=== PATIENT | male | born 1975 | race Caucasian/White ===

== ENCOUNTER 2019-04-03 17:53 | Emergency (ER) | payer OTHER, SELFPAY ==
[2019-04-03 18:07] VITALS: BP 120/67; PULSE 77; RESP 20; TEMP 36.7; O2SAT 100
--- NOTE | 2019-04-03 18:38 | ED.GENADULT ---
HPI - General Adult General Chief complaint: Dental/Oral Stated complaint: toothache/jaw pain Time Seen by Provider: 04/03/19 18:30 Source: patient Mode of arrival: ambulatory Limitations: no limitations History of Present Illness HPI narrative: Patient is a 43-year-old male who presents to emergency department for evaluation of right lower dental pain with history of decay noting moderate aching pain worse with eating denies fever chills nausea vomiting or URI symptoms and is otherwise resting comfortably in the room upon arrival has taken ibuprofen with minimal improvement Related Data Home Medications Medication Instructions Recorded Confirmed famotidine 04/03/19 Allergies Allergy/AdvReac Type Severity Reaction Status Date / Time haloperidol Allergy Unknown Anaphylaxis Verified 04/03/19 18:09 Review of Systems Review of Systems: Narrative: CONSTITUTIONAL: Denies fever, chills, or sweats. EYES: Denies redness, or discharge. ENT: Denies rhinorrhea, congestion, sore throat, or otalgia. RESPIRATORY: Denies cough or dyspnea. GASTROINTESTINAL: Denies nausea, vomiting SKIN: Denies facial swelling MUSCULOSKELETAL: Denies back pain, joint pain, or myalgia. NEUROLOGIC: Denies headache, dizziness PMFSH Social History Social History Smoking status: Never smoker Second hand tobacco smoke exposure: Yes Alcohol intake: never Gender identity (if verbalized by the patient): Male Exam Narrative: Exam Narrative: GENERAL: Well-appearing, well-nourished, and in no acute distress. HEAD: Normocephalic, atraumatic. EYES: PERRLA and EOMI. ENT: Nares clear, no rhinorrhea or epistaxis. Mucous membranes moist. Oropharynx without tonsillar hypertrophy exudate or other lesions. Gross dental decay uvula midline no trismus or drooling NECK: Supple. No adenopathy or masses. CHEST: Clear to auscultation. No respiratory distress. No wheezes rales or rhonchi HEART: Regular rate and rhythm. No murmur heard. . EXTREMITIES: Normal range of motion. No edema. SKIN: Warm, dry, no rash. NEURO: No focal deficits. Alert and oriented x3. Cranial nerves II through XII grossly intact PSYCH: Normal mood and affect. Course Course Emergency Course: Patient in the room aware of case findings treatment plan and diagnosis agreeing to follow-up as directed or to return if symptoms worsen or concerns Vital Signs Vital signs: Vital Signs Temperature 98.1 F 04/03/19 18:07 Pulse Rate 77 04/03/19 18:07 Respiratory Rate 20 04/03/19 18:07 Blood Pressure 120/67 04/03/19 18:07 Pulse Oximetry 100 04/03/19 18:07 Temperature 98.1 F 04/03/19 18:07 Pulse Rate 77 04/03/19 18:07 Respiratory Rate 20 04/03/19 18:07 Blood Pressure 120/67 04/03/19 18:07 Pulse Oximetry 100 04/03/19 18:07 Medical Decision Making MDM Narrative Medical decision making narrative: Paitents pain and complaint coupled with physical findings are consistant with dentalgia. There are no focal signs of space occupying lesions that are compromising to the ariway. The floor of the mouth is soft with no signs of Ludwigs Angina. Patient is without trismus or drooling and able to swallow secreations. Patient is felt appropriate for discharge home with dental follow up. Vital Signs Vital Signs: Vital Signs Temperature 98.1 F 04/03/19 18:07 Pulse Rate 77 04/03/19 18:07 Respiratory Rate 20 04/03/19 18:07 Blood Pressure 120/67 04/03/19 18:07 Pulse Oximetry 100 04/03/19 18:07 Temperature 98.1 F 04/03/19 18:07 Pulse Rate 77 04/03/19 18:07 Respiratory Rate 20 04/03/19 18:07 Blood Pressure 120/67 04/03/19 18:07 Pulse Oximetry 100 04/03/19 18:07 Discharge Plan Discharge Clinical Impression: Toothache Patient Disposition: Home, Self-Care Condition: Stable Instructions: Antibiotic Form, Toothache (ED) Additional Instructions: Follow-up with dent
== END 2019-04-03 19:02 | disposition home or self-care (01) ==
PROVIDERS: Emergency Provider Emergency Medicine; PCP Physician Assistant
DX: K08.89 Other specified disorders of teeth and supporting structures (principal)
CPT/HCPCS: 99283; A9270

== ENCOUNTER 2022-05-27 20:39 | Emergency (ER) | payer MEDICAID, SELFPAY ==
--- NOTE | ~2022-05-27 | XR_ITS ---
XR foot RT min 3V 05/27/2022 21:13 INDICATION: Right foot pain PROCEDURE: 4 views right foot COMPARISON: No prior studies for comparison. FINDINGS: Fracture, dislocation or subluxation is not identified. Lisfranc joint is intact. Small deg enerative calcaneal enthesophyte. The soft tissues appear within normal limits. No foreign bodies ar e identified. IMPRESSION: 1: NO ACUTE BONE OR JOINT ABNORMALITY IDENTIFIED. Reviewed, dictated and finalized at location A.
[2022-05-27 20:44] VITALS: BP 141/91; PULSE 96; RESP 20; TEMP 37.2; O2SAT 99
[2022-05-27] MEDS: IBUPROFEN 400 MG TABLET 800 MG PO (21:01)
[2022-05-27] MEDS: ACETAMINOPHEN 500 MG TABLET 1000 MG PO (21:01)
[2022-05-27] MEDS: traMADol HCL (*CRX) 50 MG TABLET 100 MG PO (21:04)
--- NOTE | 2022-05-27 21:16 | ED.GENADULT ---
HPI - General Adult General Chief complaint: Extremity Injury, Lower Stated complaint: Foot pain Time Seen by Provider: 05/27/22 20:40 History of Present Illness HPI narrative: The patient is a 46-year-old male with no significant past medical history. For the last 6 months or more, the patient has had pain on the upper aspect of his right foot, close to the ankle superficially and proximally. He reports that his foot swells up at times, after a long day at work with wearing his work boots. They are not steel-toed boots. No pain in the left foot. No pain at the ankle or in the great toe. No pain elsewhere in the joints. No trauma. No deformity. Related Data Allergies Allergy/AdvReac Type Severity Reaction Status Date / Time haloperidol Allergy Unknown Anaphylaxis Verified 04/03/19 18:09 Review of Systems Review of Systems: All systems reviewed & are unremarkable except as noted in HPI and below Constitutional: Constitutional: Reports as per HPI, Reports no additional constitutional complaints, Denies chills, Denies excessive sweating, Denies fatigue, Denies fever(s), Denies headache(s) and Denies weakness Eyes: Eyes: Reports as per HPI, Reports no additional eye complaints, Denies change in vision and Denies photophobia ENT: Reports system reviewed and no additional complaints, except as documented, Reports as per HPI, Denies dysphagia, Denies vertigo, Denies dizziness, Denies headache(s), Denies lip swelling, Denies nasal congestion, Denies sore throat, Denies throat swelling and Denies tongue swelling Cardiovascular: Cardiovascular: Reports as per HPI, Reports no additional cardiovascular complaints, Denies chest pain, Denies syncope, Denies rapid heart rate and Denies dyspnea Respiratory: Respiratory: Reports as per HPI, Reports no additional respiratory complaints, Denies chest congestion, Denies cough, Denies dyspnea and Denies wheezing Gastrointestinal: Gastrointestinal: Reports as per HPI, Reports no additional gastrointestinal complaints, Denies abdominal pain, Denies constipation, Denies dysphagia, Denies diarrhea, Denies nausea and Denies vomiting Genitourinary: Genitourinary: Reports as per HPI, Denies hematuria, Denies oliguria, Denies dysuria, Denies urinary frequency, Denies urinary incontinence and Denies urinary urgency Musculoskeletal: Musculoskeletal: Reports no additional musculoskeletal complaints, Denies back pain, Denies myalgias, Denies arthralgias, Denies joint swelling and Denies numbness Integumentary/Breasts: Skin/Breast: Reports system reviewed and no additional complaints, except as docu, Denies pruritus, Denies erythema, Denies rash and Denies skin ulcer Neurologic: Reports system reviewed and no additional complaints, except as documented, Reports as per HPI, Denies confusion, Denies vertigo, Denies dizziness, Denies syncope, Denies headache(s), Denies focal weakness, Denies numbness and Denies weakness Psychiatric: Psychiatric: Reports as per HPI, Denies anxiety, Denies confusion, Denies depression, Denies homicidal ideation and Denies suicidal ideation Endocrine: Endocrine: Reports no additional endocrine complaints, Denies excessive sweating, Denies fatigue, Denies polydipsia and Denies polyuria Hematologic/Lymphatic: Hematologic/Lymphatic: Reports no additional hematologic/lymphatic complaints, Denies easy bleeding and Denies easy bruising Allergic/Immunologic: Allergic/Immunologic: Reports no additional allergic/immunologic complaints, Denies lip swelling, Denies throat swelling, Denies tongue swelling and Denies wheezing PMFSH Social History Social History Smoking status: Never smoker Second hand tobacco smoke exposure: Yes Alcohol intake: never Gender identity (if verbalized by the patient): Male Exam Const: General: healthy appearing, no acute distress, alert and well nourished; No confusion or ill appearing Nutritional Appearan
[2022-05-27 21:39] VITALS: BP 116/86; PULSE 67; RESP 20; TEMP 36.6; O2SAT 99
== END 2022-05-27 21:40 | disposition home or self-care (01) ==
PROVIDERS: Emergency Provider Emergency Medicine
DX: M79.671 Pain in right foot (principal)
CPT/HCPCS: 73630; 99283; A9270

== ENCOUNTER 2022-06-17 01:13 | Emergency (ER) | payer MEDICAID, SELFPAY ==
[2022-06-17] VITALS (9 sets, daily range): BP systolic 106–142; BP diastolic 55–93; PULSE 64–109; RESP 16–23; TEMP 36.6–37; O2SAT 93–97
--- NOTE | ~2022-06-17 | XR_ITS ---
EXAMINATION: XR chest 2V DATE: 06/17/2022 01:47 INDICATION: Shortness of breath. Chest tightness. TECHNIQUE: Frontal and lateral views of the chest were obtained. COMPARISON: Chest 2 views 11/12/2018 FINDINGS: Calcified pulmonary nodules and calcified hilar lymph nodes are consistent with old granulo matous disease. No pleural effusion or pneumothorax. The heart size is normal. IMPRESSION: 1. No acute cardiopulmonary disease. Reviewed, dictated and finalized at location A.
--- NOTE | 2022-06-17 01:15 | ECG_ITS ---
Measurements Intervals [place] Rate: 85 P: 54 NC: 166 QRS: 66 QRSD: 94 T: 51 QT: 346 QTc: 414 Interpretive Statements SINUS RHYTHM WITH SINUS ARRHYTHMIA LOW QRS VOLTAGE IN PRECORDIAL LEADS MINIMAL Q WAVES- INFERIOR LEADS BASELINE ARTIFACT- I, II, III, AVR, AVL, AVF, V1, V4-V6 BORDERLINE ECG COMPARED TO ECG 11/12/2018 20:03:23 SINUS ARRHYTHMIA NOW PRESENT Electronically Signed On 06-17-2022 6:44:11 CDT by Jeffry Julian D.O.
--- NOTE | 2022-06-17 01:28 | ED.SOB ---
HPI - SOB/Dyspnea General Chief Complaint: Shortness of Breath/Dyspnea Stated Complaint: Asthma Source: patient Mode of arrival: ambulatory Limitations: no limitations History of Present Illness HPI Narrative: 46 year old male presents to the Emergency Department complaining of shortness of breath and chest tightness when trying to breath. Onset 20 minutes ago while laying in bed at rest. History of asthma. He used his inhaler twice without any relief. Non-smoker. No cough or chest congestion. 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 Family history positive for heart disease. MD elicited complaint: shortness of breath Pertinent past history: asthma Onset (ago): minute(s) (20) Timing: constant Severity: moderate Exacerbating factors: nothing Relieving factors: nothing Known history of: asthma Treatment prior to arrival: bronchodilator (without relief) Related Data Home oxygen amount: none Home Medications Medication Instructions Recorded Confirmed levalbuterol tartrate 2 puff inhalation Q4-6H PRN 06/17/22 06/17/22 Shortness Of Breath Allergies Allergy/AdvReac Type Severity Reaction Status Date / Time haloperidol Allergy Unknown Anaphylaxis Verified 04/03/19 18:09 Review of Systems Review of Systems: All systems reviewed & are unremarkable except as noted in HPI and below Constitutional: Constitutional: Reports as per HPI, Denies chills and Denies fever(s) Eyes: Eyes: Reports as per HPI ENT: Reports system reviewed and no additional complaints, except as documented Cardiovascular: Cardiovascular: Reports as per HPI Respiratory: Respiratory: Reports as per HPI and Reports dyspnea Gastrointestinal: Gastrointestinal: Reports as per HPI, Denies diarrhea, Denies nausea and Denies vomiting Musculoskeletal: Musculoskeletal: Reports no additional musculoskeletal complaints Integumentary/Breasts: Skin/Breast: Reports system reviewed and no additional complaints, except as docu Neurologic: Reports system reviewed and no additional complaints, except as documented [facility] Social History Social History Smoking status: Never smoker Second hand tobacco smoke exposure: Yes Alcohol intake: never Gender identity (if verbalized by the patient): Male Exam Const: General: no acute distress Nutritional Appearance: obese Orientation/consciousness: patient oriented x3 Limitations: no limitations HENMT: Head: normal to inspection Ears: external ears normal Face/Nose/Sinus: Normal external nose present Face and sinus: normal facial exam Mouth: Yes Normal oral and palatal mucosa present Eyes: Conjunctivae: conjunctivae normal Pupils: Equal, round and reactive pupils present EOM: EOMs intact bilaterally Direct Ophthalmoscopy: no photophobia Neck: Neck: normal visual inspection Chest: Chest palpation & inspection: normal inspection of the chest Resp: Effort & Inspection: normal respiratory effort Auscultation: clear to auscultation bilaterally Cardio: Rate: regular rate Rhythm: regular rhythm Heart sounds: no murmurs GI: GI Palp: Yes Soft to palpation and No Tenderness to palpation present (GI) Auscultation: normal bowel sounds Skin: General skin exam: normal color Rashes: no rashes Neuro: General: patient oriented x3, moves all extremities, no meningeal signs, no focal motor deficits and CN's II-XI intact bilaterally Cranial nerves: Yes Nystagmus not present Speech: normal speech Extrem: General: normal to inspection and no pedal edema Psych: Mental Status: mental status grossly normal Course Course Emergency Course: 46 y/o male presents to the ED c/o SOB and chest tightness. Onset 20 minutes ago while at rest in bed. Used inhaler without relief. PE: no acute findings CBC: H/H 14.5/44.3, Plt 248; wbc 8.3 with 65 S, 21 L, 11 M CMP: Na 141, K 3.8, Cl 107, CO2 26, Glc 97, BUN 16, Cr 1.12; LFT's normal TNI: <4 / 3
[2022-06-17] MEDS: NITROGLYCERIN SL 0.4 MG TABLET SUBLINGUAL ×2 (01:34→01:50)
[2022-06-17] MEDS: ASPIRIN 81 MG CHEWABLE TABLET 324 MG PO (01:34)
[2022-06-17 01:45] LABS: Base Excess ABG -1.4 mmol/L (0-2); Carboxyhemoglobin 0.4 % (0-1.5); HCO3 ABG 22.2 mmol/L (23-29); Methemoglobin ABG 0.3 % (0-1.5); Oxygen Saturation ABG 96.7 % (95-97); PCO2 ABG 34.6 mmHg (35-45); PO2 ABG 88.5 mmHg (80-90); Reduced Hemoglobin 3.3 % (0-1.5); Total Hemoglobin 14.8 g/dL (12.0-18.0); pH ABG 7.43 (7.35-7.45)
[2022-06-17 01:46] LABS: Device ROOM AIR; Modified Allen's Test Pass; Site Drawn LEFT RADIAL
[2022-06-17 01:49] LABS: Basophils Absolute Auto 0.04 K/mm3 (0.00-0.10); Basophils Percent Auto 0.5 % (0.0-1.0); Eosinophils Absolute Auto 0.17 K/mm3 (0.02-0.50); Eosinophils Percent Auto 2.1 % (1.0-6.0); Hematocrit 44.3 % (40.0-54.0); Hemoglobin 14.5 g/dL (14.0-18.0); Immature Granulocyte Absolute 0.04 K/mm3 (0.00-0.00); Immature Granulocyte Percent A 0.5 % (0.0-0.0); Lymphocytes Absolute Auto 1.76 K/mm3 (1.10-4.50); Lymphocytes Percent Auto 21.2 % (18.0-42.0); Mean Corpuscular HGB Conc 32.7 g/dL (32.0-36.0); Mean Corpuscular Hemoglobin 28.8 pg (27.0-31.0); Mean Corpuscular Volume 88.1 fL (78.0-102.0); Mean Platelet Volume 9.8 fl (8.7-11.0); Monocytes Absolute Auto 0.91 K/mm3 (0.10-0.90); Neutrophils Absolute Auto 5.4 K/mm3 (1.7-7.2); Neutrophils Percent Auto 64.7 % (50.0-70.0); Platelet Count Result 248 K/mm3 (150-420); Red Blood Count 5.03 M/mm3 (4.70-6.10); Red Cell Distribution Width 13.2 % (11.6-14.4); White Blood Count 8.3 K/mm3 (4.8-10.8)
[2022-06-17 02:05] LABS: D Dimer 0.25 mg/L (0.19-0.50)
[2022-06-17 02:07] LABS: Alanine Aminotransferase 32 U/L (16-63); Albumin Level 3.6 g/dL (3.4-5.0); Alkaline Phosphatase 97 U/L (46-116); Anion Gap 8 mmol/L (8-16); Aspartate Amino Transferase 25 U/L (15-37); Bilirubin,Total 0.3 mg/dL (0.00-1.00); Blood Urea Nitrogen 16 mg/dL (7-18); Calcium 8.6 mg/dL (8.5-10.1); Carbon Dioxide 26 mmol/L (21-32); Chloride 107 mmol/L (98-108); Estimated CRCL calculation 87 ml/min; Estimated Glomerular Filt Rate > 60; Glucose 97 mg/dL (70-99); Osmolality Calculated 293 mOsm/kg (285-295); Potassium 3.8 mmol/L (3.5-5.1); Sodium 141 mmol/L (136-145); Total Protein 7.1 g/dL (6.4-8.2)
[2022-06-17 02:08] LABS: Troponin I < 4.0 ng/L (0.00-60.4)
--- NOTE | 2022-06-17 02:14 | PC.NURSE ---
nasal swab for Covid sent to lab
[2022-06-17 03:49] LABS: Influenza A QL RT-PCR Negative (Negative); Influenza B QL RT-PCR Negative (Negative); SARS-CoV-2 RNA PCR Negative (Negative)
[2022-06-17 05:14] LABS: Troponin I < 4.0 ng/L (0.00-60.4)
== END 2022-06-17 05:40 | disposition home or self-care (01) ==
PROVIDERS: Emergency Provider Emergency Medicine; PCP Family Medicine
DX: I25.9 Chronic ischemic heart disease, unspecified (principal); R06.02 Shortness of breath; Z20.822 Contact with and (suspected) exposure to COVID-19
CPT/HCPCS: 36415; 36600; 71046; 80053; 82375; 82805; 83050; 84484; 85025; 85380; 87636; 93005; 99284; A9270

== ENCOUNTER 2022-08-08 22:43 | Emergency (ER) | payer OTHER, SELFPAY ==
--- NOTE | ~2022-08-08 | XR_ITS ---
EXAMINATION: XR chest 2V Exam Date/Time: 08/08/2022 22:54 CDT HISTORY: cp Comparison: 06/17/2022, 01/16/2014. RESULT: Lines, tubes, and devices: None. Lungs and pleura: Clear. Calcified granulomas. Cardiomediastinal silhouette: Stable. Calcified hilar nodes. Other: No acute osseous or upper abdominal finding. IMPRESSION: No acute cardiopulmonary process. Reviewed, dictated and finalized at location K.
--- NOTE | 2022-08-08 22:44 | ECG_ITS ---
Measurements Intervals [place] Rate: 69 P: 54 NC: 178 QRS: 55 QRSD: 102 T: 44 QT: 382 QTc: 410 Interpretive Statements SINUS RHYTHM WITH SINUS ARRHYTHMIA NORMAL ELECTROCARDIOGRAM COMPARED TO ECG 06/17/2022 01:27:03 NO SIGNIFICANT CHANGES Electronically Signed On 08-09-2022 17:06:28 CDT by Kai Lee M.D.
[2022-08-08 22:50] VITALS: BP 146/97; PULSE 73; RESP 18; TEMP 36.2; O2SAT 100
[2022-08-08] MEDS: MECLIZINE HCL 25 MG TABLET PO (23:08)
[2022-08-08] MEDS: ONDANSETRON INJ 4 MG/2 ML VIAL IV PUSH (23:08)
[2022-08-08 23:10] LABS: Basophils Absolute Auto 0.1 K/mm3 (0.0-0.1); Basophils Percent Auto 0.7 % (0.2-1.2); Eosinophils Absolute Auto 0.2 K/mm3 (0-0.3); Eosinophils Percent Auto 3.4 % (0-4.4); Hematocrit 44.9 % (42.0-52.0); Hemoglobin 14.9 g/dL (14.0-18.0); Immature Granulocyte Absolute 0.02 K/mm3 (0.00-0.031); Immature Granulocyte Percent A 0.3 % (0-0.5); Lymphocytes Absolute Auto 1.81 K/mm3 (0.9-3.2); Lymphocytes Percent Auto 26.7 % (18.3-44.2); Mean Corpuscular HGB Conc 33.2 g/dl (32-36); Mean Corpuscular Hemoglobin 28.9 pg (26-34); Mean Platelet Volume 9.2 fl (7.4-10.4); Monocytes Absolute Auto 0.8 K/mm3 (0.1-0.6); Monocytes Percent Auto 11.8 % (2.6-8.5); Neutrophils Absolute Auto 3.9 K/mm3 (1.3-6.7); Neutrophils Percent Auto 57.1 % (45.5-73.1); Platelet Count Result 252 k/mm3 (150-375); Red Blood Count 5.16 M/mm3 (4.6-6.20); Red Cell Distribution Width 13.1 % (11.5-14.5); White Blood Count 6.8 K/mm3 (4.5-10.0)
[2022-08-08] MEDS: ASPIRIN 81 MG CHEWABLE TABLET 324 MG PO (23:12)
[2022-08-08 23:13] VITALS: PULSE 73
[2022-08-08 23:22] LABS: Partial Thromboplastin Time 27.1 SECONDS (22.3-36.8); Prothrombin Time 13.1 Seconds (11.1-14.7)
[2022-08-08 23:23] LABS: Alanine Aminotransferase 30 U/L (6-50); Albumin Level 4.1 g/dL (3.5-5.1); Alkaline Phosphatase 78 U/L (38-126); Anion Gap 6 mmol/L (8-16); Aspartate Amino Transferase 33 U/L (17-59); Bilirubin,Total 0.3 mg/dL (0.2-1.3); Blood Urea Nitrogen 18 mg/dL (9-20); Calcium 8.8 mg/dL (8.4-10.2); Carbon Dioxide 25 mmol/L (22-30); Chloride 108 mmol/L (98-107); Estimated CRCL calculation 105 ml/min; Estimated Glomerular Filt Rate > 60; Glucose 103 mg/dL (65-110); Lipase 93 U/L (23-300); Sodium 139 mmol/L (137-145)
[2022-08-08 23:33] LABS: Troponin I < 0.012 ng/mL (0.000-0.034)
--- NOTE | 2022-08-08 23:57 | ED.DIZZY ---
HPI - Dizziness General Chief Complaint: Dizziness Stated Complaint: dizziness, chest pain Time Seen by Provider: 08/08/22 22:54 History of Present Illness HPI Narrative: 46-year-old male presented to the emergency department for evaluation of dizziness and chest pain. 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 Patient has been doing a lot of bending over. While patient was in the car this evening he developed a sensation of dizziness and then did develop some subsequent chest pain. Upon arrival to ED patient was treated with meclizine and states that this did help with his dizziness. Related Data Home Medications Medication Instructions Recorded Confirmed levalbuterol tartrate 2 puff inhalation Q4-6H PRN 06/17/22 06/17/22 Shortness Of Breath Allergies Allergy/AdvReac Type Severity Reaction Status Date / Time haloperidol Allergy Unknown Anaphylaxis Verified 08/08/22 23:09 Review of Systems Review of Systems: All systems reviewed & are unremarkable except as noted in HPI and below PMFSH Social History Social History Smoking status: Never smoker Second hand tobacco smoke exposure: Yes Alcohol intake: never Gender identity (if verbalized by the patient): Male Exam Narrative: APPEARANCE: Well appearing, no pain, no distress, well-nourished. HEAD: normocephalic, atraumatic. EYES: PERRLA/EOMI, conjunctivae clear. NOSE: Normal no drainage NECK: Supple. No adenopathy, no masses. RESPIRATORY: Airway patent, respirations nonlabored. Clear to auscultation bilaterally, no rales, rhonchi, wheezing. CARDIOVASCULAR: Regular rate and rhythm without murmurs rubs or gallops. ABDOMINAL: Soft, nontender, nondistended, normal bowel sounds MUSCULOSKELETAL: Moves all extremities. Strength/ROM intact, No edema, No calf tenderness. NEURO: Alert. Cranial nerves II through XII intact. Grossly intact SKIN: Warm, dry. Normal Color Course Course Emergency Course: 46-year-old male presented the ED for evaluation of dizziness and chest pain. Patient's EKG showed no evidence of acute ischemia patient's initial troponin was negative. Patient was treated with meclizine for his vertigo symptoms and states that these were improved. Patient was afebrile with no leukocytosis. Patient's CMP is within normal limits. Patient's chest x-ray showed no acute cardiopulmonary abnormality. Patient requested to leave prior to his second troponin resulting. Patient was still having some chest pain. Patient was advised on the risk of leaving and patient was willing to sign out AGAINST MEDICAL ADVICE. Vital Signs Vital signs: Vital Signs Temperature 97.1 F L 08/08/22 22:50 Pulse Rate 73 08/08/22 22:50 Respiratory Rate 18 08/08/22 22:50 Blood Pressure 146/97 H 08/08/22 22:50 Pulse Oximetry 100 08/08/22 22:50 Oxygen Delivery Room Air 08/08/22 22:50 Temperature 97.1 F L 08/08/22 22:50 Pulse Rate 73 08/08/22 23:13 Respiratory Rate 18 08/08/22 22:50 Blood Pressure 146/97 H 08/08/22 22:50 Pulse Oximetry 100 08/08/22 22:50 Oxygen Delivery Room Air 08/08/22 22:50 MDM - Dizziness Differential Diagnosis Differential diagnosis: Likely benign paroxysmal positional vertigo, orthostatic hypotension and other Lab Data Attestation: I reviewed the patient's lab results. 08/08/22 23:02 08/08/22 23:02 Labs: Lab Results 08/08/22 Range/Units 23:02 WBC 6.8 (4.5-10.0) K/mm3 RBC 5.16 (4.6-6.20) M/mm3 Hgb 14.9 (14.0-18.0) g/dL Hct 44.9 (42.0-52.0) % MCV 87.0 (80-100) fl MCH 28.9 (26-34) pg MCHC 33.2 (32-36) g/dl RDW 13.1 (11.5-14.5) % Plt Count 252 (150-375) k/mm3 MPV 9.2 (7.4-10.4) fl Immature Gran % (Auto) 0.3 (0-0.5) % Neut % (Auto) 57.1 (45.5-73.1) % Lymph % (Auto) 26.7 (18.3-44.2) % [place] % (Auto) 11.8 H (
[2022-08-09] MEDS: SODIUM CHLORIDE 0.9% IV 1,000 ML 999 ML IV CONT (00:12)
[2022-08-09] MEDS: KETOROLAC 15 MG/ML VIAL (*BKC) IV PUSH (00:12)
== END 2022-08-09 04:49 | disposition left against medical advice (07) ==
LOC: ANHED 23:01
PROVIDERS: Emergency Provider Emergency Medicine; PCP Family Medicine
DX: H81.10 Benign paroxysmal vertigo, unspecified ear (principal); R07.9 Chest pain, unspecified; Z77.22 Contact with and (suspected) exposure to environmental tobacco smoke (acute) (chronic)
CPT/HCPCS: 36415; 71046; 80053; 83690; 84484; 85025; 85610; 85730; 93005; 96361; 96374; 96375; 99284; A9270; J1885; J2405; J7030

== ENCOUNTER 2022-11-16 01:50 | Emergency (ER) | payer OTHER, SELFPAY ==
--- NOTE | ~2022-11-16 | CT_ITS ---
EXAMINATION: CT abdomen pelvis wo con DATE: 11/16/2022 02:40 INDICATION: Mid to upper abdominal pain. Loose stools. TECHNIQUE: Computed tomography (CT) of the abdomen and pelvis was performed without intravenous contr ast. Automated exposure control and iterative reconstruction technique were employed. Exam dose: 140 5.07 mGy-cm total exam DLP. COMPARISON: None. FINDINGS: Calcified bilateral lower lobe pulmonary granulomas and calcified right hilar and subcarina l nodes, consistent with old granulomatous disease. Normal heart size. No pericardial or pleural effusion. The liver, gallbladder, bile ducts, spleen, pancreas, pancreatic duct, and adrenal glands are unremar kable. 3 mm lower pole right renal calculus and pinpoint lower pole right renal calculus. No other urinary t ract calculus. No hydroureteronephrosis is noted on either side. No renal mass lesion is evident on t his limited noncontrast examination. Normal caliber of the abdominal aorta. No intraperitoneal or retroperitoneal or pelvic mass lesion or adenopathy or ascites. Moderate prostate enlargement and calcification. Mild diffuse thickening of the urinary bladder wall. Normal appendix. No bowel obstruction, bowel wall thickening, pneumatosis or intraperitoneal free air . Included skeletal structures are unremarkable. IMPRESSION: Nonobstructive right nephrolithiasis Moderate prostate enlargement and calcification Reviewed, dictated and finalized at [facility]. Reviewed, dictated and finalized at location [facility].
[2022-11-16 01:56] VITALS: BP 153/107; PULSE 81; RESP 20; TEMP 36.6; O2SAT 98
--- NOTE | 2022-11-16 02:02 | ECG_ITS ---
Measurements Intervals [place] Rate: 77 P: 47 [place]: 183 QRS: 51 QRSD: 84 T: 60 QT: 352 QTc: 398 Interpretive Statements SINUS RHYTHM WITH SINUS ARRHYTHMIA LOW QRS VOLTAGE IN PRECORDIAL LEADS [QRS DEFLECTION < 1.0 mV IN CHEST LEADS] ABNORMAL ECG COMPARED TO ECG 08/08/2022 22:48:32 NO SIGNIFICANT CHANGES Electronically Signed On 11-16-2022 8:37:14 CDT by Tay Jiménez M.D.
--- NOTE | 2022-11-16 02:08 | ED.ABDPAIN ---
HPI - Abdominal Pain General Chief Complaint: Abdominal Pain Stated Complaint: Abd Pain Time Seen by Provider: 11/16/22 01:56 Source: patient Mode of arrival: ambulatory Limitations: no limitations History of Present Illness HPI narrative: patient is a 47-year-old male with midepigastric abdominal pain this evening. Patient awoke with pain and came to the ER for further evaluation. MD elicited complaint: abdominal pain Pertinent past history: none Onset (ago): hour(s) Pain Consistency: constant Location: epigastric Severity: moderate Pain scale (0-10): 5 Quality: stabbing and sharp Radiation: none Migration to: no migration Exacerbating factors: nothing Relieving factors: nothing Associated symptoms: denies other symptoms Related Data Home Medications Medication Instructions Recorded Confirmed No Home Medications 11/16/22 11/16/22 Allergies Allergy/AdvReac Type Severity Reaction Status Date / Time haloperidol Allergy Unknown Anaphylaxis Verified 08/08/22 23:09 Review of Systems Review of Systems: All systems reviewed & are unremarkable except as noted in HPI and below Constitutional: Constitutional: Reports no additional constitutional complaints Eyes: Eyes: Reports no additional eye complaints ENT: Reports system reviewed and no additional complaints, except as documented Cardiovascular: Cardiovascular: Reports no additional cardiovascular complaints Respiratory: Respiratory: Reports no additional respiratory complaints Gastrointestinal: Gastrointestinal: Reports no additional gastrointestinal complaints Genitourinary: Genitourinary: Reports no additional male genitourinary complaints Musculoskeletal: Musculoskeletal: Reports no additional musculoskeletal complaints Integumentary/Breasts: Skin/Breast: Reports system reviewed and no additional complaints, except as docu Neurologic: Reports system reviewed and no additional complaints, except as documented Psychiatric: Psychiatric: Reports no additional psychiatric complaints Endocrine: Endocrine: Reports no additional endocrine complaints Hematologic/Lymphatic: Hematologic/Lymphatic: Reports no additional hematologic/lymphatic complaints Allergic/Immunologic: Allergic/Immunologic: Reports no additional allergic/immunologic complaints PMFSH Social History Social History Smoking status: Never smoker Second hand tobacco smoke exposure: Yes Alcohol intake: never Gender identity (if verbalized by the patient): Male Exam Const: General: healthy appearing Nutritional Appearance: well nourished Orientation/consciousness: patient oriented x3 Limitations: no limitations HENMT: Head: normal to inspection Ears: external ears normal Face/Nose/Sinus: Normal external nose present Eyes: Conjunctivae: conjunctivae normal Pupils: Equal, round and reactive pupils present EOM: EOMs intact bilaterally Neck: Neck: normal visual inspection Chest: Chest palpation & inspection: normal inspection of the chest Resp: Effort & Inspection: normal respiratory effort Auscultation: clear to auscultation bilaterally and no crackles Cardio: Rate: regular rate Rhythm: regular rhythm Heart sounds: no murmurs GI: Inspection: non-distended GI Palp: Yes Soft to palpation, Yes Tenderness to palpation present (GI) ( Epigastric area), No Guarding due to palpation present (GI), No Rigid due to palpation, No Hernia present, No Palpable mass present and No Rebound tenderness present Auscultation: normal bowel sounds : General: Yes bladder normal to palpation Back/Spine/Pelvis: Back: no CVA tenderness Skin: General skin exam: normal color Rashes: no rashes Wounds: no wounds Neuro: General: patient oriented x3 Cranial nerves: Yes Nystagmus not present Speech: normal speech Extrem: General: normal to inspection Psych: Mental Status: mental status grossly normal Affect: normal affect Attitu
[2022-11-16] MEDS: MAG HYDROX/ALUMINUM HYD/SIMETH 30 ML, PHENobarb/HYOSCY/ATROPINE/SCOP 32.4 MG, LIDOCAINE... PO (02:09)
[2022-11-16 02:15] LABS: Basophils Absolute Auto 0.05 K/mm3 (0.00-0.10); Basophils Percent Auto 0.8 % (0.0-1.0); Eosinophils Absolute Auto 0.16 K/mm3 (0.02-0.50); Eosinophils Percent Auto 2.5 % (1.0-6.0); Hematocrit 45.9 % (40.0-54.0); Hemoglobin 15.2 g/dL (14.0-18.0); Immature Granulocyte Absolute 0.02 K/mm3 (0.00-0.00); Immature Granulocyte Percent A 0.3 % (0.0-0.0); Lymphocytes Absolute Auto 2.15 K/mm3 (1.10-4.50); Lymphocytes Percent Auto 33.1 % (18.0-42.0); Mean Corpuscular HGB Conc 33.1 g/dL (32.0-36.0); Mean Corpuscular Hemoglobin 28.8 pg (27.0-31.0); Mean Corpuscular Volume 86.9 fL (78.0-102.0); Mean Platelet Volume 9.7 fl (8.7-11.0); Monocytes Absolute Auto 0.69 K/mm3 (0.10-0.90); Monocytes Percent Auto 10.6 % (2.0-11.0); Neutrophils Absolute Auto 3.4 K/mm3 (1.7-7.2); Neutrophils Percent Auto 52.7 % (50.0-70.0); Platelet Count Result 276 K/mm3 (150-420); Red Blood Count 5.28 M/mm3 (4.70-6.10); Red Cell Distribution Width 12.9 % (11.6-14.4); White Blood Count 6.5 K/mm3 (4.8-10.8)
[2022-11-16 02:25] LABS: Add Urine Microscopic? NO; Appearance Urine Clear (Clear); Bilirubin Urine Negative (Negative); Blood Urine Negative (Negative); Color Urine Light Yellow (Yellow); Glucose Urine UA Negative (Negative); Ketones Urine Negative (Negative); Leukocyte Esterase Ur Negative LEU/UL (Negative); Nitrate Urine Negative (Negative); Protein Urine Negative (Negative); Urobilinogen Urine 0.2 mg/dL (0.2-1.0)
[2022-11-16 02:33] LABS: Lactic Acid Reflex 1.2 mmol/L (0.4-2.0)
[2022-11-16 02:42] LABS: Alanine Aminotransferase 40 U/L (16-63); Albumin Level 3.5 g/dL (3.4-5.0); Alkaline Phosphatase 110 U/L (46-116); Anion Gap 7 mmol/L (8-16); Aspartate Amino Transferase 15 U/L (15-37); Bilirubin,Total 0.3 mg/dL (0.00-1.00); Blood Urea Nitrogen 16 mg/dL (7-18); Calcium 8.8 mg/dL (8.5-10.1); Carbon Dioxide 25 mmol/L (21-32); Chloride 106 mmol/L (98-108); Estimated CRCL calculation 85 ml/min; Estimated Glomerular Filt Rate > 60; Glucose 109 mg/dL (70-99); Lipase 51 U/L (16-77); Osmolality Calculated 288 mOsm/kg (285-295); Potassium 4.1 mmol/L (3.5-5.1); Sodium 138 mmol/L (136-145); Total Protein 6.8 g/dL (6.4-8.2)
[2022-11-16 02:43] LABS: Troponin I < 4.0 ng/L (0.00-60.4)
[2022-11-16 03:14] VITALS: BP 132/85; PULSE 75; RESP 18; O2SAT 98
--- NOTE | 2022-11-16 03:14 | PC.NURSE ---
Pt resting c friend in room. He reports less pain and feeling some better, explained wait time for results of CT to pt. VSS, call soto at side.
--- NOTE | 2022-11-16 04:00 | PC.NURSE ---
Pt continuing to wait for CT results, discussed wait times and and need for test results, pt reports he is feeling better at this time.
--- NOTE | 2022-11-16 04:46 | PC.NURSE ---
Pt wanted to leave and not wait for CT scan results. He spoke to Dr Kohli and stated he would sign AMA. Pt sitting at side of bed, dressed and reports feeling better, he understands risks of leaving. Explained to pt about wait times for CT results and he still wants to leave. States he will return if sxs recur or worsen. Pt then signed AMA form c all risks/benefits explained.
[2022-11-16 04:49] VITALS: BP 140/88; PULSE 74; RESP 18; O2SAT 99
== END 2022-11-16 04:50 | disposition left against medical advice (07) ==
PROVIDERS: Emergency Provider Emergency Medicine; PCP Family Medicine
DX: R10.13 Epigastric pain (principal); N20.0 Calculus of kidney; N40.0 Benign prostatic hyperplasia without lower urinary tract symptoms; Z53.29 Procedure and treatment not carried out because of patient's decision for other reasons
CPT/HCPCS: 36415; 74176; 80053; 81003; 83605; 83690; 84484; 85025; 93005; 99284; A9270

== ENCOUNTER 2022-12-02 10:52 | Outpatient (CLI) | payer OTHER, SELFPAY ==
[2022-12-02 11:13] LABS: Basophils Absolute Auto 0.03 K/mm3 (0.00-0.10); Basophils Percent Auto 0.6 % (0.0-1.0); Eosinophils Absolute Auto 0.07 K/mm3 (0.02-0.50); Eosinophils Percent Auto 1.5 % (1.0-6.0); Hematocrit 47.7 % (40.0-54.0); Immature Granulocyte Absolute 0.02 K/mm3 (0.00-0.00); Immature Granulocyte Percent A 0.4 % (0.0-0.0); Lymphocytes Absolute Auto 0.75 K/mm3 (1.10-4.50); Lymphocytes Percent Auto 15.9 % (18.0-42.0); Mean Corpuscular HGB Conc 33.5 g/dL (32.0-36.0); Mean Corpuscular Volume 86.6 fL (78.0-102.0); Mean Platelet Volume 9.4 fl (8.7-11.0); Monocytes Absolute Auto 0.63 K/mm3 (0.10-0.90); Monocytes Percent Auto 13.4 % (2.0-11.0); Neutrophils Absolute Auto 3.2 K/mm3 (1.7-7.2); Neutrophils Percent Auto 68.2 % (50.0-70.0); Platelet Count Result 242 K/mm3 (150-420); Red Blood Count 5.51 M/mm3 (4.70-6.10); White Blood Count 4.7 K/mm3 (4.8-10.8)
[2022-12-02 11:16] LABS: Appearance Urine Clear (Clear); Bilirubin Urine Negative (Negative); Blood Urine Negative (Negative); Color Urine Light Yellow (Yellow); Glucose Urine UA Negative (Negative); Ketones Urine Negative (Negative); Leukocyte Esterase Ur Negative (Negative); Nitrate Urine Negative (Negative); Protein Urine Negative (Negative); Specific Grav Ur >= 1.030 (1.010-1.020); Urobilinogen Urine 0.2 mg/dL (0.2-1.0); pH Urine 5.5 (5.0-8.0)
[2022-12-02 11:22] LABS: Add Urine Microscopic? NO
[2022-12-02 12:17] LABS: Alanine Aminotransferase 37 U/L (16-63); Albumin Level 3.6 g/dL (3.4-5.0); Alkaline Phosphatase 96 U/L (46-116); Amylase 48 U/L (25-115); Anion Gap 12 mmol/L (8-16); Aspartate Amino Transferase 20 U/L (15-37); Bilirubin,Total 0.3 mg/dL (0.00-1.00); Blood Urea Nitrogen 10 mg/dL (7-18); Calcium 8.9 mg/dL (8.5-10.1); Carbon Dioxide 22 mmol/L (21-32); Chloride 106 mmol/L (98-108); Estimated Glomerular Filt Rate > 60; Glucose 105 mg/dL (70-99); Lipase 38 U/L (16-77); Osmolality Calculated 289 mOsm/kg (285-295); Potassium 4.4 mmol/L (3.5-5.1); Sodium 140 mmol/L (136-145); Total Protein 6.9 g/dL (6.4-8.2)
== END 2022-12-02 10:53 | disposition home or self-care (01) ==
LOC: CHSLAB 10:54
PROVIDERS: PCP Family Medicine; Visit Provider Family Medicine
DX: R10.11 Right upper quadrant pain (principal)
CPT/HCPCS: 36415; 80053; 81003; 82150; 83690; 85025

== ENCOUNTER 2022-12-14 00:27 | Emergency (ER) | payer OTHER, SELFPAY ==
[2022-12-14 00:37] VITALS: BP 151/98; PULSE 96; RESP 20; TEMP 36.9; O2SAT 100
--- NOTE | 2022-12-14 01:30 | PC.NURSE ---
immediately after triage assessment was complete patient walked out er door and did not return
== END 2022-12-14 01:46 | disposition left against medical advice (07) ==
PROVIDERS: PCP Family Medicine
DX: R11.10 Vomiting, unspecified (principal)
CPT/HCPCS: 99199

== ENCOUNTER 2023-02-27 16:16 | Outpatient (CLI) | payer OTHER, SELFPAY ==
[2023-02-27 17:07] LABS: SARS-CoV-2 RNA PCR Negative (Negative)
[2023-02-27 17:08] LABS: Influenza A QL RT-PCR Negative (Negative); Influenza B QL RT-PCR Negative (Negative)
== END 2023-02-27 16:17 | disposition home or self-care (01) ==
LOC: CHSLAB 16:18
PROVIDERS: PCP Family Medicine; Visit Provider Family Medicine
DX: J06.9 Acute upper respiratory infection, unspecified (principal); Z20.822 Contact with and (suspected) exposure to COVID-19
CPT/HCPCS: 87636

== ENCOUNTER 2023-03-03 22:40 | Emergency (ER) | payer OTHER, SELFPAY ==
[2023-03-03 22:40] VITALS: BP 153/96; PULSE 83; RESP 18; TEMP 36.6; O2SAT 98
--- NOTE | 2023-03-03 22:52 | ED.ABDPAIN ---
HPI - Abdominal Pain General Chief Complaint: Abdominal Pain Stated Complaint: right upper abdominal pain Time Seen by Provider: 03/03/23 22:50 Source: patient Mode of arrival: ambulatory Limitations: no limitations History of Present Illness HPI narrative: 47 year old male presents to the Emergency Department complaining of right upper quadrant abdominal pain. Onset 9 am today. Denies any prior history of. States has been spreading salt today. MD elicited complaint: abdominal pain Pertinent past history: none Onset (ago): hour(s) (14) Pain Consistency: constant Location: RUQ Severity: moderate Quality: sharp Radiation: none Migration to: no migration Exacerbating factors: movement and other (palpation) Relieving factors: nothing Associated symptoms: denies other symptoms Related Data Allergies Allergy/AdvReac Type Severity Reaction Status Date / Time haloperidol Allergy Unknown Anaphylaxis Verified 08/08/22 23:09 Review of Systems Review of Systems: All systems reviewed & are unremarkable except as noted in HPI and below Constitutional: Constitutional: Reports as per HPI Eyes: Eyes: Reports as per HPI ENT: Reports system reviewed and no additional complaints, except as documented Cardiovascular: Cardiovascular: Reports as per HPI and Denies chest pain Respiratory: Respiratory: Reports as per HPI, Denies cough and Denies dyspnea Gastrointestinal: Gastrointestinal: Reports as per HPI, Reports no additional gastrointestinal complaints, Reports abdominal pain, Denies diarrhea, Denies nausea and Denies vomiting Genitourinary: Genitourinary: Reports no additional male genitourinary complaints Musculoskeletal: Musculoskeletal: Reports no additional musculoskeletal complaints Integumentary/Breasts: Skin/Breast: Reports system reviewed and no additional complaints, except as docu Neurologic: Reports system reviewed and no additional complaints, except as documented Psychiatric: Psychiatric: Reports no additional psychiatric complaints Endocrine: Endocrine: Reports no additional endocrine complaints Hematologic/Lymphatic: Hematologic/Lymphatic: Reports no additional hematologic/lymphatic complaints Allergic/Immunologic: Allergic/Immunologic: Reports no additional allergic/immunologic complaints PMFSH Past Medical History Medical History (Updated 03/04/23 @ 00:00 by Bryce Zapata MD) Abdominal pain, RUQ Social History Social History Smoking status: Never smoker Second hand tobacco smoke exposure: Yes Alcohol intake: never Gender identity (if verbalized by the patient): Male Exam Const: General: no acute distress and alert Nutritional Appearance: obese Orientation/consciousness: patient oriented x3 Limitations: no limitations HENMT: Head: normal to inspection Ears: external ears normal Face/Nose/Sinus: Normal external nose present Face and sinus: normal facial exam Eyes: Conjunctivae: conjunctivae normal Pupils: Equal, round and reactive pupils present EOM: EOMs intact bilaterally Direct Ophthalmoscopy: no photophobia Neck: Neck: normal visual inspection Chest: Chest palpation & inspection: normal inspection of the chest and no tenderness Resp: Effort & Inspection: normal respiratory effort Auscultation: clear to auscultation bilaterally Cardio: Rate: regular rate Rhythm: regular rhythm GI: Inspection: non-distended GI Palp: Yes Soft to palpation, Yes Tenderness to palpation present (GI) (RUQ) and No Guarding due to palpation present (GI) Auscultation: normal bowel sounds Back/Spine/Pelvis: Back: no CVA tenderness Skin: General skin exam: normal color Rashes: no rashes Wounds: no wounds Neuro: General: patient oriented x3 Cranial nerves: Yes Nystagmus not present Speech: normal speech Gait exam (Neuro): Normal gait present Other: grossly normal Extrem: General: normal to inspection Psych: Mental Status:
[2023-03-03 23:07] LABS: Basophils Absolute Auto 0.04 K/mm3 (0.00-0.10); Basophils Percent Auto 0.6 % (0.0-1.0); Eosinophils Absolute Auto 0.12 K/mm3 (0.02-0.50); Eosinophils Percent Auto 1.9 % (1.0-6.0); Hematocrit 44.6 % (40.0-54.0); Hemoglobin 14.2 g/dL (14.0-18.0); Immature Granulocyte Absolute 0.01 K/mm3 (0.00-0.00); Immature Granulocyte Percent A 0.2 % (0.0-0.0); Lymphocytes Percent Auto 34.1 % (18.0-42.0); Mean Corpuscular HGB Conc 31.8 g/dL (32.0-36.0); Mean Corpuscular Hemoglobin 27.4 pg (27.0-31.0); Mean Corpuscular Volume 86.1 fL (78.0-102.0); Mean Platelet Volume 9.1 fl (8.7-11.0); Monocytes Absolute Auto 0.67 K/mm3 (0.10-0.90); Monocytes Percent Auto 10.9 % (2.0-11.0); Neutrophils Absolute Auto 3.2 K/mm3 (1.7-7.2); Neutrophils Percent Auto 52.3 % (50.0-70.0); Platelet Count Result 274 K/mm3 (150-420); Red Blood Count 5.18 M/mm3 (4.70-6.10); Red Cell Distribution Width 13.2 % (11.6-14.4); White Blood Count 6.2 K/mm3 (4.8-10.8)
[2023-03-03 23:24] LABS: Alanine Aminotransferase 44 U/L (16-63); Albumin Level 3.3 g/dL (3.4-5.0); Alkaline Phosphatase 88 U/L (46-116); Amylase 59 U/L (25-115); Anion Gap 7 mmol/L (8-16); Aspartate Amino Transferase 17 U/L (15-37); Bilirubin,Total 0.2 mg/dL (0.00-1.00); Blood Urea Nitrogen 15 mg/dL (7-18); Calcium 8.2 mg/dL (8.5-10.1); Carbon Dioxide 27 mmol/L (21-32); Chloride 104 mmol/L (98-108); Estimated CRCL calculation 88 ml/min; Estimated Glomerular Filt Rate > 60; Glucose 113 mg/dL (70-99); Lipase 47 U/L (16-77); Osmolality Calculated 287 mOsm/kg (285-295); Potassium 3.9 mmol/L (3.5-5.1); Sodium 138 mmol/L (136-145); Total Protein 6.9 g/dL (6.4-8.2)
[2023-03-03 23:29] LABS: Lactic Acid Reflex 1.4 mmol/L (0.4-2.0)
[2023-03-03 23:40] LABS: Appearance Urine Clear (Clear); Bilirubin Urine Negative (Negative); Blood Urine Negative (Negative); Color Urine Yellow (Yellow); Glucose Urine UA Negative (Negative); Ketones Urine Trace (Negative); Leukocyte Esterase Ur Negative (Negative); Nitrate Urine Negative (Negative); Protein Urine Negative (Negative); Specific Grav Ur >= 1.030 (1.010-1.020); Urobilinogen Urine 0.2 mg/dL (0.2-1.0)
[2023-03-03 23:41] LABS: Add Urine Microscopic? NO
[2023-03-04] MEDS: HYDROcodone/acetaminophen (*CRX) 10-325 MG TABLET 1 TAB PO (00:06)
[2023-03-04 00:10] VITALS: BP 154/101; PULSE 83; RESP 20; TEMP 37.1; O2SAT 97
== END 2023-03-04 00:11 | disposition home or self-care (01) ==
PROVIDERS: Emergency Provider Emergency Medicine; PCP Family Medicine
DX: R10.11 Right upper quadrant pain (principal)
CPT/HCPCS: 36415; 80053; 81003; 82150; 83605; 83690; 85025; 99283; A9270

== ENCOUNTER 2023-03-05 07:41 | Outpatient (CLI) | payer OTHER, SELFPAY ==
--- NOTE | ~2023-03-05 | US_ITS ---
Limited Abdominal Sonogram: Real-time sonographic imaging of the right upper quadrant was performed. Clinical History: Abdominal pain Findings: The liver appears normal with no evidence of mass lesion or bile duct dilatation. Main por radha vein demonstrates normal direction of flow. The gallbladder is partially distended, and appears n ormal with no evidence of gallstone or wall thickening. The common bile duct measures 4 mm. The panc reas is largely obscured by bowel gas shadowing. Impression: No significant abnormality seen. Reviewed, dictated and finalized at location [facility]. 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
== END 2023-03-05 07:42 | disposition home or self-care (01) ==
LOC: CHSIMG 07:42
PROVIDERS: PCP Family Medicine; Visit Provider Family Medicine
DX: R10.11 Right upper quadrant pain (principal)
CPT/HCPCS: 76705

== ENCOUNTER 2023-03-10 08:49 | Outpatient (CLI) | payer OTHER, SELFPAY ==
--- NOTE | ~2023-03-10 | NM_ITS ---
EXAMINATION: NM hepatobiliary w pharm DATE: 03/10/2023 11:28 INDICATION: Right upper quadrant abdominal pain. COMPARISON: Ultrasound 03/05/2023 TECHNIQUE: 6.8 mCi Tc-99m mebrofenin (Choletec) was administered intravenously. Scintigraphic images of the abdomen were obtained for one hour. Then, 2.2 mcg sincalide (Kinevac) IV was administered, an d imaging was continued for 30 minutes. FINDINGS: There is normal clearance of radiotracer from the blood pool. There is homogeneous tracer u ptake by the liver. Activity progresses to the bowel and gallbladder. Gallbladder ejection fraction (GBEF) was 77%. Note that most patients with gallbladder dysfunction have GBEF < 35%, which overlaps with the broad normal range of 10-90%. IMPRESSION: 1. Normal hepatobiliary scintigraphy. Reviewed, dictated and finalized at location [facility]. ERY CADDY
== END 2023-03-10 08:50 | disposition home or self-care (01) ==
LOC: CHSIMG 08:51
PROVIDERS: PCP Family Medicine; Visit Provider Family Medicine
DX: R10.11 Right upper quadrant pain (principal)
CPT/HCPCS: 78227; A9537; J2805

== ENCOUNTER 2023-04-16 22:48 | Emergency (ER) | payer OTHER, SELFPAY ==
--- NOTE | ~2023-04-16 | XR_ITS ---
EXAMINATION: XR chest 1V portable DATE: 04/16/2023 23:04 INDICATION: Cough. TECHNIQUE: A single frontal view of the chest was obtained. COMPARISON: Chest 2 views 08/08/2022, CT abdomen and pelvis since oh 09/01 FINDINGS: Calcified pulmonary nodules and calcified hilar lymph nodes are consistent with old granulo matous disease. No pleural effusion or pneumothorax. The heart size is normal. IMPRESSION: 1. No acute cardiopulmonary disease. Reviewed, dictated and finalized at location [facility]. F TRAINER
[2023-04-16 22:50] VITALS: BP 131/90; PULSE 88; RESP 20; TEMP 36.5; O2SAT 98
--- NOTE | 2023-04-16 22:50 | ED.URI ---
HPI - URI/Sore Throat General Chief Complaint: Headache Stated Complaint: high blood pressure Time Seen by Provider: 04/16/23 22:50 Source: patient Mode of arrival: ambulatory Limitations: no limitations History of Present Illness HPI Narrative: 47-year-old male presents to the ER with -- not feeling well over the past 3 hours -- nasal congestion -- high blood pressure at home of 158/98 -- severe generalized headache the past 3 hours. No fever. No vomiting. No photophobia. No focal neuro deficit. -- Episode cough with wheezing MD elicited complaint: cough and nasal congestion Pertinent past history: asthma Onset (ago): hour(s) ( symptoms started 3 hours ago) Consistency: constant Severity: mild Able to tolerate fluids by mouth: Yes Exacerbating factors: nothing Relieving factors: nothing Associated symptoms: denies other symptoms, headache, nasal congestion, cough and shortness of breath Treatments prior to arrival: none Related Data Home Medications Medication Instructions Recorded Confirmed albuterol sulfate 90 mcg/actuation 2 puff inhalation PRN 04/16/23 04/16/23 aerosol inhaler Allergies Allergy/AdvReac Type Severity Reaction Status Date / Time haloperidol Allergy Unknown Anaphylaxis Verified 04/16/23 23:03 Review of Systems Review of Systems: All systems reviewed & are unremarkable except as noted in HPI and below Constitutional: Constitutional: Reports as per HPI and Reports no additional constitutional complaints Eyes: Eyes: Reports as per HPI and Reports no additional eye complaints ENT: Reports system reviewed and no additional complaints, except as documented and Reports as per HPI Cardiovascular: Cardiovascular: Reports as per HPI and Reports no additional cardiovascular complaints Respiratory: Respiratory: Reports as per HPI, Reports no additional respiratory complaints, Reports dyspnea and Reports wheezing Gastrointestinal: Gastrointestinal: Reports as per HPI and Reports no additional gastrointestinal complaints Genitourinary: Genitourinary: Reports no additional male genitourinary complaints Musculoskeletal: Musculoskeletal: Reports no additional musculoskeletal complaints and Reports as per HPI Integumentary/Breasts: Skin/Breast: Reports system reviewed and no additional complaints, except as docu and Reports as per HPI Neurologic: Reports system reviewed and no additional complaints, except as documented and Reports as per HPI Psychiatric: Psychiatric: Reports no additional psychiatric complaints and Reports as per HPI Endocrine: Endocrine: Reports no additional endocrine complaints and Reports as per HPI Hematologic/Lymphatic: Hematologic/Lymphatic: Reports no additional hematologic/lymphatic complaints and Reports as per HPI Allergic/Immunologic: Allergic/Immunologic: Reports no additional allergic/immunologic complaints and Reports as per HPI PMFSH Past Medical History Medical History Abdominal pain, RUQ Social History Social History Smoking status: Never smoker Second hand tobacco smoke exposure: Yes Alcohol intake: never Gender identity (if verbalized by the patient): Male Exam Const: General: no acute distress Nutritional Appearance: well nourished Orientation/consciousness: patient oriented x3 Limitations: no limitations HENMT: Head: normal to inspection Ears: external ears normal Face/Nose/Sinus: Normal external nose present Face and sinus: normal facial exam Mouth: Yes Normal oral and palatal mucosa present Throat: posterior oropharynx normal Eyes: Conjunctivae: conjunctivae normal Pupils: Equal, round and reactive pupils present EOM: EOMs intact bilaterally Direct Ophthalmoscopy: no photophobia Neck: Neck: normal visual inspection and no lymphadenopathy Chest: Chest palpation & inspection: normal inspection of the chest Resp:
--- NOTE | 2023-04-16 22:51 | ECG_ITS ---
Measurements Intervals [place] Rate: 79 P: 60 MO: 174 QRS: 59 QRSD: 97 T: 46 QT: 371 QTc: 427 Interpretive Statements SINUS RHYTHM WITH SINUS ARRHYTHMIA MINIMAL Q WAVES- INFERIOR LEADS BASELINE ARTIFACT- I, II, III, AVR, AVL, AVF BORDERLINE ECG COMPARED TO ECG 11/16/2022 02:18:20 NO SIGNIFICANT CHANGES Electronically Signed On 04-17-2023 8:18:38 LICENSE REGISTRATION EXAMINER by Jeffry Julian D.O.
[2023-04-16 23:08] LABS: Basophils Absolute Auto 0.05 K/mm3 (0.00-0.10); Basophils Percent Auto 0.7 % (0.0-1.0); Eosinophils Absolute Auto 0.13 K/mm3 (0.02-0.50); Eosinophils Percent Auto 1.8 % (1.0-6.0); Hematocrit 42.9 % (40.0-54.0); Hemoglobin 14.5 g/dL (14.0-18.0); Immature Granulocyte Absolute 0.02 K/mm3 (0.00-0.00); Immature Granulocyte Percent A 0.3 % (0.0-0.0); Lymphocytes Absolute Auto 2.48 K/mm3 (1.10-4.50); Lymphocytes Percent Auto 33.5 % (18.0-42.0); Mean Corpuscular HGB Conc 33.8 g/dL (32.0-36.0); Mean Corpuscular Hemoglobin 28.8 pg (27.0-31.0); Mean Corpuscular Volume 85.3 fL (78.0-102.0); Mean Platelet Volume 9.4 fl (8.7-11.0); Monocytes Absolute Auto 0.87 K/mm3 (0.10-0.90); Monocytes Percent Auto 11.8 % (2.0-11.0); Neutrophils Absolute Auto 3.9 K/mm3 (1.7-7.2); Neutrophils Percent Auto 51.9 % (50.0-70.0); Platelet Count Result 288 K/mm3 (150-420); Red Blood Count 5.03 M/mm3 (4.70-6.10); Red Cell Distribution Width 13.2 % (11.6-14.4); White Blood Count 7.4 K/mm3 (4.8-10.8)
[2023-04-16] MEDS: IPRATROPIUM 0.5 MG/ALBUTEROL SULFATE 2.5 MG AMPUL.NEB 3 ML INHALATION (23:22)
[2023-04-16] MEDS: KETOROLAC 30 MG/ML VIAL (*BKC) IM ×2 (23:22)
[2023-04-16 23:32] LABS: Lactic Acid Reflex 1.3 mmol/L (0.4-2.0)
[2023-04-16 23:39] LABS: Alanine Aminotransferase 43 U/L (16-63); Albumin Level 3.5 g/dL (3.4-5.0); Alkaline Phosphatase 103 U/L (46-116); Anion Gap 11 mmol/L (8-16); Aspartate Amino Transferase 25 U/L (15-37); Bilirubin,Total 0.3 mg/dL (0.00-1.00); Blood Urea Nitrogen 15 mg/dL (7-18); Calcium 8.2 mg/dL (8.5-10.1); Carbon Dioxide 24 mmol/L (21-32); Chloride 103 mmol/L (98-108); Estimated CRCL calculation 81 ml/min; Estimated Glomerular Filt Rate > 60; Glucose 103 mg/dL (70-99); Osmolality Calculated 286 mOsm/kg (285-295); Potassium 3.8 mmol/L (3.5-5.1); Sodium 138 mmol/L (136-145); Total Protein 6.9 g/dL (6.4-8.2); Troponin I 6.1 ng/L (0.00-60.4)
[2023-04-16 23:40] LABS: Influenza A QL RT-PCR Negative (Negative); Influenza B QL RT-PCR Negative (Negative); RSV RNA, RT-PCR Negative (Negative); SARS-CoV-2 RNA PCR Negative (Negative)
== END 2023-04-17 00:15 | disposition home or self-care (01) ==
PROVIDERS: Emergency Provider Internal Medicine Critical Care Medicine; PCP Family Medicine
DX: J06.9 Acute upper respiratory infection, unspecified (principal); J45.20 Mild intermittent asthma, uncomplicated; R51.9 Headache, unspecified; Z20.822 Contact with and (suspected) exposure to COVID-19
CPT/HCPCS: 36415; 71045; 80053; 83605; 84484; 85025; 87637; 93005; 96372; 99284; J1885

== ENCOUNTER 2023-04-30 23:16 | Emergency (ER) | payer OTHER, SELFPAY ==
[2023-04-30] VITALS (9 sets, daily range): BP systolic 131–158; BP diastolic 89–110; PULSE 75; RESP 18; TEMP 36.1; O2SAT 98–99
--- NOTE | 2023-04-30 23:24 | ED.GENADULT ---
HPI - General Adult General Chief complaint: Headache Stated complaint: upper respiratory Time Seen by Provider: 04/30/23 23:23 Source: patient Mode of arrival: ambulatory Limitations: no limitations History of Present Illness HPI narrative: 47-year-old male with a history of asthma was in the ER on 04/16/2023 for an upper respiratory tract infection and tested negative for influenza/ RSV /COVID. He presents to the ER with -- exposure to COVID. He had been staying with his father who tested positive for COVID. -- Headache and body ache. No fever or chills Onset (ago): day(s) ( 3 days) Severity: mild Pain Consistency: constant Relieving factors: none Exacerbating factors: none Associated symptoms: denies other symptoms Related Data Home Medications Medication Instructions Recorded Confirmed albuterol sulfate 90 mcg/actuation 2 puff inhalation PRN 04/16/23 04/16/23 aerosol inhaler Allergies Allergy/AdvReac Type Severity Reaction Status Date / Time haloperidol Allergy Unknown Anaphylaxis Verified 04/16/23 23:03 Review of Systems Review of Systems: All systems reviewed & are unremarkable except as noted in HPI and below Constitutional: Constitutional: Reports as per HPI, Reports no additional constitutional complaints and Reports weakness Eyes: Eyes: Reports as per HPI and Reports no additional eye complaints ENT: Reports system reviewed and no additional complaints, except as documented and Reports as per HPI Cardiovascular: Cardiovascular: Reports as per HPI and Reports no additional cardiovascular complaints Respiratory: Respiratory: Reports as per HPI and Reports no additional respiratory complaints Gastrointestinal: Gastrointestinal: Reports as per HPI and Reports no additional gastrointestinal complaints Genitourinary: Genitourinary: Reports no additional male genitourinary complaints and Reports as per HPI Musculoskeletal: Musculoskeletal: Reports as per HPI and Reports myalgias Integumentary/Breasts: Skin/Breast: Reports system reviewed and no additional complaints, except as docu Neurologic: Reports system reviewed and no additional complaints, except as documented and Reports headache(s) Psychiatric: Psychiatric: Reports no additional psychiatric complaints and Reports as per HPI Endocrine: Endocrine: Reports no additional endocrine complaints and Reports as per HPI Hematologic/Lymphatic: Hematologic/Lymphatic: Reports no additional hematologic/lymphatic complaints and Reports as per HPI Allergic/Immunologic: Allergic/Immunologic: Reports no additional allergic/immunologic complaints and Reports as per HPI [facility] Past Medical History Medical History Abdominal pain, RUQ Social History Social History Smoking status: Never smoker Second hand tobacco smoke exposure: Yes Alcohol intake: never Gender identity (if verbalized by the patient): Male Exam Narrative: patient is saturating 99% on room air with a respiratory rate of 18. Blood pressure is 158/101. Const: General: healthy appearing and no acute distress Nutritional Appearance: obese Orientation/consciousness: patient oriented x3 Limitations: no limitations HENMT: Head: normal to inspection Ears: external ears normal Face/Nose/Sinus: Normal external nose present Face and sinus: normal facial exam Mouth: Yes Normal oral and palatal mucosa present Throat: posterior oropharynx normal Eyes: Conjunctivae: conjunctivae normal Pupils: Equal, round and reactive pupils present EOM: EOMs intact bilaterally Direct Ophthalmoscopy: no photophobia Neck: Neck: normal visual inspection, no lymphadenopathy and no meningeal signs Chest: Chest palpation & inspection: normal inspection of the chest Resp: Effort & Inspection: normal respiratory effort Auscultation: clear to auscultation bilaterally Cardio: Rate: r
[2023-05-01] VITALS: O2SAT 98
[2023-05-01 00:01] VITALS: BP 152/92; O2SAT 99
[2023-05-01 00:15] VITALS: O2SAT 98
[2023-05-01 00:16] VITALS: BP 135/93; O2SAT 99
--- NOTE | 2023-05-01 00:25 | PC.NURSE ---
patient update provided, remain awaiting results of respiratory swab. lights dimmed for patient comfort. RN monitoring. vss.
[2023-05-01 00:32] LABS: SARS-CoV-2 RNA PCR Negative (Negative)
[2023-05-01 00:37] LABS: Influenza A QL RT-PCR Negative (Negative); Influenza B QL RT-PCR Negative (Negative); RSV RNA, RT-PCR Negative (Negative)
--- NOTE | 2023-05-01 00:48 | PC.NURSE ---
Dr. Che at patient bedside, reviewing labs and plan of care.
== END 2023-05-01 00:57 | disposition home or self-care (01) ==
PROVIDERS: Emergency Provider Internal Medicine Critical Care Medicine; PCP Family Medicine
DX: J06.9 Acute upper respiratory infection, unspecified (principal); J45.909 Unspecified asthma, uncomplicated; Z20.822 Contact with and (suspected) exposure to COVID-19
CPT/HCPCS: 87637; 99283

== ENCOUNTER 2023-05-08 00:13 | Emergency (ER) | payer OTHER, SELFPAY ==
--- NOTE | ~2023-05-08 | XR_ITS ---
EXAMINATION: XR chest 1V portable INDICATION: Shortness of breath TECHNIQUE: Portable AP chest at 0100 hours COMPARISON: 04/16/2023 FINDINGS: The lungs are free of acute opacities. No pleural effusion or pneumothorax. The cardiomedia stinal silhouette is normal. IMPRESSION: 1. No acute cardiopulmonary abnormality. Reviewed, dictated and finalized at location F.
[2023-05-08 00:16] VITALS: BP 143/91; PULSE 93; RESP 20; TEMP 36.7; O2SAT 99
[2023-05-08 00:30] VITALS: O2SAT 98
[2023-05-08 01:03] LABS: Basophils Percent Auto 0.7 % (0.2-1.2); Eosinophils Absolute Auto 0.2 K/mm3 (0-0.3); Eosinophils Percent Auto 2.7 % (0-4.4); Hematocrit 45.9 % (42.0-52.0); Hemoglobin 14.9 g/dL (14.0-18.0); Immature Granulocyte Absolute 0.01 K/mm3 (0.00-0.031); Immature Granulocyte Percent A 0.2 % (0-0.5); Lymphocytes Absolute Auto 1.54 K/mm3 (0.9-3.2); Lymphocytes Percent Auto 27.4 % (18.3-44.2); Mean Corpuscular HGB Conc 32.5 g/dl (32-36); Mean Corpuscular Hemoglobin 28.5 pg (26-34); Mean Corpuscular Volume 87.9 fl (80-100); Mean Platelet Volume 9.5 fl (7.4-10.4); Monocytes Percent Auto 18.5 % (2.6-8.5); Neutrophils Absolute Auto 2.8 K/mm3 (1.3-6.7); Neutrophils Percent Auto 50.5 % (45.5-73.1); Platelet Count Result 255 k/mm3 (150-375); Red Blood Count 5.22 M/mm3 (4.6-6.20); Red Cell Distribution Width 13.4 % (11.5-14.5); White Blood Count 5.6 K/mm3 (4.5-10.0)
[2023-05-08 01:15] LABS: Alanine Aminotransferase 35 U/L (6-50); Albumin Level 3.9 g/dL (3.5-5.1); Alkaline Phosphatase 91 U/L (38-126); Anion Gap 6 mmol/L (4-12); Aspartate Amino Transferase 34 U/L (17-59); Bilirubin,Total 0.4 mg/dL (0.2-1.3); Blood Urea Nitrogen 16 mg/dL (9-20); Calcium 9.2 mg/dL (8.4-10.2); Carbon Dioxide 21 mmol/L (22-30); Chloride 109 mmol/L (98-107); Estimated CRCL calculation 90 ml/min; Estimated Glomerular Filt Rate > 60; Glucose 109 mg/dL (65-110); Potassium 3.9 mmol/L (3.4-5.0); Sodium 136 mmol/L (137-145)
[2023-05-08 01:27] VITALS: BP 133/91; PULSE 103; RESP 16; O2SAT 96
--- NOTE | 2023-05-08 01:43 | ED.GENADULT ---
HPI - General Adult General Chief complaint: Upper Respiratory Infection Stated complaint: flu symptoms Time Seen by Provider: 05/08/23 01:38 History of Present Illness HPI narrative: Patient is a 47-year-old male who presents to the emergency department this evening complaining of flu-like symptoms. Patient states that his symptoms started 3 days ago and consist of a headache, shortness of breath, and a sore throat. Patient went to a different ER and was told that nothing is wrong with. Patient states that no blood work or imaging studies were performed and he was sent home on an antibiotic and pain pills. Patient states that his blood pressure has been elevated the past few days, and admits that he does not have any history of high blood pressure. He currently denies any chest pain, nausea, vomiting, abdominal pain and denies any fevers or chills at home. Patient denies any history of asthma. There are no other modifying, alleviating, or precipitating factors at this time. Related Data Home Medications Medication Instructions Recorded Confirmed albuterol sulfate 90 mcg/actuation 2 puff inhalation PRN 04/16/23 04/16/23 aerosol inhaler Allergies Allergy/AdvReac Type Severity Reaction Status Date / Time haloperidol Allergy Unknown Anaphylaxis Verified 05/08/23 00:25 Review of Systems Review of Systems: All systems are reviewed and are negative unless stated otherwise in the HPI. PMFSH Past Medical History Medical History Abdominal pain, RUQ Social History Social History Smoking status: Never smoker Second hand tobacco smoke exposure: Yes Alcohol intake: never Gender identity (if verbalized by the patient): Male Exam Narrative: General: Alert, awake, afebrile, in no acute distress. HEENT: PERRL, no rhinorrhea, no post nasal drip, oropharynx clear, no tonsillar exudates. Neck: Trachea midline, no JVD, no lymphadenopathy. Cardiovascular: Regular rate and rhythm, no murmurs, rubs or gallops, no peripheral edema. Respiratory: Clear to auscultation bilaterally, no tachypnea, no wheezing, no rhonchi, no rubs, no respiratory distress. Abdomen: Soft, nontender, nondistended, no rebound, no guarding, no peritoneal signs. Musculoskeletal: No joint swelling or deformity, normal muscle tone. Skin: No rashes or petechia, no signs of infection. Psychiatric: Alert and oriented, normal behavior and judgment for situation. Neurological: Alert and oriented to person, place, and time. Follows all commands. No focal deficits, speech is clear and fluent. Course Vital Signs Vital signs: Vital Signs Temperature 98.1 F 05/08/23 00:16 Pulse Rate 93 05/08/23 00:16 Respiratory Rate 20 05/08/23 00:16 Blood Pressure 143/91 H 05/08/23 00:16 Pulse Oximetry 99 05/08/23 00:16 Oxygen Delivery Room Air 05/08/23 00:16 Temperature 98.1 F 05/08/23 00:16 Pulse Rate 84 05/08/23 02:45 Respiratory Rate 15 05/08/23 02:45 Blood Pressure 124/97 H 05/08/23 02:45 Pulse Oximetry 98 05/08/23 02:45 Oxygen Delivery Room Air 05/08/23 00:30 Medical Decision Making [facility] Narrative Medical decision making narrative: The patient was evaluated by myself in the emergency department. History is obtained from patient who is an independent historian and physical exam was performed. External medical records were reviewed at this time. IV was established and pertinent tests were ordered. Laboratory results obtained revealing no acute process. Viral swabs were obtained and return back negative for COVID/RSV/influenza. Imaging studies obtained included CXR which was independently interpreted by me revealing no acute process, which is pending final radiology interpretation. Differential diagnosis considerations include acute viral syndrome including COVID/influenza/RSV, infectious process s
[2023-05-08 01:53] LABS: Strep Group A RT-PCR NOT DETECTED (Negative)
[2023-05-08 02:00] VITALS: BP 122/91; PULSE 101; RESP 20; O2SAT 97
[2023-05-08 02:05] LABS: Influenza A QL RT-PCR Negative (Negative); Influenza B QL RT-PCR Negative (Negative); RSV RNA, RT-PCR Negative (Negative); SARS-CoV-2 RNA PCR Negative (Negative)
[2023-05-08 02:45] VITALS: BP 124/97; PULSE 84; RESP 15; O2SAT 98
== END 2023-05-08 02:53 | disposition home or self-care (01) ==
PROVIDERS: Emergency Provider Emergency Medicine; PCP Family Medicine
DX: J06.9 Acute upper respiratory infection, unspecified (principal); Z20.822 Contact with and (suspected) exposure to COVID-19
CPT/HCPCS: 36415; 71045; 80053; 85025; 87637; 87651; 99283

== ENCOUNTER 2023-05-08 20:56 | Emergency (ER) | payer OTHER, SELFPAY ==
[2023-05-08] VITALS (8 sets, daily range): BP systolic 119–133; BP diastolic 85–93; PULSE 83–103; RESP 9–19; TEMP 37.4–37.9; O2SAT 95–98
--- NOTE | 2023-05-08 21:11 | ED.URI ---
HPI - URI/Sore Throat General Chief Complaint: Upper Respiratory Infection Stated Complaint: shortness of breath Time Seen by Provider: 05/08/23 20:59 patient here today with cough congestion does have history of asthma currently not wheezing states that he is mildly short of breath with currently no fever but does have fevers at home he states has been seen recently at another emergency department and prescribed Augmentin for respiratory infection. Source: patient Mode of arrival: ambulatory Limitations: no limitations History of Present Illness MD elicited complaint: fever, cough and nasal congestion Onset (ago): day(s) Related Data Home Medications Medication Instructions Recorded Confirmed amlodipine 5 mg tablet 5 mg PO DAILY 05/08/23 05/08/23 hydrocodone 5 mg-acetaminophen 325 1 tablet PO Q4-5H PRN Pain 05/08/23 05/08/23 mg tablet tramadol 50 mg tablet 50 mg PO Q4-5H PRN Pain 05/08/23 05/08/23 Allergies Allergy/AdvReac Type Severity Reaction Status Date / Time haloperidol Allergy Unknown Anaphylaxis Verified 05/08/23 21:03 Review of Systems Review of Systems: All systems reviewed & are unremarkable except as noted in HPI and below PMFSH Past Medical History Medical History Abdominal pain, RUQ Social History Social History Smoking status: Never smoker Second hand tobacco smoke exposure: Yes Alcohol intake: never Gender identity (if verbalized by the patient): Male Exam Const: General: healthy appearing Nutritional Appearance: well nourished Orientation/consciousness: patient oriented x3 Limitations: no limitations Eyes: Conjunctivae: conjunctivae normal Pupils: Equal, round and reactive pupils present Neck: Neck: normal visual inspection Chest: Chest palpation & inspection: normal inspection of the chest Resp: Effort & Inspection: normal respiratory effort Auscultation: clear to auscultation bilaterally Cardio: Rate: regular rate Rhythm: regular rhythm GI: GI Palp: Yes Soft to palpation Auscultation: normal bowel sounds Course Course Emergency Course: Patient O2 sats of 98% on room air has a low-grade temp currently on antibiotics will give patient a breathing treatment and a dose of Tylenol and advised patient to follow-up with his primary care physician and continue his current antibiotics. Vital Signs Vital signs: Vital Signs Temperature 37.4 C 05/08/23 20:59 Pulse Rate 89 05/08/23 20:59 Respiratory Rate 14 05/08/23 20:59 Blood Pressure 133/93 H 05/08/23 20:59 Pulse Oximetry 98 05/08/23 20:59 Oxygen Delivery Room Air 05/08/23 20:59 Temperature 37.4 C 05/08/23 20:59 Pulse Rate 89 05/08/23 20:59 Respiratory Rate 14 05/08/23 20:59 Blood Pressure 133/93 H 05/08/23 20:59 Pulse Oximetry 98 05/08/23 20:59 Oxygen Delivery Room Air 05/08/23 20:59 Critical Care Time Critical Care Time Critical Care Time: No Discharge Plan Discharge Clinical Impression: Upper respiratory infection Patient Disposition: Home, Self-Care Condition: Stable Instructions: Antibiotic Form, Acute Bronchitis (ED) Additional Instructions: Take medicine as prescribed and follow up with primary within the next 3 3 to 4 days for further evaluation and treatment. Prescriptions: New fluticasone propionate [Flonase Allergy Relief] 50 mcg/actuation spray,suspension 2 spray intranasal DAILY Qty: 16 0RF Rx Instructions: administer into each nostril ProAir RespiClick 90 mcg/actuation aerosol powdr breath activated 2 inh inhalation QID PRN (Reason: shortness of breath or wheezing) Qty: 1 0RF prednisone 20 mg tablet 20 mg PO DAILY 5 Days Qty: 5 0RF No Action hydrocodone-acetaminophen 5-325 mg tablet 1 tablet PO Q4-5H PRN (Reason: Pain) amlodipine 5 mg tablet 5 mg PO DAILY tramadol 50 mg tablet
[2023-05-08] MEDS: IPRATROPIUM 0.5 MG/ALBUTEROL SULFATE 2.5 MG AMPUL.NEB 3 ML INHALATION (21:24)
[2023-05-08] MEDS: ACETAMINOPHEN 325 MG TABLET 650 MG PO (21:24)
--- NOTE | 2023-05-08 21:53 | PC.NURSE ---
PT IS SITTING UP TALKING WITH DAUGHTER, NAD NOTED. PT IS REQUESTING OFF WORK NOTE. ERP IS NOTIFIED.
== END 2023-05-08 21:55 | disposition home or self-care (01) ==
PROVIDERS: Emergency Provider Emergency Medicine; PCP Family Medicine
DX: J06.9 Acute upper respiratory infection, unspecified (principal)
CPT/HCPCS: 99283; A9270

== ENCOUNTER 2023-06-18 00:47 | Emergency (ER) | payer OTHER, SELFPAY ==
[2023-06-18] VITALS (8 sets, daily range): BP systolic 131–141; BP diastolic 87–98; PULSE 78–81; RESP 20; TEMP 36.9; O2SAT 94–96
--- NOTE | ~2023-06-18 | CT_ITS ---
Non-contrast Head CT History: Dizziness Technique: Axial non-contrast imaging of the brain was performed. Dose reduction technique was used on this scan by utilizing automated exposure control and iterative reconstruction technique. The dose -length product (DLP) was 681.00 mGy-cm. Findings: There is no evidence of intracranial hemorrhage, mass lesion, or acute infarct. Brain par enchyma appears normal. The ventricles and subarachnoid spaces are normal in size. The calvarium ap pears normal. The visualized paranasal sinuses and mastoid air cells are clear. Impression: No significant abnormality seen. Reviewed, dictated and finalized at location . Impression: No significant abnormality seen.
--- NOTE | 2023-06-18 00:58 | ED.DIZZY ---
HPI - Dizziness General Chief Complaint: Dizziness Stated Complaint: Dizzy Time Seen by Provider: 06/18/23 00:58 Source: patient Mode of arrival: ambulatory Limitations: no limitations History of Present Illness HPI Narrative: patient is a 47-year-old male with dizziness this evening that came on while he was watching TV. He was laying there with his son and started to get dizzy. He has had benign paroxysmal vertigo in the past. MD elicited complaint: dizziness Pertinent past history: BPPV Onset (ago): hour(s) (3) Timing: sudden onset Severity: moderate Description: sense of movement and room spinning Context: change in medication ( Patient stopped his blood pressure medicine in the past and is not taking any medicine at this time) History of similar symptoms: Yes Exacerbating factors: movement/ambulation Relieving factors: remaining still Associated symptoms: nausea Related Data Allergies Allergy/AdvReac Type Severity Reaction Status Date / Time haloperidol Allergy Unknown Anaphylaxis Verified 05/08/23 21:03 Review of Systems Review of Systems: All systems reviewed & are unremarkable except as noted in HPI and below Constitutional: Constitutional: Reports no additional constitutional complaints Eyes: Eyes: Reports no additional eye complaints ENT: Reports system reviewed and no additional complaints, except as documented Cardiovascular: Cardiovascular: Reports no additional cardiovascular complaints Respiratory: Respiratory: Reports no additional respiratory complaints Gastrointestinal: Gastrointestinal: Reports no additional gastrointestinal complaints Genitourinary: Genitourinary: Reports no additional male genitourinary complaints Musculoskeletal: Musculoskeletal: Reports no additional musculoskeletal complaints Integumentary/Breasts: Skin/Breast: Reports system reviewed and no additional complaints, except as docu Neurologic: Reports system reviewed and no additional complaints, except as documented Psychiatric: Psychiatric: Reports no additional psychiatric complaints Endocrine: Endocrine: Reports no additional endocrine complaints Hematologic/Lymphatic: Hematologic/Lymphatic: Reports no additional hematologic/lymphatic complaints Allergic/Immunologic: Allergic/Immunologic: Reports no additional allergic/immunologic complaints PMFSH Past Medical History Medical History Abdominal pain, RUQ Social History Social History Smoking status: Never smoker Second hand tobacco smoke exposure: Yes Alcohol intake: never Gender identity (if verbalized by the patient): Male Exam Const: General: healthy appearing Nutritional Appearance: well nourished Orientation/consciousness: patient oriented x3 HENMT: Head: normal to inspection Ears: TM's normal bilaterally Face/Nose/Sinus: Normal external nose present Eyes: Conjunctivae: conjunctivae normal Pupils: Equal, round and reactive pupils present EOM: EOMs intact bilaterally Neck: Neck: normal visual inspection Chest: Chest palpation & inspection: normal inspection of the chest Resp: Effort & Inspection: normal respiratory effort and not labored Auscultation: clear to auscultation bilaterally Cardio: Rate: regular rate Rhythm: regular rhythm Heart sounds: no murmurs GI: Inspection: non-distended Auscultation: normal bowel sounds and bowel sounds present : General: Yes bladder normal to palpation Back/Spine/Pelvis: Back: no CVA tenderness Skin: General skin exam: normal color Rashes: no rashes Wounds: no wounds Neuro: General: patient oriented x3 Cranial nerves: Yes Nystagmus not present Speech: normal speech Extrem: General: normal to inspection Psych: Mental Status: mental status grossly normal Affect: normal affect Attitude: cooperative Course Vital Signs Vital signs: Vital Signs Temperature 36.9
--- NOTE | 2023-06-18 01:03 | ECG_ITS ---
SEE SCANNED COPY FOR CONFIRMED REPORT MTDD
[2023-06-18] MEDS: MECLIZINE HCL 25 MG TABLET PO (01:11)
[2023-06-18 01:20] LABS: Basophils Absolute Auto 0.04 K/mm3 (0.00-0.10); Basophils Percent Auto 0.7 % (0.0-1.0); Eosinophils Absolute Auto 0.13 K/mm3 (0.02-0.50); Eosinophils Percent Auto 2.3 % (1.0-6.0); Hematocrit 43.4 % (40.0-54.0); Hemoglobin 14.1 g/dL (14.0-18.0); Immature Granulocyte Absolute 0.02 K/mm3 (0.00-0.00); Immature Granulocyte Percent A 0.4 % (0.0-0.0); Lymphocytes Absolute Auto 1.96 K/mm3 (1.10-4.50); Lymphocytes Percent Auto 34.8 % (18.0-42.0); Mean Corpuscular HGB Conc 32.5 g/dL (32-36); Mean Corpuscular Hemoglobin 28.5 pg (27.0-31.0); Mean Corpuscular Volume 87.7 fL (78.0-102.0); Mean Platelet Volume 9.5 fl (8.7-11.0); Monocytes Percent Auto 8.9 % (2.0-11.0); Neutrophils Absolute Auto 2.99 K/mm3 (1.70-7.20); Neutrophils Percent Auto 52.9 % (50.0-70.0); Platelet Count Result 258 K/mm3 (150-420); Red Blood Count 4.95 M/mm3 (4.70-6.10); Red Cell Distribution Width 12.9 % (11.6-14.4); White Blood Count 5.6 K/mm3 (4.8-10.8)
[2023-06-18 01:39] LABS: Alanine Aminotransferase 40 U/L (16-63); Albumin Level 3.2 g/dL (3.4-5.0); Alkaline Phosphatase 86 U/L (46-116); Anion Gap 10 mmol/L (4-12); Aspartate Amino Transferase 22 U/L (15-37); Bilirubin,Total 0.2 mg/dL (0.00-1.00); Blood Urea Nitrogen 14 mg/dL (7-18); Calcium 8.5 mg/dL (8.5-10.1); Carbon Dioxide 26 mmol/L (21-32); Chloride 106 mmol/L (98-108); Estimated CRCL calculation 75 ml/min; Estimated Glomerular Filt Rate 59; Glucose 126 mg/dL (70-99); Osmolality Calculated 296 mOsm/kg (285-295); Sodium 142 mmol/L (136-145); Total Protein 6.5 g/dL (6.4-8.2)
[2023-06-18 01:41] LABS: Troponin I < 4.0 ng/L (0.00-60.4)
== END 2023-06-18 03:29 | disposition home or self-care (01) ==
PROVIDERS: Emergency Provider Emergency Medicine; PCP Family Medicine
DX: H81.10 Benign paroxysmal vertigo, unspecified ear (principal)
CPT/HCPCS: 36415; 70450; 80053; 84484; 85025; 93005; 99284; A9270

== ENCOUNTER 2023-08-04 14:50 | Emergency (ER) | payer OTHER, SELFPAY ==
[2023-08-04 14:55] VITALS: BP 130/91; PULSE 86; RESP 20; TEMP 36.3; O2SAT 95
--- NOTE | 2023-08-04 14:58 | ED.SKABFB ---
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 He complains of pain. This is a 2 cm erythematous rash around it. No itching. No shortness of breath or lightheadedness. complaint: rash Onset (ago): minute(s) ( 20 minutes ago) Tetanus up to date: yes Location: R foot ( anterior abdominal wall) Severity: mild Quality: aching Pain Consistency: constant Relieving factors: none Associated symptoms: denies other symptoms Treatments prior to arrival: none Related Data Allergies Allergy/AdvReac Type Severity Reaction Status Date / Time haloperidol Allergy Unknown Anaphylaxis Verified 08/04/23 15:01 Review of Systems Review of Systems: All systems reviewed & are unremarkable except as noted in HPI and below PMFSH Past Medical History Medical History Abdominal pain, RUQ Social History Social History Smoking status: Never smoker Second hand tobacco smoke exposure: Yes Alcohol intake: never Gender identity (if verbalized by the patient): Male Exam Const: General: healthy appearing and no acute distress Nutritional Appearance: well nourished Orientation/consciousness: patient oriented x3 Limitations: no limitations HENMT: Head: normal to inspection Ears: external ears normal Face/Nose/Sinus: Normal external nose present Face and sinus: normal facial exam Mouth: Yes Normal oral and palatal mucosa present Throat: posterior oropharynx normal Eyes: Conjunctivae: conjunctivae normal Pupils: Equal, round and reactive pupils present EOM: EOMs intact bilaterally Direct Ophthalmoscopy: no photophobia Neck: Neck: normal visual inspection, no lymphadenopathy and no meningeal signs Chest: Chest palpation & inspection: normal inspection of the chest Resp: Effort & Inspection: normal respiratory effort Auscultation: clear to auscultation bilaterally Cardio: Rate: regular rate Rhythm: regular rhythm GI: Auscultation: normal bowel sounds Other: no tenderness/rigidity / rebound. A wasp sting site surrounded by 3 cm of erythematous rash. : General: Yes no CVA tenderness Back/Spine/Pelvis: Back: no CVA tenderness Skin: General skin exam: normal color Other: 3 cm rash on the anterior abdominal wall. Neuro: General: patient oriented x3, moves all extremities, no meningeal signs and no focal motor deficits Cranial nerves: Yes Nystagmus not present Speech: normal speech Extrem: General: normal to inspection Psych: Mental Status: mental status grossly normal Affect: normal affect Attitude: cooperative Course Course Emergency Course: Wasps sting with erythematous rash which is tender history of allergic reaction to wasps sting Vital Signs Vital signs: Vital Signs Oxygen Delivery Room Air 08/04/23 14:50 Temperature 36.3 C L 08/04/23 14:55 Pulse Rate 86 08/04/23 14:55 Respiratory Rate 16 08/04/23 15:30 Blood Pressure 130/91 H 08/04/23 14:55 Pulse Oximetry 98 08/04/23 15:30 Oxygen Delivery Room Air 08/04/23 15:30 MDM - Skin/Abscess/Foreign Bdy MDM Narrative Medical decision making narrative: wasp sting allergic reaction Differential Diagnosis Differential diagnosis: Likely urticaria and contact dermatitis Medical Records Attestation: I reviewed the patient's medical records. Discharge Plan Discharge Clinical Impression: Allergic reaction Qualifiers: Encounter type: initial encounter Qualified Code(s): T78.40XA - Allergy, unspecified, initial encounter Wasp s
[2023-08-04 15:30] VITALS: RESP 16; O2SAT 98
[2023-08-04] MEDS: diphenhydrAMINE HCl CAP 25 MG CAPSULE PO (15:34)
[2023-08-04] MEDS: methylPREDNISolone SOD SUCC 40 MG VIAL IM (15:36)
--- NOTE | 2023-08-04 15:36 | PC.NURSE ---
LOCAL REACTION TO ABD IS IMPROVING. PT IS TALKING IN EXAM ROOM WITHOUT ANY DIFFICULTY. NAD NOTED. NO RESP DIFFICULTY IS NOTED. PT UP TO RR WITHOUT DIFFICULTY. WILL CONTINUE TO MONITOR.
[2023-08-04 16:00] VITALS: BP 138/72; PULSE 88; RESP 18; O2SAT 99
== END 2023-08-04 16:00 | disposition home or self-care (01) ==
PROVIDERS: Emergency Provider Internal Medicine Critical Care Medicine; PCP Family Medicine
DX: T63.461A Toxic effect of venom of wasps, accidental (unintentional), initial encounter (principal)
CPT/HCPCS: 96372; 99283; A9270; J2919

== ENCOUNTER 2023-08-05 06:25 | Emergency (ER) | payer OTHER, SELFPAY ==
[2023-08-05 06:24] VITALS: BP 129/77; PULSE 72; RESP 18; TEMP 36.8; O2SAT 98
[2023-08-05 06:29] VITALS: BP 129/77; PULSE 66; RESP 18; TEMP 36.8; O2SAT 97
--- NOTE | 2023-08-05 06:37 | ED.ABDPAIN ---
HPI - Abdominal Pain General Chief Complaint: Abdominal Pain <Mark Che MD - Last Filed: 08/05/23 06:51> Stated Complaint: abdominal pain <Mark Che MD - Last Filed: 08/05/23 06:51> Time Seen by Provider: 08/05/23 06:36 <Mark Che MD - Last Filed: 08/05/23 06:51> Source: patient <Mark Che MD - Last Filed: 08/05/23 06:51> Mode of arrival: ambulatory <Mark Che MD - Last Filed: 08/05/23 06:51> Limitations: no limitations <Mark Che MD - Last Filed: 08/05/23 06:51> History of Present Illness HPI narrative: 47-year-old male with a history of chronic bronchitis was seen in the ER yesterday afternoon for a wasp sting and received Solu-Medrol and Benadryl. Subsequently he developed -- epigastric pain Which started after he left the ER yesterday. . He had nausea without any vomiting. He also complained of diarrhea. -- chills. He denied fever <Mark Che MD - Last Filed: 08/05/23 06:51> MD elicited complaint: abdominal pain ( Epigastric pain) <Mark Che MD - Last Filed: 08/05/23 06:51> Pertinent past history: none <Mark Che MD - Last Filed: 08/05/23 06:51> Onset (ago): hour(s) ( 12 hours) <Mark Che MD - Last Filed: 08/05/23 06:51> Pain Consistency: constant <Mark Che MD - Last Filed: 08/05/23 06:51> Location: epigastric <Mark Che MD - Last Filed: 08/05/23 06:51> Quality: aching <Mark Che MD - Last Filed: 08/05/23 06:51> Radiation: none <Mark Che MD - Last Filed: 08/05/23 06:51> Migration to: no migration <Mark Che MD - Last Filed: 08/05/23 06:51> Exacerbating factors: nothing <Mark Che MD - Last Filed: 08/05/23 06:51> Relieving factors: nothing <Mark Che MD - Last Filed: 08/05/23 06:51> Associated symptoms: nausea and chills <Mark Che MD - Last Filed: 08/05/23 06:51> Related Data Allergies/Adverse Reactions: Allergies Allergy/AdvReac Type Severity Reaction Status Date / Time haloperidol Allergy Severe Anaphylaxis Verified 08/05/23 06:35 <Mark Che MD - Last Filed: 08/05/23 06:51> Review of Systems Review of Systems: All systems reviewed & are unremarkable except as noted in HPI and below <Mark Che MD - Last Filed: 08/05/23 06:51> Constitutional: Constitutional: Reports as per HPI and Reports no additional constitutional complaints <Mark Che MD - Last Filed: 08/05/23 06:51> Eyes: Eyes: Reports as per HPI and Reports no additional eye complaints <Mark Che MD - Last Filed: 08/05/23 06:51> ENT: Reports system reviewed and no additional complaints, except as documented and Reports as per HPI <Mark Che MD - Last Filed: 08/05/23 06:51> Cardiovascular: Cardiovascular: Reports as per HPI and Reports no additional cardiovascular complaints <Mark Che MD - Last Filed: 08/05/23 06:51> Respiratory: Respiratory: Reports as per HPI and Reports no additional respiratory complaints <Mark Che MD - Last Filed: 08/05/23 06:51> Gastrointestinal: Gastrointestinal: Reports as per HPI and Reports no additional gastrointestinal complaints <Mark Che MD - Last Filed: 08/05/23 06:51> Comments: epigastric pain with nausea <Mark Che MD - Last Filed: 08/05/23 06:51> Genitourinary: Genitourinary: Reports no additional male genitourinary complaints <Mark Che MD - Last Filed: 08/05/23 06:51> Musculoskeletal: Musculoskeletal: Reports no additional musculoskeletal complaints and Reports as per HPI <Mark Che MD - Last Filed: 08/05/23 06:51> Integumentary/Breasts: Skin/Breast: Reports system reviewed and no additional complaints, except as docu and Reports as per HPI <Mark Che MD - Last Filed: 08/05/23 06:51> Neurologic: Reports syst
--- NOTE | 2023-08-05 06:51 | ECG_ITS ---
Test Date: 2023-08-05 07:02:21 Measurements Intervals [place] Rate: 62 P: 64 IN: 164 QRS: 71 QRSD: 98 T: 68 QT: 391 QTc: 397 Interpretive Statements SINUS RHYTHM WITH SINUS ARRHYTHMIA No previous ECG available for comparison Electronically Signed On 08-05-2023 13:23:35 CDT by Brooks Freitas M.D.
[2023-08-05] MEDS: PANTOPRAZOLE SODIUM IV 40 MG VIAL IV PUSH (07:05)
[2023-08-05 07:09] LABS: Basophils Absolute Auto 0.01 K/mm3 (0.00-0.10); Basophils Percent Auto 0.1 % (0.0-1.0); Hematocrit 46.9 % (40.0-54.0); Hemoglobin 15.6 g/dL (14.0-18.0); Immature Granulocyte Absolute 0.04 K/mm3 (0.00-0.00); Immature Granulocyte Percent A 0.4 % (0.0-0.0); Lymphocytes Absolute Auto 1.38 K/mm3 (1.10-4.50); Lymphocytes Percent Auto 14.8 % (18.0-42.0); Mean Corpuscular HGB Conc 33.3 g/dL (32-36); Mean Corpuscular Hemoglobin 28.6 pg (27.0-31.0); Mean Corpuscular Volume 85.9 fL (78.0-102.0); Mean Platelet Volume 9.8 fl (8.7-11.0); Monocytes Absolute Auto 0.65 K/mm3 (0.10-0.90); Neutrophils Absolute Auto 7.26 K/mm3 (1.70-7.20); Neutrophils Percent Auto 77.7 % (50.0-70.0); Platelet Count Result 300 K/mm3 (150-420); Red Blood Count 5.46 M/mm3 (4.70-6.10); Red Cell Distribution Width 13.1 % (11.6-14.4); White Blood Count 9.3 K/mm3 (4.8-10.8)
[2023-08-05 07:21] LABS: INR 0.9; Prothrombin Time 10.3 Seconds (9.50-12.1)
[2023-08-05 07:25] LABS: Alanine Aminotransferase 40 U/L (16-63); Albumin Level 3.6 g/dL (3.4-5.0); Alkaline Phosphatase 88 U/L (46-116); Anion Gap 9 mmol/L (4-12); Aspartate Amino Transferase 21 U/L (15-37); Bilirubin,Total 0.3 mg/dL (0.00-1.00); Blood Urea Nitrogen 16 mg/dL (7-18); Calcium 8.8 mg/dL (8.5-10.1); Carbon Dioxide 24 mmol/L (21-32); Chloride 105 mmol/L (98-108); Estimated CRCL calculation 89 ml/min; Estimated Glomerular Filt Rate > 60; Glucose 129 mg/dL (70-99); Lactic Acid Reflex 1.7 mmol/L (0.4-2.0); Lipase 27 U/L (16-77); Osmolality Calculated 289 mOsm/kg (285-295); Sodium 138 mmol/L (136-145); Total Protein 7.5 g/dL (6.4-8.2)
[2023-08-05 07:26] LABS: Troponin I < 4.0 ng/L (0.00-60.4)
[2023-08-05] MEDS: MAG HYDROX/ALUMINUM HYD/SIMETH 30 ML, PHENobarb/HYOSCY/ATROPINE/SCOP 32.4 MG, LIDOCAINE... PO (07:34)
[2023-08-05 07:50] LABS: Appearance Urine Clear (Clear); Bilirubin Urine Negative (Negative); Blood Urine Negative (Negative); Color Urine Yellow (Yellow); Glucose Urine UA Negative (Negative); Ketones Urine Negative (Negative); Leukocyte Esterase Ur Negative LEU/UL (Negative); Nitrate Urine Negative (Negative); Protein Urine Trace (Negative); Specific Grav Ur >= 1.030 (1.010-1.020); Urobilinogen Urine 0.2 mg/dL (0.2-1.0)
[2023-08-05 07:55] LABS: Add Urine Microscopic? YES; Bacteria Urine Rare /hpf; Mucus Urine Moderate /lpf; RBC Urine None seen /hpf (0-2); WBC Urine None seen /hpf (0-3)
[2023-08-05 08:19] VITALS: BP 139/79; PULSE 60; RESP 18; TEMP 36.3; O2SAT 94
== END 2023-08-05 08:45 | disposition home or self-care (01) ==
PROVIDERS: Internal Medicine Critical Care Medicine; Emergency Provider Emergency Medicine; PCP Family Medicine
DX: K21.9 Gastro-esophageal reflux disease without esophagitis (principal)
CPT/HCPCS: 36415; 80053; 81001; 83605; 83690; 84484; 85025; 85610; 93005; 96374; 99284; A9270; C9113

== ENCOUNTER 2023-09-21 20:02 | Emergency (ER) | payer OTHER, SELFPAY ==
[2023-09-21] VITALS (7 sets, daily range): BP systolic 118–136; BP diastolic 87–95; PULSE 73–92; RESP 18; TEMP 36.4; O2SAT 93–96
--- NOTE | 2023-09-21 20:10 | ED.ABDPAIN ---
HPI - Abdominal Pain General Chief Complaint: Abdominal Pain Stated Complaint: Upper Abd Pain Time Seen by Provider: 09/21/23 20:10 Source: patient Mode of arrival: ambulatory Limitations: no limitations History of Present Illness HPI narrative: 47 year old male presents to the Emergency Department complaining of abdominal pain. Onset 3 pm States has been constant. No vomiting. Some diarrhea. Patient indicates epigastric /RUQ region. History of GERD. States feel different. MD elicited complaint: abdominal pain Pertinent past history: other (gerd) Onset (ago): hour(s) (5) Pain Consistency: constant Location: epigastric and RUQ Severity: moderate Radiation: none Exacerbating factors: nothing Relieving factors: nothing Related Data Allergies Allergy/AdvReac Type Severity Reaction Status Date / Time haloperidol Allergy Severe Anaphylaxis Verified 08/05/23 06:35 Review of Systems Review of Systems: All systems reviewed & are unremarkable except as noted in HPI and below Constitutional: Constitutional: Reports as per HPI, Denies chills and Denies fever(s) Eyes: Eyes: Reports as per HPI ENT: Reports system reviewed and no additional complaints, except as documented Cardiovascular: Cardiovascular: Reports as per HPI and Denies chest pain Respiratory: Respiratory: Reports as per HPI, Denies cough and Denies dyspnea Gastrointestinal: Gastrointestinal: Reports as per HPI, Reports abdominal pain, Denies constipation, Reports diarrhea, Denies nausea and Denies vomiting Genitourinary: Genitourinary: Reports no additional male genitourinary complaints Musculoskeletal: Musculoskeletal: Reports no additional musculoskeletal complaints and Denies back pain Integumentary/Breasts: Skin/Breast: Reports system reviewed and no additional complaints, except as docu Neurologic: Reports system reviewed and no additional complaints, except as documented [facility] [place] Past Medical History Medical History Abdominal pain, RUQ Social History Social History Smoking status: Never smoker Second hand tobacco smoke exposure: Yes Alcohol intake: never Gender identity (if verbalized by the patient): Male Exam Const: General: healthy appearing and no acute distress Nutritional Appearance: obese Orientation/consciousness: patient oriented x3 Limitations: no limitations HENMT: Head: normal to inspection Ears: external ears normal Face/Nose/Sinus: Normal external nose present Face and sinus: normal facial exam Mouth: Yes Normal oral and palatal mucosa present Eyes: Pupils: Equal, round and reactive pupils present EOM: EOMs intact bilaterally Direct Ophthalmoscopy: no photophobia Neck: Neck: normal visual inspection Chest: Chest palpation & inspection: normal inspection of the chest and no tenderness Resp: Effort & Inspection: normal respiratory effort Auscultation: clear to auscultation bilaterally Cardio: Rate: regular rate Rhythm: regular rhythm GI: Inspection: non-distended GI Palp: Yes Soft to palpation, Yes Tenderness to palpation present (GI) (RUQ), No Guarding due to palpation present (GI), No Rigid due to palpation, No Palpable mass present and No Rebound tenderness present Auscultation: normal bowel sounds : General: Yes bladder normal to palpation Back/Spine/Pelvis: Back: no CVA tenderness Skin: General skin exam: normal color Rashes: no rashes Neuro: General: patient oriented x3 Speech: normal speech Gait exam (Neuro): Normal gait present Other: grossly normal Extrem: General: normal to inspection and no clubbing, cyanosis or edema Psych: Mental Status: mental status grossly normal Course Course Emergency Course: 47 y/o male presents to the ED c/o abdominal pain RUQ. Onset 3 pm. Constant. No N/V. Some diarrhea. PE: tender RUQ CBC: H/H 14.6/43.3, Plt 268; wbc 6.7 with 55 S, 3
--- NOTE | 2023-09-21 20:11 | PC.NURSE ---
ER provider at the bedside
--- NOTE | 2023-09-21 20:20 | PC.NURSE ---
patient was notified that a urine sample is needed. urinal was given.
[2023-09-21] MEDS: MAG HYDROX/ALUMINUM HYD/SIMETH 30 ML, PHENobarb/HYOSCY/ATROPINE/SCOP 32.4 MG, LIDOCAINE... PO (20:26)
--- NOTE | 2023-09-21 20:29 | PC.NURSE ---
urine obtained and taken down to lab. Marilee was called and notified in lab
[2023-09-21 20:31] LABS: Basophils Absolute Auto 0.05 K/mm3 (0.00-0.10); Basophils Percent Auto 0.7 % (0.0-1.0); Eosinophils Absolute Auto 0.21 K/mm3 (0.02-0.50); Eosinophils Percent Auto 3.1 % (1.0-6.0); Hematocrit 43.3 % (40.0-54.0); Hemoglobin 14.6 g/dL (14.0-18.0); Immature Granulocyte Absolute 0.03 K/mm3 (0.00-0.00); Immature Granulocyte Percent A 0.4 % (0.0-0.0); Lymphocytes Absolute Auto 2.06 K/mm3 (1.10-4.50); Lymphocytes Percent Auto 30.7 % (18.0-42.0); Mean Corpuscular HGB Conc 33.7 g/dL (32-36); Mean Corpuscular Hemoglobin 29.1 pg (27.0-31.0); Mean Corpuscular Volume 86.3 fL (78.0-102.0); Mean Platelet Volume 9.6 fl (8.7-11.0); Monocytes Absolute Auto 0.66 K/mm3 (0.10-0.90); Monocytes Percent Auto 9.8 % (2.0-11.0); Neutrophils Absolute Auto 3.71 K/mm3 (1.70-7.20); Neutrophils Percent Auto 55.3 % (50.0-70.0); Platelet Count Result 268 K/mm3 (150-420); Red Blood Count 5.02 M/mm3 (4.70-6.10); Red Cell Distribution Width 13.5 % (11.6-14.4); White Blood Count 6.7 K/mm3 (4.8-10.8)
[2023-09-21 20:32] LABS: Add Urine Microscopic? NO; Appearance Urine Clear (Clear); Bilirubin Urine Negative (Negative); Blood Urine Negative (Negative); Ketones Urine Negative (Negative); Leukocyte Esterase Ur Negative (Negative); Nitrate Urine Negative (Negative); Protein Urine Negative (Negative); Urobilinogen Urine 0.2 mg/dL (0.2-1.0)
--- NOTE | 2023-09-21 20:33 | PC.NURSE ---
family member at the bedside
[2023-09-21 20:41] LABS: Alanine Aminotransferase 31 U/L (16-63); Albumin Level 3.4 g/dL (3.4-5.0); Alkaline Phosphatase 98 U/L (46-116); Amylase 56 U/L (25-115); Anion Gap 11 mmol/L (4-12); Aspartate Amino Transferase 21 U/L (15-37); Bilirubin,Total 0.2 mg/dL (0.00-1.00); Blood Urea Nitrogen 15 mg/dL (7-18); Calcium 8.8 mg/dL (8.5-10.1); Carbon Dioxide 25 mmol/L (21-32); Chloride 106 mmol/L (98-108); Estimated CRCL calculation 75 ml/min; Estimated Glomerular Filt Rate 58; Glucose 112 mg/dL (70-99); Lipase 44 U/L (16-77); Osmolality Calculated 295 mOsm/kg (285-295); Potassium 3.9 mmol/L (3.5-5.1); Sodium 142 mmol/L (136-145); Total Protein 6.9 g/dL (6.4-8.2)
[2023-09-21 20:43] LABS: Lactic Acid Reflex 1.3 mmol/L (0.4-2.0)
[2023-09-21 20:43] LABS: Color Urine Yellow (Yellow)
[2023-09-21 20:45] LABS: Glucose Urine UA Negative (Negative); Specific Grav Ur >= 1.030 (1.010-1.020)
--- NOTE | 2023-09-21 20:48 | PC.NURSE ---
Dr Chacon notified that results have posted in computer
--- NOTE | 2023-09-21 20:54 | PC.NURSE ---
patient reports that the gi cocktail is not helping his pain. Dr Chacon was notified.
--- NOTE | 2023-09-21 20:55 | PC.NURSE ---
Dr Chacon at the bedside
[2023-09-21] MEDS: ONDANSETRON INJ 4 MG/2 ML VIAL IV PUSH (21:08)
[2023-09-21] MEDS: HYDROmorphone HCL INJ (*CRX) 2 MG/ML VIAL 1 MG IV PUSH (21:08)
--- NOTE | 2023-09-21 21:22 | PC.NURSE ---
resting on stretcher with family member at his side. call light in reach
== END 2023-09-21 21:38 | disposition home or self-care (01) ==
PROVIDERS: Emergency Provider Emergency Medicine; PCP Family Medicine
DX: K80.20 Calculus of gallbladder without cholecystitis without obstruction (principal)
CPT/HCPCS: 36415; 80053; 81003; 82150; 83605; 83690; 85025; 96374; 96375; 99284; A9270; J1170; J2405

== ENCOUNTER 2023-09-24 09:59 | Outpatient (CLI) | payer OTHER, SELFPAY ==
--- NOTE | ~2023-09-24 | US_ITS ---
EXAMINATION: US abdomen complete DATE: 09/24/2023 10:35 INDICATION: Epigastric pain TECHNIQUE: Multiple grayscale and Doppler ultrasound images of the abdomen were obtained. COMPARISON: 03/05/2023 and 11/16/2022 FINDINGS: The visualized pancreatic body is normal in appearance. The pancreatic head and tail are not visuali zed. Liver has normal echogenicity and contour, with a smooth surface. No liver lesion identified. No intrahepatic biliary duct dilation suspected. Portal venous flow was seen in the hepatopetal, normal direction and has normal Doppler waveform. The gallbladder is normal in appearance. There is no cho lelithiasis. The common bile duct measures 3 mm, which is normal. Sonographic Danielle sign was reporte d as negative by the car cooper. There is normal renal contour and echogenicity bilaterally. The rig ht kidney measures 9.3 x 5.3 x 5.6 cm and the left 10.1 x 4.8 x 6.2 cm. There are no focal renal les ions identified. There is no hydronephrosis. Spleen measures 11.1 cm maximal length which is normal. A few echogenic foci in the spleen corresponding to calcified granulomata as seen on prior CT. The a eulalia and inferior vena cava are clearly visualized likely due to patient body habitus. IMPRESSION: 1. A few small calcified splenic granulomata. Otherwise unremarkable abdominal ultrasound. Reviewed, dictated and finalized at location A.
== END 2023-09-24 10:00 | disposition home or self-care (01) ==
LOC: CHSIMG 10:00
PROVIDERS: PCP Family Medicine; Visit Provider Family Medicine
DX: R10.9 Unspecified abdominal pain (principal); L92.8 Other granulomatous disorders of the skin and subcutaneous tissue
CPT/HCPCS: 76700

== ENCOUNTER 2023-11-02 22:27 | Emergency (ER) | payer OTHER, SELFPAY ==
--- NOTE | 2023-11-02 22:32 | ECG_ITS ---
Test Date: 2023-11-02 22:47:54 Measurements Intervals [place] Rate: 83 P: 59 OK: 174 QRS: 48 QRSD: 97 T: 48 QT: 360 QTc: 425 Interpretive Statements SINUS RHYTHM POSSIBLE INFERIOR MYOCARDIAL INFARCTION , OF INDETERMINATE AGE BASELINE ARTIFACT- I, II, III, AVR, AVL, AVF, V1, V4-V6 ABNORMAL ECG Compared to ECG 08/05/2023 07:02:21 NO SIGNIFICANT CHANGE Electronically Signed On 11-03-2023 06:34:07 CDT by Jeffry Julian D.O.
[2023-11-02 22:34] VITALS: BP 142/97; PULSE 88; RESP 22; TEMP 36.4; O2SAT 97
[2023-11-02 22:38] VITALS: PULSE 84; RESP 18; O2SAT 96
[2023-11-02] MEDS: IPRATROPIUM 0.5 MG/ALBUTEROL SULFATE 2.5 MG AMPUL.NEB 3 ML INHALATION (22:38)
[2023-11-02 22:50] VITALS: PULSE 80; RESP 18; O2SAT 97
--- NOTE | 2023-11-02 23:17 | ED.GENADULT ---
HPI - General Adult General Chief complaint: Shortness of Breath/Dyspnea Stated complaint: Needs breathing treatment Time Seen by Provider: 11/02/23 22:32 Source: patient Mode of arrival: ambulatory Limitations: no limitations History of Present Illness HPI narrative: 47-year-old asthmatic that a week ago he started with cough runny nose headache felt tired all the time and achy he has gotten better and was doing fine and then went to sleep and woke up this night short of breath he took his inhaler without much relief so came to the emergency room. Denies any chest pain or sputum production or wheezing. Denies any nausea or fever he said his chest felt tight until he got his breathing treatment here lasted for about 10-15 minutes. No history of heart disease. Is not a smoker. 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 Denies any problems eating or drinking or voiding. He says his stools have been a little bit runny. Denies any fever he has had a rash on his left chest but he put some medicine on and going away. Denies any swelling lumps or bumps weakness or numbness dizziness or lightheadedness bleeding or bruising or any other complaints. He has no other medical problems besides asthma and just uses an albuterol rescue inhaler. He has had a steroid inhaler but he has used that in months. Denies any other complaints. Related Data Home Medications Medication Instructions Recorded Confirmed albuterol sulfate 90 mcg/actuation 2 puff inhalation Q4-6H PRN 11/02/23 11/02/23 aerosol inhaler Shortness Of Breath Or Wheezing Allergies Allergy/AdvReac Type Severity Reaction Status Date / Time haloperidol Allergy Severe Anaphylaxis Verified 08/05/23 06:35 Review of Systems Review of Systems: White male patient with no apparent distress.? Head normocephalic, atraumatic.? Eyes conjunctiva pink sclera nonicteric.? Extraocular movements are intact.? Ears externally normal.? Oropharynx is clear with moist mucous membranes without exudates.? Neck is supple nontender no lymphadenopathy.? Back is nontender.? Lungs are clear patient has fair air exchange. Heart is regular rate and rhythm without murmurs gallops or rubs.? Chest wall nontender. Abdomen is soft and nontender no hepatosplenomegaly or masses no CVA tenderness no abdominal bruits.? Extremities no cyanosis clubbing or edema.? Skin is warm and dry without rashes or lesions.? Neurological patient is alert and oriented x4.? Motor and sensory grossly intact.? Gait is normal. All systems reviewed & are unremarkable except as noted in HPI and below PMFSH Past Medical History Medical History Abdominal pain, RUQ Social History Social History Smoking status: Never smoker Second hand tobacco smoke exposure: Yes Alcohol intake: never Gender identity (if verbalized by the patient): Male Course Vital Signs Vital signs: Vital Signs Temperature 36.4 C 11/02/23 22:34 Pulse Rate 88 11/02/23 22:34 Respiratory Rate 22 H 11/02/23 22:34 Blood Pressure 142/97 H 11/02/23 22:34 Pulse Oximetry 97 11/02/23 22:34 Oxygen Delivery Room Air 11/02/23 22:34 Temperature 36.4 C 11/02/23 22:34 Pulse Rate 80 11/02/23 22:50 Respiratory Rate 18 11/02/23 22:50 Blood Pressure 142/97 H 11/02/23 22:34 Pulse Oximetry 97 11/02/23 22:50 Oxygen Delivery Room Air 11/02/23 22:34 Oxygen Flow Rate 0 11/02/23 22:50 Medical Decision Making [facility] Narrative Medical decision making narrative: ? Patient placed in room: 2 ? History and physical was performed. patient was given a DuoNeb treatment this resolved his difficulty breathing is tightness went away he felt back to normal. He brought his albuterol inhaler and his technique was observed. his technique need much improvement but after teaching him he demonstrated good t
[2023-11-02 23:26] VITALS: BP 126/79; PULSE 78; RESP 18; TEMP 36.6; O2SAT 95
== END 2023-11-02 23:26 | disposition home or self-care (01) ==
PROVIDERS: Emergency Provider Emergency Medicine; PCP Family Medicine
DX: J45.901 Unspecified asthma with (acute) exacerbation (principal)
CPT/HCPCS: 93005; 94640; 99283

== ENCOUNTER 2023-11-12 12:01 | Emergency (ER) | payer OTHER, SELFPAY ==
[2023-11-12 12:01] VITALS: BP 128/102; PULSE 97; RESP 20; TEMP 36.5; O2SAT 98
--- NOTE | 2023-11-12 12:06 | ED.URI ---
HPI - URI/Sore Throat General Chief Complaint: Upper Respiratory Infection Stated Complaint: sore throat, cough Source: patient Mode of arrival: ambulatory Limitations: no limitations History of Present Illness HPI Narrative: 47-year-old male with a history of asthma presents to the ED with a one-day history of -- sore throat -- left ear pain. No discharge. No fever or chills no cough or sputum production MD elicited complaint: sore throat Pertinent past history: asthma Onset (ago): day(s) ( 1 day) Severity: severe Exacerbating factors: nothing Relieving factors: nothing Associated symptoms: sore throat and ear pain Treatments prior to arrival: none Related Data Home Medications Medication Instructions Recorded Confirmed albuterol sulfate 90 mcg/actuation 2 puff inhalation Q4-6H PRN 11/02/23 11/02/23 aerosol inhaler Shortness Of Breath Or Wheezing Allergies Allergy/AdvReac Type Severity Reaction Status Date / Time haloperidol Allergy Severe Anaphylaxis Verified 08/05/23 06:35 Review of Systems Review of Systems: All systems reviewed & are unremarkable except as noted in HPI and below Constitutional: Constitutional: Reports as per HPI and Reports no additional constitutional complaints Eyes: Eyes: Reports as per HPI and Reports no additional eye complaints ENT: Reports system reviewed and no additional complaints, except as documented, Reports as per HPI and Reports sore throat Cardiovascular: Cardiovascular: Reports as per HPI and Reports no additional cardiovascular complaints Respiratory: Respiratory: Reports as per HPI and Reports no additional respiratory complaints Gastrointestinal: Gastrointestinal: Reports as per HPI and Reports no additional gastrointestinal complaints Genitourinary: Genitourinary: Reports no additional male genitourinary complaints and Reports as per HPI Musculoskeletal: Musculoskeletal: Reports no additional musculoskeletal complaints and Reports as per HPI Integumentary/Breasts: Skin/Breast: Reports system reviewed and no additional complaints, except as docu and Reports as per HPI Neurologic: Reports system reviewed and no additional complaints, except as documented and Reports as per HPI Psychiatric: Psychiatric: Reports no additional psychiatric complaints and Reports as per HPI Endocrine: Endocrine: Reports no additional endocrine complaints and Reports as per HPI Hematologic/Lymphatic: Hematologic/Lymphatic: Reports no additional hematologic/lymphatic complaints and Reports as per HPI Allergic/Immunologic: Allergic/Immunologic: Reports no additional allergic/immunologic complaints and Reports as per HPI [facility] Past Medical History Medical History Abdominal pain, RUQ Social History Social History Smoking status: Never smoker Second hand tobacco smoke exposure: Yes Alcohol intake: never Gender identity (if verbalized by the patient): Male Exam Narrative: afebrile. Blood pressure 136/88 Const: General: healthy appearing and no acute distress Nutritional Appearance: well nourished Orientation/consciousness: patient oriented x3 Limitations: no limitations HENMT: Head: normal to inspection Ears: external ears normal and TM's normal bilaterally ( left tympanic membrane is erythematous with bulging) Face/Nose/Sinus: Normal external nose present Face and sinus: normal facial exam Mouth: Yes Normal oral and palatal mucosa present Throat: posterior oropharynx normal ( pharyngeal erythema) Eyes: Conjunctivae: conjunctivae normal Pupils: Equal, round and reactive pupils present EOM: EOMs intact bilaterally Direct Ophthalmoscopy: no photophobia Neck: Neck: normal visual inspection, no lymphadenopathy and no meningeal signs Chest: Chest palpation & inspection: normal inspection of the chest Resp: Effort & Inspection: normal respi
[2023-11-12 12:13] VITALS: BP 136/88
[2023-11-12 12:34] LABS: Strep Group A RT-PCR NOT DETECTED (Negative)
[2023-11-12] MEDS: IBUPROFEN 400 MG TABLET PO (12:41)
[2023-11-12 12:47] LABS: Influenza A QL RT-PCR Negative (Negative); Influenza B QL RT-PCR Negative (Negative); SARS-CoV-2 RNA PCR Negative (Negative)
[2023-11-12 12:48] LABS: RSV RNA, RT-PCR Negative (Negative)
== END 2023-11-12 13:05 | disposition home or self-care (01) ==
PROVIDERS: Emergency Provider Internal Medicine Critical Care Medicine; PCP Family Medicine
DX: H66.90 Otitis media, unspecified, unspecified ear (principal); Z20.822 Contact with and (suspected) exposure to COVID-19
CPT/HCPCS: 87637; 87651; 99283; A9270

== ENCOUNTER 2024-01-13 18:08 | Emergency (ER) | payer OTHER, SELFPAY ==
[2024-01-13 18:08] VITALS: BP 134/100; PULSE 95; RESP 16; TEMP 36.4; O2SAT 98
--- NOTE | 2024-01-13 20:25 | ED.UPPEXIN ---
HPI - Extremity Injury (Upper) General Chief Complaint: Extremity Injury, Upper Stated Complaint: fall; left wrist pain and left elbow pain Related Data Home Medications Medication Instructions Recorded Confirmed albuterol sulfate 90 mcg/actuation 2 puff inhalation Q4-6H PRN 11/02/23 11/02/23 aerosol inhaler Shortness Of Breath Or Wheezing Allergies Allergy/AdvReac Type Severity Reaction Status Date / Time haloperidol Allergy Severe Anaphylaxis Verified 08/05/23 06:35 PMFSH Past Medical History Medical History Abdominal pain, RUQ Social History Social History Smoking status: Never smoker Second hand tobacco smoke exposure: Yes Alcohol intake: never Gender identity (if verbalized by the patient): Male Course Vital Signs Vital signs: Vital Signs Temperature 36.4 C 01/13/24 18:08 Pulse Rate 95 01/13/24 18:08 Respiratory Rate 16 01/13/24 18:08 Blood Pressure 134/100 H 01/13/24 18:08 Pulse Oximetry 98 01/13/24 18:08 Oxygen Delivery Room Air 01/13/24 18:08 Temperature 36.4 C 01/13/24 18:08 Pulse Rate 95 01/13/24 18:08 Respiratory Rate 16 01/13/24 18:08 Blood Pressure 134/100 H 01/13/24 18:08 Pulse Oximetry 98 01/13/24 18:08 Oxygen Delivery Room Air 01/13/24 18:08 Discharge Plan Discharge Clinical Impression: Injury of lower leg Patient Disposition: Left Without Being Seen Prescriptions: No Action albuterol sulfate 90 mcg/actuation HFA aerosol inhaler 2 puff INHALATION Q4-6H PRN (Reason: Shortness Of Breath Or Wheezing) amoxicillin-pot clavulanate 875-125 mg tablet 1 tablet PO Q12H Qty: 14 0RF loratadine [Claritin] 10 mg tablet 10 mg PO DAILY Qty: 14 0RF Follow-up/Referrals: Gino Medel MD [Primary Care Provider] - Time of Disposition: 20:25
== END 2024-01-13 19:15 | disposition left against medical advice (07) ==
LOC: CHSED 20:34
PROVIDERS: Emergency Provider Emergency Medicine; PCP Family Medicine
DX: S89.92XA Unspecified injury of left lower leg, initial encounter (principal); W19.XXXA Unspecified fall, initial encounter
CPT/HCPCS: 99199

== ENCOUNTER 2024-01-29 09:35 | Emergency (ER) | payer OTHER, SELFPAY ==
--- NOTE | ~2024-01-29 | XR_ITS ---
EXAMINATION: XR chest 2V 01/29/2024 10:16 INDICATION: Shortness of breath, productive cough PROCEDURE: 2 view chest COMPARISON: Comparison to multiple prior studies sequentially, with oldest reviewed study dated 09/2022. FINDINGS: The lungs are clear. The cardiomediastinal silhouette is within normal limits. There are no pleural effusions. There is no pneumothorax suspected. There are scattered chronic calcified gra nulomas bilaterally. IMPRESSION: 1: NO ACUTE CARDIOPULMONARY DISEASE. Reviewed, dictated and finalized at location B. STENCILER
[2024-01-29 09:45] VITALS: BP 142/94; PULSE 97; RESP 16; TEMP 37.1; O2SAT 98
--- NOTE | 2024-01-29 09:45 | ECG_ITS ---
Test Date: 2024-01-29 09:59:30 Measurements Intervals [place] Rate: 94 P: 50 SC: 170 QRS: 49 QRSD: 98 T: 40 QT: 343 QTc: 429 Interpretive Statements SINUS RHYTHM Compared to ECG 11/02/2023 22:47:54 NO SIGNIFICANT CHANGES Electronically Signed On 01-30-2024 11:51:14 ASSOCIATE PROFESSOR OF FORESTRY by Brooks Freitas M.D.
[2024-01-29 10:15] LABS: Basophils Percent Auto 0.5 % (0.2-1.2); Eosinophils Absolute Auto 0.1 K/mm3 (0-0.3); Eosinophils Percent Auto 1.4 % (0-4.4); Hematocrit 44.5 % (42.0-52.0); Hemoglobin 14.9 g/dL (14.0-18.0); Immature Granulocyte Absolute 0.05 K/mm3 (0.00-0.031); Immature Granulocyte Percent A 0.6 % (0-0.5); Lymphocytes Absolute Auto 0.66 K/mm3 (0.9-3.2); Lymphocytes Percent Auto 8.5 % (18.3-44.2); Mean Corpuscular HGB Conc 33.5 g/dl (32-36); Mean Corpuscular Hemoglobin 28.8 pg (26-34); Mean Corpuscular Volume 86.1 fl (80-100); Mean Platelet Volume 9.6 fl (7.4-10.4); Monocytes Absolute Auto 0.6 K/mm3 (0.1-0.6); Monocytes Percent Auto 7.4 % (2.6-8.5); Neutrophils Absolute Auto 6.4 K/mm3 (1.3-6.7); Neutrophils Percent Auto 81.6 % (45.5-73.1); Platelet Count Result 266 k/mm3 (150-375); Red Blood Count 5.17 M/mm3 (4.6-6.20); Red Cell Distribution Width 13.2 % (11.5-14.5); White Blood Count 7.8 K/mm3 (4.5-10.0)
[2024-01-29 10:18] VITALS: PULSE 98; RESP 22; O2SAT 100
[2024-01-29 10:29] LABS: Alanine Aminotransferase 39 U/L (6-50); Albumin Level 4.2 g/dL (3.5-5.1); Alkaline Phosphatase 96 U/L (38-126); Anion Gap 5 mmol/L (4-12); Aspartate Amino Transferase 37 U/L (17-59); Bilirubin,Total 0.5 mg/dL (0.2-1.3); Blood Urea Nitrogen 19 mg/dL (9-20); Calcium 8.9 mg/dL (8.4-10.2); Carbon Dioxide 25 mmol/L (22-30); Chloride 109 mmol/L (98-107); Estimated CRCL calculation 100 ml/min; Estimated Glomerular Filt Rate > 60; Glucose 102 mg/dL (65-110); Potassium 4.1 mmol/L (3.4-5.0); Sodium 139 mmol/L (137-145)
[2024-01-29 10:53] LABS: Influenza A QL RT-PCR Positive (Negative); Influenza B QL RT-PCR Negative (Negative); RSV RNA, RT-PCR Negative (Negative); SARS-CoV-2 RNA PCR Negative (Negative)
[2024-01-29 11:01] VITALS: PULSE 87; RESP 18; O2SAT 100
[2024-01-29 11:45] VITALS: BP 123/85; PULSE 102; RESP 19; O2SAT 98
[2024-01-29 11:55] VITALS: TEMP 36.8
--- NOTE | 2024-01-29 12:25 | ED_ITS ---
HPI - General Adult General Chief complaint: Shortness of Breath/Dyspnea Stated complaint: chest pain Time Seen by Provider: 01/29/24 09:44 History of Present Illness HPI narrative: patient is a 48-year-old male who presents ER with cough. Ongoing for 2 days. Associated body aches. Has pain in the chest from coughing frequently. Nonproductive. Has history of asthma and has used his inhaler. No profound shortness of breath. No known sick contacts. Related Data Home Medications ?Medication ?Instructions ?Recorded ?Confirmed ?Last Taken ?Type albuterol sulfate 90 mcg/actuation 2 puff inhalation Q4-6H PRN 11/02/23 11/02/23 Unknown History aerosol inhaler Shortness Of Breath Or Wheezing Allergies Allergy/AdvReac Type Severity Reaction Status Date / Time haloperidol Allergy Severe Anaphylaxis Verified 01/29/24 09:55 Review of Systems 2 Review of Systems: All systems reviewed & are unremarkable except as noted in HPI and below Constitutional: Constitutional: Reports no additional constitutional complaints ENT: Reports system reviewed and no additional complaints, except as documented Cardiovascular: Cardiovascular: Reports no additional cardiovascular complaints Respiratory: Respiratory: Reports no additional respiratory complaints PMFSH Past Medical History Medical History (Updated 01/29/24 @ 12:29 by Michael Maciel MD) Asthma Abdominal pain, RUQ Social History Social History Smoking status: Never smoker Second hand tobacco smoke exposure: Yes Alcohol intake: never Gender identity (if verbalized by the patient): Male Exam 2 Narrative: GENERAL: Well-appearing, well-nourished, and in no acute distress. HEAD: Normocephalic, atraumatic. ENT: Mucous membranes moist. CHEST: Clear to auscultation. No respiratory distress. HEART: Regular rate and rhythm. Normal peripheral pulses. ABDOMEN: Soft, nontender, nondistended. EXTREMITIES: Normal range of motion. No edema. SKIN: Warm, dry, no rash. NEURO: Alert and oriented x3. PSYCH: Normal mood and affect. Course Course Emergency Course: Blood work unremarkable. Patient is influenza A positive. No pneumonia on chest x-ray. Discharge home with Tamiflu Vital Signs Vital signs: Vital Signs Temperature 98.7 F 01/29/24 09:45 Pulse Rate 97 01/29/24 09:45 Respiratory Rate 16 01/29/24 09:45 Blood Pressure 142/94 H 01/29/24 09:45 Pulse Oximetry 98 01/29/24 09:45 Oxygen Delivery Room Air 01/29/24 09:45 Temperature 98.3 F 01/29/24 11:55 Pulse Rate 102 H 01/29/24 11:45 Respiratory Rate 19 01/29/24 11:45 Blood Pressure 123/85 01/29/24 11:45 Pulse Oximetry 98 01/29/24 11:45 Oxygen Delivery Room Air 01/29/24 09:54 Medical Decision Making Vital Signs Vital Signs: Vital Signs Temperature 98.7 F 01/29/24 09:45 Pulse Rate 97 01/29/24 09:45 Respiratory Rate 16 01/29/24 09:45 Blood Pressure 142/94 H 01/29/24 09:45 Pulse Oximetry 98 01/29/24 09:45 Oxygen Delivery Room Air 01/29/24 09:45 Temperature 98.3 F 01/29/24 11:55 Pulse Rate 102 H 01/29/24 11:45 Respiratory Rate 01/29/24 11:45 Blood Pressure 123/85 01/29/24 11:45 Pulse Oximetry 98 01/29/24 11:45 Oxygen Delivery Room Air 01/29/24 09:54 Lab Data 01/29/24 09:56 01/29/24 09:56 Labs: Lab Results 01/29/24 01/29/24 Range/Units 09:56 10:02 WBC 7.8 (4.5-10.0) K/mm3 RBC 5.17 (4.6-6.20) M/mm3 Hgb 14.9 (14.0-18.0) g/dL Hct 44.5 (42.0-52.0) % MCV 86.1 (80-100) fl MCH 28.8 (26-34) pg MCHC 33.5 (32-36) g/dl RDW 13.2 (11.5-14.5) % Plt Count 266 (150-375) k/mm3 MPV 9.6 (7.4-10.4) fl Immature Gran % (Auto) 0.6 H (0-0.5) % Neut % (Auto) 81.6 H (45.5-73.1) % Lymph % (Auto) 8.5 L (18.3-44.2) % [place] % (Auto) 7.4 (2.6-8.5) % Eos % (Auto) 1.4 (0-4.4) % Baso % (Auto) 0.5 (0.2-1.2) % Lymph # (Auto) 0.66 L (0.9-3.2) K/mm3 [place] # (Auto) 0.6 (0.1-0.6) K/mm3 Eos # (Auto) 0.1 (0-0.3) K/mm3 Baso # (Auto) 0.0 (0.0-0.1) K/mm3 Abs Immat Gran (auto) 0.05 H (0.00-0.031) K/mm3 Absolute Neuts (auto) 6.4 (1.3-6.7) K/mm3 Absolute Nucleated RBC 0.000 (0.0-0.012) K/mm3 Nucleated RBC % 0.0 (0.0-0.2) % Sodium 139 (137-145) mmol/L Potassium 4.1 (3.4-5.0) mmol/L Chloride 109 H (98-107) mmol/L Carbon Dioxide 25 (22-30) mmol/L Anion Gap 5 (4-12) mmol/L BUN 19 (9-20) mg/dL Creatinine 1.00 (0.7-1.3) mg/dL Estim Creat Clear Calc 100 ml/min Estimated GFR > 60 (59 - ) Glucose 102 (65-110) mg/dL Calcium 8.9 (8.4-10.2) mg/dL Total Bilirubin 0.5 (0.2-1.3) mg/dL AST 37 (17-59) U/L ALT 39 (6-50) U/L Alkaline Phosphatase 96 (38-126) U/L Total Protein 8.0 (6.3-8.2) g/dL Albumin 4.2 (3.5-5.1) g/dL Influenza A (RT-PCR) Positive A (Negative) Influenza B (RT-PCR) Negative (Negative) RSV (RT-PCR) Negative (Negative) SARS-CoV-2 RNA (RT-PCR) Negative (Negative) Imaging Data Radiologist's impression: ITS Impressions Chest X-Ray 01/29/24 10:24 IMPRESSION: 1: NO ACUTE CARDIOPULMONARY DISEASE. Discharge Plan Discharge Clinical Impression: Influenza A Patient Disposition: Home, Self-Care Condition: Stable Instructions: Influenza (ED) Additional Instructions: As discussed you have a viral illness. Unfortunately there are no specific medications we can give you to make the illness end faster. Antibiotics do not work for viral illnesses. However, you can take Acetaminophen or Ibuprofen to help with fevers and pain. Stay well hydrated and rested. Return to the emergency department if your fevers and chills continue to worse after 5 days, if you develop worsening cough with thick sputum, or are unable to stay hydrated. Contact your primary care provider in the next few days for a re-evaluation and to make sure your symptoms are improving. Patient Language: Korean Prescriptions: New oseltamivir [Tamiflu] 75 mg capsule 75 mg PO Q12H 5 Days Qty: 10 0RF No Action albuterol sulfate 90 mcg/actuation HFA aerosol inhaler 2 puff INHALATION Q4-6H PRN (Reason: Shortness Of Breath Or Wheezing) amoxicillin-pot clavulanate 875-125 mg tablet 1 tablet PO Q12H Qty: 14 0RF loratadine [Claritin] 10 mg tablet 10 mg PO DAILY Qty: 14 0RF Follow-up/Referrals: Gino Medel MD [Primary Care Provider] - 1 Week
[2024-01-29 13:00] VITALS: BP 126/97; PULSE 110; RESP 18; TEMP 36.7; O2SAT 99
== END 2024-01-29 13:02 | disposition home or self-care (01) ==
PROVIDERS: Emergency Provider Emergency Medicine; PCP Family Medicine
DX: J10.1 Influenza due to other identified influenza virus with other respiratory manifestations (principal); Z20.822 Contact with and (suspected) exposure to COVID-19; J45.909 Unspecified asthma, uncomplicated
CPT/HCPCS: 36415; 71046; 80053; 85025; 87637; 93005; 99284

== ENCOUNTER 2024-03-01 22:42 | Emergency (ER) | payer OTHER, SELFPAY ==
--- NOTE | ~2024-03-01 | XR_ITS ---
CHEST RADIOGRAPH CLINICAL HISTORY: cough . COMPARISON: 01/29/2024 TECHNIQUE: Single portable view of the chest. FINDINGS The cardiomediastinal silhouette is unremarkable. Multiple calcified granulomas, unchanged from prior. The lungs are otherwise clear. Visualized osseous structures and soft tissues are unremarkable. IMPRESSION: No focal infiltrate or effusion. Reviewed, dictated and finalized at location A. 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
[2024-03-01 22:50] VITALS: BP 142/101; PULSE 95; RESP 18; TEMP 35.9; O2SAT 99
--- NOTE | 2024-03-01 22:51 | PC.NURSE ---
COVID PCR obtained and taken to lab
[2024-03-01] MEDS: IPRATROPIUM 0.5 MG/ALBUTEROL SULFATE 2.5 MG AMPUL.NEB 3 ML INHALATION (23:04)
[2024-03-01] MEDS: dexAMETHasone SOD PHOS INJ 10 MG/ML 1 ML VIAL IM (23:05)
[2024-03-01 23:07] LABS: Hematocrit 45.2 % (40.0-54.0); Hemoglobin 14.7 g/dL (14.0-18.0); Mean Corpuscular HGB Conc 32.5 g/dL (32-36); Mean Corpuscular Volume 86.1 fL (78.0-102.0); Mean Platelet Volume 9.4 fl (8.7-11.0); Platelet Count Result 287 K/mm3 (150-420); Red Blood Count 5.25 M/mm3 (4.70-6.10); Red Cell Distribution Width 13.3 % (11.6-14.4); White Blood Count 8.6 K/mm3 (4.8-10.8)
[2024-03-01 23:23] LABS: Alanine Aminotransferase 36 U/L (16-63); Albumin Level 3.6 g/dL (3.4-5.0); Alkaline Phosphatase 98 U/L (46-116); Anion Gap 7 mmol/L (4-12); Aspartate Amino Transferase 15 U/L (15-37); Bilirubin,Total 0.2 mg/dL (0.00-1.00); Blood Urea Nitrogen 16 mg/dL (7-18); Calcium 8.9 mg/dL (8.5-10.1); Carbon Dioxide 27 mmol/L (21-32); Chloride 106 mmol/L (98-108); Estimated CRCL calculation 79 ml/min; Estimated Glomerular Filt Rate > 60; Glucose 117 mg/dL (70-99); Osmolality Calculated 292 mOsm/kg (285-295); Sodium 140 mmol/L (136-145); Total Protein 7.1 g/dL (6.4-8.2)
[2024-03-01 23:38] LABS: Strep Group A RT-PCR NOT DETECTED (Negative)
[2024-03-01 23:44] LABS: Influenza A QL RT-PCR Negative (Negative); Influenza B QL RT-PCR Negative (Negative); RSV RNA, RT-PCR Negative (Negative); SARS-CoV-2 RNA PCR Negative (Negative)
--- NOTE | 2024-03-01 23:49 | PC.NURSE ---
patient checked, resting on stretcher without distress. patient reports improved breathing and decreased discomfort with inspiration. update provided. call light within reach.
--- NOTE | 2024-03-01 23:58 | ED_ITS ---
HPI - Asthma General Chief Complaint: Upper Respiratory Infection Stated Complaint: shortness of breath Source: patient Mode of arrival: ambulatory Limitations: no limitations History of Present Illness HPI Narrative: patient is a 48-year-old male with significant past medical history that presents today for asthma exacerbation. And vomiting. Patient says that he woke up and started vomiting felt he had gastroenteritis and that he had trouble breathing and he went to using his inhaler and he was out and he could use his inhaler. 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 He did not vomit anymore has since he has been here and does want treatment for his asthma exacerbation. He had no Other symptoms. complaint: asthma attack and shortness of breath Onset (ago): minute(s) Severity: mild Context: none known Associated symptoms: none Asthma History: adult onset Related Data Current Asthma Therapy: none Home Medications ?Medication ?Instructions ?Recorded ?Confirmed ?Last Taken ?Type albuterol sulfate 90 mcg/actuation 2 puff inhalation Q4-6H PRN 11/02/23 11/02/23 Unknown History aerosol inhaler Shortness Of Breath Or Wheezing Allergies Allergy/AdvReac Type Severity Reaction Status Date / Time haloperidol Allergy Severe Anaphylaxis Verified 03/01/24 22:51 Review of Systems 2 Review of Systems: All systems reviewed & are unremarkable except as noted in HPI and below Constitutional: Constitutional: Reports as per HPI Eyes: Eyes: Reports no additional eye complaints ENT: Reports system reviewed and no additional complaints, except as documented Cardiovascular: Cardiovascular: Reports no additional cardiovascular complaints Respiratory: Respiratory: Reports as per HPI, Reports dyspnea and Reports wheezing Gastrointestinal: Gastrointestinal: Reports no additional gastrointestinal complaints Genitourinary: Genitourinary: Reports no additional male genitourinary complaints Musculoskeletal: Musculoskeletal: Reports no additional musculoskeletal complaints Integumentary/Breasts: Skin/Breast: Reports system reviewed and no additional complaints, except as docu Neurologic: Reports system reviewed and no additional complaints, except as documented Psychiatric: Psychiatric: Reports no additional psychiatric complaints Endocrine: Endocrine: Reports no additional endocrine complaints Hematologic/Lymphatic: Hematologic/Lymphatic: Reports no additional hematologic/lymphatic complaints Allergic/Immunologic: Allergic/Immunologic: Reports no additional allergic/immunologic complaints PMFSH Past Medical History Medical History Asthma Abdominal pain, RUQ Social History Social History Smoking status: Never smoker Second hand tobacco smoke exposure: Yes Alcohol intake: never Gender identity (if verbalized by the patient): Male Exam 2 Const: General: healthy appearing Nutritional Appearance: well nourished Orientation/consciousness: patient oriented x3 HENMT: Head: normal to inspection Ears: external ears normal F lakshmi/Nose/Sinus: Normal external nose present Face and sinus: normal facial exam Mouth: Yes Normal oral and palatal mucosa present Eyes: Conjunctivae: conjunctivae normal Pupils: Equal, round and reactive pupils present EOM: EOMs intact bilaterally Neck: Neck: normal visual inspection Chest: Chest palpation & inspection: normal inspection of the chest Resp: Effort & Inspection: normal respiratory effort Auscultation: clear to auscultation bilaterally Cardio: Rate: regular rate Rhythm: regular rhythm GI: GI Palp: Yes Soft to palpation Back/Spine/Pelvis: Back: no CVA tenderness Skin: General skin exam: normal color Lesions: no lesions Wounds: no wounds Neuro: General: patient oriented x3 Cranial nerves: Yes Nystagmus not present Speech: normal speech Extrem: General: normal to inspection Psych: Mental Status: mental status grossly normal Affect: normal affect Attitude: cooperative Course Vital Signs Vital signs: Vital Signs Temperature 96.6 F L 03/01/24 22:50 Pulse Rate 95 03/01/24 22:50 Respiratory Rate 18 03/01/24 22:50 Blood Pressure 142/101 H 03/01/24 22:50 Pulse Oximetry 99 03/01/24 22:50 Oxygen Delivery Room Air 03/01/24 22:50 Temperature 96.6 F L 03/01/24 22:50 Pulse Rate 95 03/01/24 22:50 Respiratory Rate 18 03/01/24 22:50 Blood Pressure 142/101 H 03/01/24 22:50 Pulse Oximetry 99 03/01/24 22:50 Oxygen Delivery Room Air 03/01/24 22:52 MDM - Asthma MDM Narrative Medical decision making narrative: patient clearly just had an asthma exacerbation and I have little gastroenteritis throwing up her Mace food poisoning. Discussed with him that nothing to do with the gastroenteritis as viral not able maybe last couple days and then will dissipate. We will give him a DuoNeb treatment for his asthma g give him a shot of Decadron. Did an x-ray of the chest and showed no acute process. Patient felt much better after the shot DuoNeb in the breathing treatment and was able to be just fine his lungs are perfectly clear. Differential Diagnosis Differential diagnosis: Likely Acute exacerbation Medical Records Attestation: I reviewed the patient's medical records. Lab Data Attestation: I reviewed the patient's lab results. 03/01/24 23:01 03/01/24 23:02 Labs: Lab Results 03/01/24 03/01/24 Range/Units 23:01 23:02 WBC 8.6 (4.8-10.8) K/mm3 RBC 5.25 (4.70-6.10) M/mm3 Hgb 14.7 (14.0-18.0) g/dL Hct 45.2 (40.0-54.0) % MCV 86.1 (78.0-102.0) fL MCH 28.0 (27.0-31.0) pg MCHC 32.5 (32-36) g/dL RDW 13.3 (11.6-14.4) % Plt Count 287 (150-420) K/mm3 MPV 9.4 (8.7-11.0) fl Sodium 140 (136-145) mmol/L Potassium 4.0 (3.5-5.1) mmol/L Chloride 106 (98-108) mmol/L Carbon Dioxide 27 (21-32) mmol/L Anion Gap 7 (4-12) mmol/L BUN 16 (7-18) mg/dL Creatinine 1.26 (0.70-1.30) mg/dL Estim Creat Clear Calc 79 ml/min Estimated GFR > 60 (59 - ) Glucose 117 H (70-99) mg/dL Calculated Osmolality 292 (285-295) mOsm/kg Calcium 8.9 (8.5-10.1) mg/dL Total Bilirubin 0.2 (0.00-1.00) mg/dL AST 15 (15-37) U/L ALT 36 (16-63) U/L Alkaline Phosphatase 98 (46-116) U/L Total Protein 7.1 (6.4-8.2) g/dL Albumin 3.6 (3.4-5.0) g/dL Influenza A (RT-PCR) Negative (Negative) Influenza B (RT-PCR) Negative (Negative) RSV (RT-PCR) Negative (Negative) SARS-CoV-2 RNA (RT-PCR) Negative (Negative) Group A Strep (PCR) Not detected (Negative) ABG Data Attestation: I personally reviewed and interpreted this ABG as follows: Imaging Data Attestation: I personally reviewed and interpreted this imaging study as follows: Discharge Plan Discharge Clinical Impression: Asthma exacerbation, Gastroenteritis Patient Disposition: Home, Self-Care Condition: Stable Instructions: Asthma (ED) Patient Language: Chinese Prescriptions: New albuterol sulfate [Ventolin HFA] 90 mcg/actuation HFA aerosol inhaler 2 puff inhalation QID PRN (Reason: shortness of breath or wheezing) Qty: 6.7 1RF No Action albuterol sulfate 90 mcg/actuation HFA aerosol inhaler 2 puff INHALATION Q4-6H PRN (Reason: Shortness Of Breath Or Wheezing) Follow-up/Referrals: Gino Medel MD [Primary Care Provider] - Time of Disposition: 00:05
[2024-03-02 00:11] VITALS: BP 128/95; PULSE 97; RESP 18; TEMP 36.9; O2SAT 97
--- OUTSIDE RECORDS SUMMARY | 2024-03-04 15:03 | XMS_ITS | CONTINUITY OF CARE DOCUMENT ---
Author Name isma ashby Address Unknown Organization [facility] Address [address] [place] [address] Phone [phone] Care Team Providers Care Molasses And Caramel Operator Name Role Phone Kristopher Capellan MD Unavailable [phone] ESTEFANIA DIAZ MD Unavailable INSURANCE PROVIDERS Payer name Policy type / Coverage type [employer] Medicaid 1 [id number]
--- OUTSIDE RECORDS SUMMARY | 2024-03-04 15:03 | XMS_ITS | Clinical Summary ---
Author Organization [facility] Address Formerly [facility] [place] [address] [place] [address] Care Team Providers Care Head Esthetician Name Role Phone Gino Medel MD Primary Care Provider Allergies Active Allergy Reactions Criticality Noted Date Comments Haloperidol Anaphylaxis High 08/29/2019 Medications albuterol sulfate HFA 108 (90 Base) MCG/ACT inhaler Inhale 2 puffs into the lungs every 6 (six) hours as needed. 06/19/2022 Active ibuprofen (MOTRIN) 600 MG tablet Take 1 tablet (600 mg total) by mouth every 6 (six) hours as needed. 20 tablet 12/15/2023 Active HYDROcodone-lakshmi taminophen (NORCO) 5-325 MG tabletIndicatio ns:Acute Pain < 7 Day Supply Take 1-2 tablets by mouth every 6 (six) hours as needed. Indications: Acute Pain < 7 Day Supply 20 tablet 01/13/2024 Active Encounters Date Type Department Care Team Description 01/13/2024 7:[address] [facility] - 01/13/2024 8:[address] [facility] Emergency [place] [facility] [address] [place] [address] Leo Reinoso MD Arm Pain; Fall Discharge Disposition: Home or Self Care (Routine Discharge) 01/13/2024 Travel 12/15/2023 7:33 PM JOB PRINTER APPRENTICE - 12/15/2023 9:[address] [facility] Emergency [place] [facility] [place] [address] Stephanie Lucas MD Foot Pain Discharge Disposition: Home or Self Care (Routine Discharge) 12/15/2023 Travel from Last 3 Months Immunizations Name Administration Dates Next Due Tdap (Boostrix) 08/29/2019 Social History Tobacco Use Types Packs/Day Years Used Date Smoking Tobacco: Never Smokeless Tobacco: Never Tobacco Cessation:Counseling Given: Not Answered Alcohol Use Standard Drinks/Week Comments Yes 0 (1 standard drink = 0.6 oz pure alcohol) drank alot before going to senior care Sex and Gender Information Value Date Recorded Sex Assigned at Not on file Legal Sex Male 3:04 AM CDT Gender Identity Not on file Sexual Orientation Not on file Last Filed Vital Signs Vital Sign Reading Time Taken Comments Blood Pressure 159/86 01/13/2024 7:49 PM JOB PRINTER APPRENTICE Pulse 86 01/13/2024 7:49 PM JOB PRINTER APPRENTICE Temperature 36.4 ??C (97.5 ??F) 01/13/2024 7:49 PM CS T Respiratory Rate 16 01/13/2024 7:49 PM JOB PRINTER APPRENTICE Oxygen Saturation 99% 01/13/2024 7:49 PM JOB PRINTER APPRENTICE Inhaled Oxygen Concentration - - Weight 113.4 kg (250 lb) 01/13/2024 7:49 PM JOB PRINTER APPRENTICE Height 170.2 cm (5' 7 ) 01/13/2024 7:49 PM JOB PRINTER APPRENTICE Body Mass Index 39.16 01/13/2024 7:49 PM JOB PRINTER APPRENTICE Plan of Treatment Health Maintenance Due Date Last Done Comments Colorectal Cancer Screening Colonoscopy (10 Years) 1976 Annual Physical 11/16/1979 Hepatitis C 1994 Hepatitis B Vaccines (1 of 3 - 19+ 3-dose series) 11/16/1995 COVID-19 Vaccine (2023-2 5 season) 2023 Influenza Adult (#1) 2023 DTaP, Tdap and Td Vaccines ( 2 - Td or Tdap) 08/28/2029 08/29/2019 Meningococcal Vaccine Aged Out No matt horace eligible based on patient's age to complete this topic Pneumococcal Vaccine: Pediat rics (0 to 5 Years) and At-Risk Patients (6 to 64 Years) Aged Out No longer eligi ble based on patient's age to complete this topic RSV Immunizations Under 20 Months Aged Out No longer eligible based on patient's age to complete this topic Procedures Procedure Name Priority Date/Time Associated Diagnosis Comments XR SHOULDER LT 3V STAT 01/13/2024 8:2 0 PM JOB PRINTER APPRENTICE XR ELBOW LT M3V STAT 01/13/2024 8:20 PM JOB PRINTER APPRENTICE XR WRIST LT MIN 3V STAT 01/13/2024 8: 20 PM JOB PRINTER APPRENTICE XR FOOT RT 3V STAT 12/15/2023 8:13 PM JOB PRINTER APPRENTICE from Last 3 Months Results * XR SHOULDER LT 3V (01/13/2024 8:20 PM JOB PRINTER APPRENTICE) Anatomical Region Laterality Modality Shoulder Radiographic Malissa ging 01/13/2024 8:22 PM JOB PRINTER APPRENTICE Impressions 01/13/2024 8:24 PM JOB PRINTER APPRENTICE IMPRESSION: 1. ??NO EVIDENCE OF ACUTE FRACTURE OR DISLOCATION. Signed: Daniel Villarreal MD Referred By: ?? Interpreted By: Daniel Villarreal MD, 01/13/2024 8:22 PM Narrative 01/13/2024 8:24 PM JOB PRINTER APPRENTICE [address] [place] [facility] PATIENT NAME: JUANITO SINGH EXAM: Left shoulder 3 view DATE OF EXAM: 01/13/2024 COMPARISON EXAM: None INDICATION: Trauma TECHNIQUE: AP internal/external rotation views left shoulder, axillary view FINDINGS: No gross focal soft tissue abnormality. ??Limited range of motion between internal and external rotation. ??No definite evidence of acute fracture or dislocation. ??The glenohumeral joint and AC joint are grossly unremarkable. Procedure Note Daniel Villarreal MD - 01/13/[address] [place] [address] PATIENT NAME: JUANITO SINGH EXAM: Left shoulder 3 view DATE OF EXAM: 01/13/2024 COMPARISON EXAM: None INDICATION: Trauma TECHNIQUE: AP internal/external rotation views left shoulder, axillaryview FINDINGS: No gross focal soft tissue abnormality. Limited range of motionbetween internal and external rotation. No definite evidence of acutefracture or dislocation. The glenohumeral joint and AC joint are grosslyunremarkable. IMPRESSION: 1. NO EVIDENCE OF ACUTE FRACTURE OR DISLOCATION. Signed: Daniel Villarreal MD Referred By: Interpreted By: Daniel Villarreal MD, 01/13/2024 8:22 PM Leo Reinoso MD GENERAL IMAGING Final Result * XR WRIST LT MIN 3V (01/13/2024 8:20 PM JOB PRINTER APPRENTICE) Anatomical Region Laterality Modality Wrist Radiographic Malissa ging 01/13/2024 8:25 PM JOB PRINTER APPRENTICE Impressions 01/13/2024 8:26 PM JOB PRINTER APPRENTICE IMPRESSION: 1. ??NO EVIDENCE OF ACUTE FRACTURE OR DISLOCATION. Signed: Daniel Villarreal MD Referred By: ?? Interpreted By: Daniel Villarreal MD, 01/13/2024 8:25 PM Narrative 01/13/2024 8:26 PM JOB PRINTER APPRENTICE [address] [place] [address] PATIENT NAME: JUANITO SINGH EXAM: Partial reformatted left wrist 3 view DATE OF EXAM: 01/13/2024 COMPARISON EXAM: None INDICATION: Trauma TECHNIQUE: AP, lateral and oblique left wrist, FINDINGS: No acute soft tissue abnormality. ??No evidence of acute fracture or dislocation. ??Joint spaces are well-maintained. Procedure Note Daniel Villarreal MD - 01/13/[address] [place] [address] PATIENT NAME: JUANITO SINGH EXAM: Partial reformatted left wrist 3 view DATE OF EXAM: 01/13/2024 COMPARISON EXAM: None INDICATION: Trauma TECHNIQUE: AP, lateral and oblique left wrist, FINDINGS: No acute soft tissue abnormality. No evidence of acute fractureor dislocation. Joint spaces are well-maintained. IMPRESSION: 1. NO EVIDENCE OF ACUTE FRACTURE OR DISLOCATION. Signed: Daniel Villarreal MD Referred By: Interpreted By: Daniel Villarreal MD, 01/13/2024 8:25 PM Leo Reinoso MD GENERAL IMAGING Final Result * XR ELBOW LT M3V (01/13/2024 8:20 PM JOB PRINTER APPRENTICE) Anatomical Region Laterality Modality Elbow Radiographic Malissa ging 01/13/2024 8:24 PM JOB PRINTER APPRENTICE Impressions 01/13/2024 8:25 PM JOB PRINTER APPRENTICE IMPRESSION: 1. ??NO SIGNIFICANT RADIOGRAPHIC ABNORMALITY. Signed: Daniel Villarreal MD Referred By: ?? Interpreted By: Daniel Villarreal MD, 01/13/2024 8:24 PM Narrative 01/13/2024 8:25 PM JOB PRINTER APPRENTICE [address] [place] [address] PATIENT NAME: JUANITO SINGH EXAM: Left elbow 3 view DATE OF EXAM: 01/13/2024 COMPARISON EXAM: None INDICATION: Trauma TECHNIQUE: AP, lateral and oblique left elbow FINDINGS: No soft tissue abnormality. ??No fat pad elevation. ??No evidence of acute fracture or dislocation. ??Joint spaces are well-maintained. Procedure Note Daniel Villarreal MD - 01/13/[address] [place] [address] PATIENT NAME: JUANITO SINGH EXAM: Left elbow 3 view DATE OF EXAM: 01/13/2024 COMPARISON EXAM: None INDICATION: Trauma TECHNIQUE: AP, lateral and oblique left elbow FINDINGS: No soft tissue abnormality. No fat pad elevation. No evidenceof acute fracture or dislocation. Joint spaces are well-maintained. IMPRESSION: 1. NO SIGNIFICANT RADIOGRAPHIC ABNORMALITY. Signed: Daniel Villarreal MD Referred By: Interpreted By: Daniel Villarreal MD, 01/13/2024 8:24 PM Leo Reinoso MD GENERAL IMAGING Final Result * XR FOOT RT 3V (12/15/2023 8:13 PM JOB PRINTER APPRENTICE) Anatomical Region Laterality Modality Foot Radiographic Malissa ging 12/15/2023 8:15 PM JOB PRINTER APPRENTICE Impressions 12/15/2023 8:52 PM JOB PRINTER APPRENTICE IMPRESSION: Mild osteoarthritic changes of the first MTP The attending radiologist has reviewed the image(s) and agrees with the content of this report. The attending radiologist has reviewed the image(s) and agrees with the content of this report. Ordered By: STEPHANIE LUCAS Interpreted By: Sary Wade MD, 12/15/2023 8:15 PM Narrative 12/15/2023 8:52 PM JOB PRINTER APPRENTICE [address] [place] [address] XR FOOT RT 3V: 12/15/2023 8:13 PM HISTORY: Anterior lateral foot pain of one year's duration, pain worse today TECHNIQUE: 3 views of the right foot submitted COMPARISON: Right foot radiographs 09/28/2022 FINDINGS: No acute fracture or dislocation. No significant soft tissue swelling. Stable mild osteoarthritis of the first MTP joint. Tarsal joints appear well aligned. Redemonstrated tiny bone density projecting medial to the first MTP. Tiny calcaneal enthesophyte. ?? Procedure Note Ga Louis MD - 12/15/[address] [place] [address] XR FOOT RT 3V: 12/15/2023 8:13 PM HISTORY: Anterior lateral foot pain of one year's duration, pain worsetoday TECHNIQUE: 3 views of the right foot submitted COMPARISON: Right foot radiographs 09/28/2022 FINDINGS: No acute fracture or dislocation. No significant soft tissue swelling.Stable mild osteoarthritis of the first MTP joint. Tarsal joints appearwell aligned. Redemonstrated tiny bone density projecting medial to thefirst MTP. Tiny calcaneal enthesophyte. IMPRESSION: Mild osteoarthritic changes of the first MTP The attending radiologist has reviewed the image(s) and agrees with thecontent of this report. The attending radiologist has reviewed the image(s) and agrees with thecontent of this report. Ordered By: STEPHANIE LUCAS Interpreted By: Sary Wade MD, 12/15/2023 8:15 PM Stephanie Lucas MD GENERAL IMAGING Final Result from Last 3 Months Insurance A[employer] CIG[employer] Care Teams Head Esthetician Relationship Specialty Start Date End Date Gino Medel MD [address] [place] [address] PCP - General FAMILY PRACTICE 03/05/23
== END 2024-03-02 00:12 | disposition home or self-care (01) ==
PROVIDERS: Emergency Provider Family Medicine; PCP Family Medicine
DX: J45.901 Unspecified asthma with (acute) exacerbation (principal); K52.9 Noninfective gastroenteritis and colitis, unspecified; Z20.822 Contact with and (suspected) exposure to COVID-19
CPT/HCPCS: 36415; 71045; 80053; 85027; 87637; 87651; 94640; 96372; 99283; J1100

== ENCOUNTER 2024-04-26 18:50 | Emergency (ER) | payer OTHER, MEDICAID, SELFPAY ==
[2024-04-26 18:58] VITALS: BP 131/97; PULSE 84; RESP 18; TEMP 36.4; O2SAT 97
--- NOTE | 2024-04-26 19:12 | ED.BACK ---
HPI - Back Pain/Injury General Chief Complaint: Back Pain/Injury Stated Complaint: back pain Time Seen by Provider: 04/26/24 19:03 Source: patient and family Mode of arrival: ambulatory Limitations: no limitations History of Present Illness HPI Narrative: 48 YEARS OLD WHITE MALE CAME TO THE ED BY PRIVATE CAR COMPLAINING OF LOWER BACK PAIN STARTED YESTERDAY. PATIENT REPORTS LIFTING HEAVY CONCRETE BAGS THE DAY PRIOR TO THAT, WORKUP IN THE MORNING WITH PAIN ACROSS THE LUMBAR AREA RADIATING TO THE GROIN AREA BILATERALLY. WORSE WITH ANY MOVEMENT, BETTER IF HE STAYS STILL IN BED. HE DENIES ANY FEVER, CHILLS, NAUSEA VOMITING, RADIATION OF PAIN, TINGLING OR NUMBNESS OR FOCAL NEURO DEFICIT. Related Data Home Medications ?Medication ?Instructions ?Recorded ?Confirmed ?Last Taken ?Type albuterol sulfate 90 mcg/actuation 2 puff inhalation Q4-6H PRN 11/02/23 11/02/23 Unknown History aerosol inhaler Shortness Of Breath Or Wheezing Allergies Allergy/AdvReac Type Severity Reaction Status Date / Time haloperidol Allergy Severe Anaphylaxis Verified 04/26/24 19:11 Review of Systems Review of Systems: All systems reviewed & are unremarkable except as noted in HPI and below PMFSH Past Medical History Medical History Asthma Abdominal pain, RUQ Social History Social History Smoking status: Never smoker Second hand tobacco smoke exposure: Yes Alcohol intake: never Gender identity (if verbalized by the patient): Male Exam Narrative: GENERAL APPEARANCE: WELL-DEVELOPED, WELL-NOURISHED SKIN: NORMAL COLOR HEAD: NORMOCEPHALIC, NONTRAUMATIC EYES: CLEAR CONJUNCTIVA ENT: OROPHARYNX NORMAL, EARS NORMAL, NOSE NORMAL NECK: SUPPLE, NONTENDER CHEST AND RESPIRATORY: AIRWAY PATENT, NO RESPIRATORY DISTRESS, NO ACCESSORY MUSCLE USE HEART: REGULAR RATE/RHYTHM ABDOMEN: SOFT, NONTENDER, NO ORGANOMEGALY, QUIET BOWEL SOUNDS VASCULAR: NORMAL PERIPHERAL PULSES, NORMAL CAPILLARY REFILL. MUSCULOSKELETAL: DIFFUSE TENDERNESS ACROSS THE LUMBAR AREA, NO BRUISES, NO SWELLING SEVERE LIMITED RANGE OF MOTION NEUROLOGIC: ALERT AND ORIENTED ?3, ARCHITECTURAL EXAMINER IS NORMAL TESTED, NO GROSS MOTOR DEFICIT Course Vital Signs Vital signs: Vital Signs Temperature 36.4 C L 04/26/24 18:58 Pulse Rate 84 04/26/24 18:58 Respiratory Rate 18 04/26/24 18:58 Blood Pressure 131/97 H 04/26/24 18:58 Pulse Oximetry 97 04/26/24 18:58 Oxygen Delivery Room Air 04/26/24 18:58 Temperature 36.4 C L 04/26/24 18:58 Pulse Rate 84 04/26/24 18:58 Respiratory Rate 18 04/26/24 18:58 Blood Pressure 131/97 H 04/26/24 18:58 Pulse Oximetry 97 04/26/24 18:58 Oxygen Delivery Room Air 04/26/24 18:58 MDM - Back Pain/Injury MDM Narrative Medical decision making narrative: DIFFERENTIAL DIAGNOSIS LOWER BACK MUSCULAR STRAIN OR SPRAIN NO IMAGING OR BLOOD WORKUP ARE REQUIRED AT THIS TIME. Differential Diagnosis Differential diagnosis: Likely other ( LOWER BACK MUSCULAR STRAIN/SPRAIN) Critical Care Time Critical Care Time Critical Care Time: No Discharge Plan Discharge Clinical Impression: Strain of lumbar region Patient Disposition: Home, Self-Care Condition: Improved Instructions: Acute Low Back Pain (ED) Additional Instructions: RETURN IF SYMPTOMS ARE WORSENING , CALL YOUR FAMILY PHYSICIAN FOR APPOINTMENT, TAKE TYLENOL NEEDED FOR ACHES AND PAIN, CONTINUE HOME MEDICATIONS. MASSAGE HEATING PAD EXERCISE Patient Language: Andorran Prescriptions: New naproxen [Naprosyn] 500 mg tablet 500 mg PO BID PRN (Reason: pain) Qty: 20 0RF cyclobenzaprine 10 mg tablet 10 mg PO TID PRN (Reason: muscle spasm) Qty: 20 0RF No Action albuterol sulfate [Ventolin HFA] 90 mcg/actuation HFA aerosol inhaler 2 puff inhalation QID PRN (Reason: shortness of breath or wheezing) Qty: 6.7 1RF albuterol sulfate 90 mcg/actuation HFA aerosol inhaler 2 puff INHALATION Q4-6H PRN (Reason: Shortness Of Breath Or Wheezing) Follow-up/Referrals: Gino Medel MD [Primary Care Provider] - Stand Alone Forms: Work/School Release IP
[2024-04-26] MEDS: IBUPROFEN 400 MG TABLET 800 MG PO (19:17)
[2024-04-26] MEDS: ONDANSETRON HCL ODT 4 MG TABLET PO (19:18)
[2024-04-26] MEDS: HYDROmorphone HCL INJ (*CRX) 2 MG/ML VIAL 1 MG IM (19:18)
[2024-04-26] MEDS: diazePAM (*CRX) 5 MG TABLET PO (19:18)
--- OUTSIDE RECORDS SUMMARY | 2024-04-26 19:22 | XMS_ITS | CONTINUITY OF CARE DOCUMENT ---
Author Name isma ashby Address Unknown Organization [facility] Address [address] [place] [address] Phone [phone] Care Team Providers Care Cadmium Plater Name Role Phone Kristopher Capellan MD Unavailable ESTEFANIA DIAZ MD Unavailable [phone] INSURANCE PROVIDERS Payer name Policy type / Coverage type Ty red alliance party ID [facility]CARE AND FAMILY [facility] Medicaid 1 [id number]
--- OUTSIDE RECORDS SUMMARY | 2024-04-26 19:22 | XMS_ITS | Clinical Summary ---
Author Organization [facility] Address [address] [place] [address] Care Team Providers Care Carpenter Apprentice Name Role Phone Gino Medel MD Primary [...] 7 Day Supply 20 tablet 01/13/2024 Active Immunizations Name Administration Dates Next Due Tdap (Boostrix) 08/29/2019 Social History Tobacco Use Types Packs/Day Years Used Date Smoking Tobacco: Never Smokeless Tobacco: Never Tobacco Cessation:Counseling Given: Not Answered Alcohol Use Standard Drinks/Week Comments Yes 0 (1 standard drink = 0.6 oz pure alcohol) drank alot before going to retirement Sex and Gender Information Value Date Recorded Sex Assigned at Not on file Legal Sex Male 3:04 AM CDT Gender Identity Not on file Sexual Orientation Not on file Last Filed Vital Signs Vital Sign Reading Time Taken Comments Blood Pressure 159/86 01/13/2024 7:49 PM DIRT SHOVELER Pulse 86 01/13/2024 7:49 PM DIRT SHOVELER Temperature 36.4 C (97.5 F) 01/13/2024 7:49 PM DIRT SHOVELER Respiratory Rate 16 01/13/2024 7:49 PM DIRT SHOVELER Oxygen Saturation 99% 01/13/2024 7:49 PM DIRT SHOVELER Inhaled Oxygen Concentration - - Weight 113.4 kg (250 lb) 01/13/2024 7:49 PM DIRT SHOVELER Height 170.2 cm (5' 7 ) 01/13/2024 7:49 PM DIRT SHOVELER Body Mass Index 39.16 01/13/2024 7:49 PM DIRT SHOVELER Plan of Treatment Health Maintenance Due Date Last Done Comments Colorectal Cancer Screening Colonoscopy (10 Years) 1976 Annual Physical 11/16/1979 Hepatitis C 1994 Hepatitis B Vaccines (1 of 3 - 19+ 3-dose series) 11/16/1995 COVID-19 Vaccine (2023-2 5 season) 2023 Influenza Adult (#1) 2023 DTaP, Tdap and Td Vaccines ( 2 - Td or Tdap) 08/28/2029 08/29/2019 Meningococcal B Vaccine Aged Out No l onger eligible based on patient's age to complete this topic Meningococcal Vaccine Aged Out No matt horace eligible based on patient's age to complete this topic Pneumococcal Vaccine: Pediat rics (0 to 5 Years) and At-Risk Patients (6 to 64 Years) Aged Out No longer eligi ble based on patient's age to complete this topic RSV Immunizations Under 20 Months Aged Out No longer eligible based on patient's age to complete this topic [place] [address] [facility] Care Teams Carpenter Apprentice Relationship Specialty Start Date End Date Gino Medel MD [address] [place] [address] PCP - General FAMILY PRACTICE 03/05/23
--- OUTSIDE RECORDS SUMMARY | 2024-04-26 19:31 | XMS_ITS | CONTINUITY OF CARE DOCUMENT ---
Author Name isma ashby Address Unknown Organization [facility] Address [address] [place] [address] Phone [phone] Care Team Providers Care Manager Division Name Role Phone Kristopher Capellan MD Unavailable ESTEFANIA DIAZ MD Unavailable [phone] INSURANCE PROVIDERS Payer name Policy type / Coverage type Ty red republican ID HEALTHCARE AND FAMILY SERVICES Medicaid 1 [id number]
== END 2024-04-26 19:51 | disposition home or self-care (01) ==
LOC: CHSED 19:29
PROVIDERS: Emergency Provider Emergency Medicine; PCP Family Medicine
DX: S39.012A Strain of muscle, fascia and tendon of lower back, initial encounter (principal); X50.0XXA Overexertion from strenuous movement or load, initial encounter; J45.909 Unspecified asthma, uncomplicated
CPT/HCPCS: 96372; 99283; A9270; J1171

== ENCOUNTER 2024-08-10 05:24 | Emergency (ER) | payer OTHER, MEDICAID, SELFPAY ==
--- NOTE | ~2024-08-10 | CT_ITS ---
CT of the Abdomen and Pelvis: Indication: Abdominal pain Technique: 2.5 mm axial scans were obtained through the abdomen and pelvis following intravenous adm inistration of 100 cc of Omnipaque 350. Dose reduction technique was used on this scan by utilizing a utomated exposure control and iterative reconstruction technique. The dose-length product (DLP) was 1 499.08 mGy-cm. COMPARISON: 11/16/2022 Findings: Scans through the lung bases demonstrate calcified granulomas. The liver, spleen, pancreas, gallbladder, adrenals and kidneys are within normal limits. No evidence of aortic aneurysm. No lymphadenopathy. No bowel obstruction or bowel wall thickening. There is no evidence to suggest acute appendicitis. Images through the pelvis were performed. Urinary bladder unremarkable. No pelvic mass seen. No ascit es. Impression: No significant abnormalities seen. Reviewed, dictated and finalized at [facility]. Impression: No significant abnormalities seen.
[2024-08-10 05:25] VITALS: BP 142/92; PULSE 79; RESP 20; TEMP 36.6; O2SAT 97
--- OUTSIDE RECORDS SUMMARY | 2024-08-10 05:26 | XMS_ITS | Clinical Summary ---
Author Organization [facility] Address [address] [place] [address] Care Team Providers Care Town Marshal Name Role Phone Gino Medel MD Primary Care Provider [phone] Allergies Active Allergy Reactions Criticality Noted Date [...] Day Supply 20 tablet 01/13/2024 Active Immunizations Immunization Administration Dates Next Due Tdap (Boostrix) 08/29/2019 Social History Tobacco Use Types Packs/Day Years Used Date Smoking Tobacco: Never Smokeless Tobacco: Never Tobacco Cessation:Counseling Given: Not Answered Alcohol Use Standard Drinks/Week Comments Yes 0 (1 standard drink = 0.6 oz pure alcohol) drank alot before going to residential Sex and Gender Information Value Date Recorded Sex Assigned at Not on file Legal Sex Male 3:04 AM CDT Gender Identity Not on file Sexual Orientation Not on file Last Filed Vital Signs Vital Sign Reading Time Taken Comments Blood Pressure 159/86 01/13/2024 7:49 PM FEDERAL APPELLATE LAW CLERK Pulse 86 01/13/2024 7:49 PM FEDERAL APPELLATE LAW CLERK Temperature 36.4 C (97.5 F) 01/13/2024 7:49 PM FEDERAL APPELLATE LAW CLERK Respiratory Rate 16 01/13/2024 7:49 PM FEDERAL APPELLATE LAW CLERK Oxygen Saturation 99% 01/13/2024 7:49 PM FEDERAL APPELLATE LAW CLERK Inhaled Oxygen Concentration - - Weight 113.4 kg (250 lb) 01/13/2024 7:49 PM FEDERAL APPELLATE LAW CLERK Height 170.2 cm (5' 7) 01/13/2024 7:49 PM FEDERAL APPELLATE LAW CLERK Body Mass Index 39.16 01/13/2024 7:49 PM FEDERAL APPELLATE LAW CLERK Plan of Treatment Health Maintenance Due Date Last Done Comments Colorectal Cancer Screening Colonoscopy (10 Years) 1976 Annual Physical 11/16/1979 Hepatitis C 1994 Hepatitis B Vaccines (1 of 3 - 19+ 3-dose series) 11/16/1995 COVID-19 Vaccine (2023-2 5 season) 2023 DTaP, Tdap and Td Vaccines ( 2 - Td or Tdap) 08/28/2029 08/29/2019 Meningococcal B Vaccine Aged Out No l onger eligible based on patient's age to complete this topic Meningococcal Vaccine Aged Out No matt horace eligible based on patient's age to complete this topic Pneumococcal Vaccine: Pediat rics (0 to 5 Years) and At-Risk Patients (6 to 49 Years) Aged Out No longer eligi ble based on patient's age to complete this topic RSV Immunizations Under 20 Months Aged Out No longer eligible based on patient's age to complete this topic Insurance AET[employer] CIGNA Care Teams Town Marshal Relationship Specialty Start Date End Date Gino Medel MD [address] [place] [address] PCP - General FAMILY PRACTICE 03/05/23
--- NOTE | 2024-08-10 05:37 | ED.ABDPAIN ---
HPI - Abdominal Pain General Chief Complaint: Abdominal Pain Stated Complaint: Shorthness of breath, Vomiting Time Seen by Provider: 08/10/24 05:37 Source: patient Mode of arrival: ambulatory Limitations: no limitations History of Present Illness HPI narrative: 48 years old white male with history of asthma workup 1 hour prior to arrival with upper abdominal sharp stabbing pain radiating old way to the back associated with nausea and frequent vomiting. Feeling hot/ cold. Patient denies chest pain or shortness of breath diarrhea or constipation or urinary symptoms or history of abdominal surgery. Patient does not smoke drinks occasionally does not use drugs. Related Data Home Medications ?Medication ?Instructions ?Recorded ?Confirmed ?Last Taken ?Type albuterol sulfate 90 mcg/actuation 2 puff inhalation Q4-6H PRN 11/02/23 11/02/23 Unknown History aerosol inhaler Shortness Of Breath Or Wheezing Allergies Allergy/AdvReac Type Severity Reaction Status Date / Time haloperidol Allergy Severe Anaphylaxis Verified 04/26/24 19:11 Review of Systems Review of Systems: All systems reviewed & are unremarkable except as noted in HPI and below PMFSH Past Medical History Medical History Asthma Abdominal pain, RUQ Social History Social History Smoking status: Never smoker Second hand tobacco smoke exposure: Yes Alcohol intake: never Gender identity (if verbalized by the patient): Male Exam Narrative: General appearance: Well-developed, well-nourished Skin: Normal color Head: Normocephalic, nontraumatic Eyes: Clear conjunctiva ENT: Oropharynx normal, ears normal, nose normal Neck: Supple, nontender Chest and respiratory: Airway patent, no respiratory distress, no accessory muscle use Heart: Regular rate/rhythm Abdomen: Soft, Diffuse upper abdominal tenderness, no guarding or rebound, no organomegaly, quiet bowel sounds Vascular: Normal peripheral pulses, normal capillary refill. Musculoskeletal: Normal range of motion, nontender back Neurologic: Alert and oriented ?3, [employer] is normal as tested, no gross motor deficit Course Vital Signs Vital signs: Vital Signs Temperature 36.6 C 08/10/24 05:25 Pulse Rate 79 08/10/24 05:25 Respiratory Rate 20 08/10/24 05:25 Blood Pressure 142/92 H 08/10/24 05:25 Pulse Oximetry 97 08/10/24 05:25 Oxygen Delivery Room Air 08/10/24 05:25 Temperature 36.6 C 08/10/24 05:25 Pulse Rate 84 08/10/24 06:00 Respiratory Rate 20 08/10/24 06:00 Blood Pressure 125/84 08/10/24 06:00 Pulse Oximetry 95 08/10/24 06:00 Oxygen Delivery Room Air 08/10/24 06:00 MDM - Abdominal Pain MDM Narrative Medical decision making narrative: patient came to the ED with upper abdominal pain associated with vomiting started within 1 hour prior to arrival Vital signs showing blood pressure 142/92 otherwise within normal limit Physical examination showing diffuse tenderness across the upper abdomen Differential diagnosis include pancreatitis, cholecystitis, gastritis, esophagitis, constipation, colitis, diverticulitis, acute coronary syndrome Blood workup today includes CBC, CMP, lipase, lactic acid, troponin showed creatinine 1.3 consistent with previous readings Urinalysis showed no evidence of infection EKG on arrival showed normal sinus rhythm otherwise within normal limit CT abdomen and pelvis with IV contrast showed no significant abnormalities seen Diagnosis abdominal pain of unknown etiology, vomiting Discharged home on Bentyl and Zofran. The pt was discharged to home.the pt,s condition upon discharge was fair,education was provided to the pt in reference to the final impression,discharge study results,treatment,prognosis and need for follow up . Differential Diagnosis Differential diagnosis: Likely other (As above) Lab Data 08/10/24 05:44 08/10/24 05:44 Labs: Lab Results 08/10/24 08/10/24 Range/Units 05:44 06:28 WBC 5.9 (4.8-10.8) K/mm3 RBC 5.30 (4.70-6.10) M/mm3 Hgb 14.9 (14.0-18.0) g/dL Hct 45.7 (40.0-54.0) % MCV 86.2 (78.0-102.0) fL MCH 28.1 (27.0-31.0) pg MCHC 32.6 (32-36) g/dL RDW 13.0 (11.6-14.4) % Plt Count 258 (150-420) K/mm3 MPV 9.4 (8.7-11.0) fl Immature Gran % (Auto) 0.5 H (0.0-0.0) % Neut % (Auto) 60.1 (50.0-70.0) % Lymph % (Auto) 26.4 (18.0-42.0) % [place] % (Auto) 10.0 (2.0-11.0) % Eos % (Auto) 2.2 (1.0-6.0) % Baso % (Auto) 0.8 (0.0-1.0) % Lymph # (Auto) 1.56 (1.10-4.50) K/mm3 [place] # (Auto) 0.59 (0.10-0.90) K/mm3 Eos # (Auto) 0.13 (0.02-0.50) K/mm3 Baso # (Auto) 0.05 (0.00-0.10) K/mm3 Abs Immat Gran (auto) 0.03 H (0.00-0.00) K/mm3 Absolute Neuts (auto) 3.55 (1.70-7.20) K/mm3 Absolute Nucleated RBC 0.00 (0.00-0.00) K/mm3 Nucleated RBC % 0.0 (0-0.0) % PT 9.6 (9.50-12.1) Seconds INR 0.9 APTT 25.1 (23.9-30.70) Sec Sodium 140 (137-145) mmol/L Potassium 3.9 (3.4-5.0) mmol/L Chloride 109 H (98-107) mmol/L Carbon Dioxide 25 (22-30) mmol/L Anion Gap 6 (4-12) mmol/L BUN 17 (9-20) mg/dL Creatinine 1.32 H (0.7-1.3) mg/dL Estim Creat Clear Calc 75 ml/min Estimated GFR 58 L (59 - ) Glucose 115 H (65-110) mg/dL Calculated Osmolality 292 (285-295) mOsm/kg Lactic Acid 1.2 (0.4-2.0) mmol/L Calcium 8.8 (8.4-10.2) mg/dL Total Bilirubin 0.4 (0.2-1.3) mg/dL AST 32 (17-59) U/L ALT 35 (6-50) U/L Alkaline Phosphatase 95 (38-126) U/L Troponin I < 0.012 (0.000-0.034) ng/mL Total Protein 7.0 (6.3-8.2) g/dL Albumin 3.9 (3.5-5.1) g/dL Lipase 91 (23-300) U/L Urine Color Light yellow (Yellow) Urine Appearance Clear (Clear) Urine pH 7.0 (5.0-8.0) Ur Specific [place] 1.015 (1.010-1.020) Urine Protein Negative (Negative) Urine Glucose (UA) Negative (Negative) Urine Ketones Negative (Negative) Ur Blood (Man) Negative (Negative) Urine Nitrate Negative (Negative) Urine Bilirubin Negative (Negative) Urine Urobilinogen 0.2 (0.2-1.0) mg/dL Leukocyte Esterase Rfl Negative (Negative) GALILEA/UL Imaging Data Radiologist's impression: ITS Impressions Abdomen/Pelvis CT 08/10/24 06:31 Impression: No significant abnormalities seen. ECG Data EKG #1: Attestation: I personally reviewed and interpreted this ECG as follows: ECG completion date: 08/10/24 Interpretation: normal sinus rhythm at 67 beats per minute, no other abnormalities. Critical Care Time Critical Care Time Critical Care Time: No Discharge Plan Discharge Clinical Impression: Abdominal pain, Vomiting Patient Disposition: Home Condition: Improved Instructions: Abdominal Pain (ED) Additional Instructions: Return if symptoms are worsening , call your family physician for appointment, take Tylenol as as needed for aches and pain, continue home medications. Patient Language: Filipino Prescriptions: New ondansetron HCl 4 mg tablet 4 mg PO DAILY PRN (Reason: nausea and vomiting) 3 Days Qty: 10 0RF dicyclomine 20 mg tablet 20 mg PO QID PRN (Reason: abdominal pain) Qty: 20 0RF No Action albuterol sulfate 90 mcg/actuation HFA aerosol inhaler 2 puff INHALATION Q4-6H PRN (Reason: Shortness Of Breath Or Wheezing) Follow-up/Referrals: Gino Medel MD [Primary Care Provider] -
--- NOTE | 2024-08-10 05:42 | ECG_ITS ---
Test Date: 2024-08-10 05:57:39 Measurements Intervals [place] Rate: 67 P: 63 WI: 163 QRS: 76 QRSD: 106 T: 31 QT: 393 QTc: 416 Interpretive Statements SINUS RHYTHM WITH SINUS ARRHYTHMIA NORMAL ELECTROCARDIOGRAM Myocardial infarct finding now present Electronically Signed On 08-11-2024 12:58:09 CDT by Kai Lee M.D.
[2024-08-10 05:47] LABS: Hematocrit 45.7 % (40.0-54.0); Hemoglobin 14.9 g/dL (14.0-18.0); Immature Granulocyte Percent A 0.5 % (0.0-0.0); Lymphocytes Absolute Auto 1.56 K/mm3 (1.10-4.50); Mean Corpuscular HGB Conc 32.6 g/dL (32-36); Mean Corpuscular Hemoglobin 28.1 pg (27.0-31.0); Mean Corpuscular Volume 86.2 fL (78.0-102.0); Nucleated Red Blood Cells Absolute Auto 0.00 K/mm3 (0.00-0.00); Nucleated Red Blood Cells Perc 0.0 % (0-0.0); Platelet Count Result 258 K/mm3 (150-420); Red Blood Count 5.30 M/mm3 (4.70-6.10); White Blood Count 5.9 K/mm3 (4.8-10.8)
[2024-08-10] MEDS: SODIUM CHLORIDE 0.9% IV 1,000 ML 999 ML IV CONT (05:52)
[2024-08-10] MEDS: ONDANSETRON INJ 4 MG/2 ML VIAL IV PUSH (05:53)
[2024-08-10] MEDS: HYDROmorphone HCL INJ (*CRX) 2 MG/ML VIAL 0.5 MG IV PUSH (05:53)
[2024-08-10 05:56] LABS: Alanine Aminotransferase 35 U/L (6-50); Albumin Level 3.9 g/dL (3.5-5.1); Alkaline Phosphatase 95 U/L (38-126); Anion Gap 6 mmol/L (4-12); Aspartate Amino Transferase 32 U/L (17-59); Bilirubin,Total 0.4 mg/dL (0.2-1.3); Blood Urea Nitrogen 17 mg/dL (9-20); Calcium 8.8 mg/dL (8.4-10.2); Carbon Dioxide 25 mmol/L (22-30); Chloride 109 mmol/L (98-107); Estimated CRCL calculation 75 ml/min; Estimated Glomerular Filt Rate 58; Glucose 115 mg/dL (65-110); Lipase 91 U/L (23-300); Osmolality Calculated 292 mOsm/kg (285-295); Potassium 3.9 mmol/L (3.4-5.0); Sodium 140 mmol/L (137-145); Total Protein 7.0 g/dL (6.3-8.2)
[2024-08-10 05:58] LABS: INR 0.9; Partial Thromboplastin Time 25.1 Sec (23.9-30.70); Prothrombin Time 9.6 Seconds (9.50-12.1)
[2024-08-10 06:00] VITALS: BP 125/84; PULSE 84; RESP 20; O2SAT 95
[2024-08-10 06:08] LABS: Troponin I < 0.012 ng/mL (0.000-0.034)
--- OUTSIDE RECORDS SUMMARY | 2024-08-10 06:08 | XMS_ITS | Clinical Summary ---
Author Organization [facility] Address [address] [place] [address] Care Team Providers Care Creeler Name Role Phone Gino Medel MD Primary Care Provider [phone] Allergies Active Allergy Reactions Criticality Noted Date [...] Comments Blood Pressure 159/86 01/13/2024 7:49 PM [facility] Pulse 86 01/13/2024 7:49 PM [facility] Temperature 36.4 C (97.5 F) 01/13/2024 7:49 PM [facility] Respiratory Rate 16 01/13/2024 7:49 PM [facility] Oxygen Saturation 99% 01/13/2024 7:49 PM [facility] Inhaled Oxygen Concentration - - Weight 113.4 kg (250 lb) 01/13/2024 7:49 PM [facility] Height 170.2 cm (5' 7) 01/13/2024 7:49 PM [facility] Body Mass Index 39.16 01/13/2024 7:49 PM [facility] Plan of Treatment Health Maintenance Due Date [...] this topic Insurance [employer] Care Teams Creeler Relationship Specialty Start Date End Date Gino Medel MD [address] [place] [address] PCP - General FAMILY PRACTICE 03/05/23
[2024-08-10 06:30] LABS: Add Urine Microscopic? NO; Appearance Urine Clear (Clear); Glucose Urine UA Negative (Negative); Leukocyte Esterase Ur Negative LEU/UL (Negative); Nitrate Urine Negative (Negative); Specific Grav Ur 1.015 (1.010-1.020)
[2024-08-10 07:11] VITALS: BP 125/79; PULSE 85; RESP 18; TEMP 36.6; O2SAT 98
== END 2024-08-10 07:11 | disposition home or self-care (01) ==
PROVIDERS: Emergency Provider Emergency Medicine; PCP Family Medicine
DX: R11.10 Vomiting, unspecified (principal); R10.10 Upper abdominal pain, unspecified
CPT/HCPCS: 36415; 74177; 80053; 81003; 83605; 83690; 84484; 85025; 85610; 85730; 93005; 96361; 96374; 96375; 99284; J1171; J2405; J7030; Q9967

== ENCOUNTER 2025-01-16 02:38 | Emergency (ER) | payer OTHER, SELFPAY ==
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
[2025-01-16 02:39] VITALS: BP 151/97; PULSE 94; RESP 18; TEMP 36.4; O2SAT 100
[2025-01-16 04:49] VITALS: BP 127/91; PULSE 64; RESP 20; TEMP 36.6; O2SAT 97
--- NOTE | 2025-01-16 07:07 | ED.GENADULT ---
HPI - General Adult General Chief complaint: Back Pain/Injury Stated complaint: back pain Time Seen by Provider: 01/16/25 06:50 History of Present Illness HPI narrative: 49-year-old male present to the emergency department for evaluation for head neck left-sided chest and back pain after having a fall. Patient states he was getting out of his pickup truck when he stepped on to a patch the ice and fell striking the ground. Patient denies loss consciousness. Patient states his left chest hurt and is worsened with movement and breathing. Patient denies any prior intracranial injury, neck surgery her back surgery. Patient is not on any blood thinners. Patient denies any associated numbness or weakness. Related Data Home Medications ?Medication ?Instructions ?Recorded ?Confirmed ?Last Taken ?Type albuterol sulfate 90 mcg/actuation 2 puff inhalation Q4-6H PRN 11/02/23 11/02/23 Unknown History aerosol inhaler Shortness Of Breath Or Wheezing Allergies Allergy/AdvReac Type Severity Reaction Status Date / Time haloperidol Allergy Severe Anaphylaxis Verified 04/26/24 19:11 Review of Systems Review of Systems: All systems reviewed & are unremarkable except as noted in HPI and below PMFSH Past Medical History Medical History Asthma Abdominal pain, RUQ Social History Social History Smoking status: Never smoker Second hand tobacco smoke exposure: Yes Alcohol intake: never Gender identity (if verbalized by the patient): Male Exam Narrative: APPEARANCE: Well appearing, no pain, no distress, well-nourished. HEAD: normocephalic, atraumatic. EYES: PERRLA/EOMI, conjunctivae clear. NOSE: Normal no drainage EARS:TMS clear with good light reflex. THROAT: Pharynx clear, no exudate. NECK: Supple. No adenopathy, no masses. RESPIRATORY: Airway patent, respirations nonlabored. Clear to auscultation bilaterally, no rales, rhonchi, wheezing. CARDIOVASCULAR: Regular rate and rhythm without murmurs rubs or gallops. ABDOMINAL: Soft, nontender, nondistended, normal bowel sounds MUSCULOSKELETAL: Left-sided chest wall tenderness to palpation NEURO: Alert. Cranial nerves II through XII intact. Good gait. Good coordination SKIN: Warm, dry. Normal Color Course Vital Signs Vital signs: Vital Signs Temperature 97.5 F L 01/16/25 02:39 Pulse Rate 94 01/16/25 02:39 Respiratory Rate 18 01/16/25 02:39 Blood Pressure 151/97 H 01/16/25 02:39 Pulse Oximetry 100 01/16/25 02:39 Oxygen Delivery Room Air 01/16/25 02:39 Temperature 97.8 F 01/16/25 04:49 Pulse Rate 79 01/16/25 10:10 Respiratory Rate 16 01/16/25 10:10 Blood Pressure 135/86 01/16/25 10:10 Pulse Oximetry 98 01/16/25 10:10 Oxygen Delivery Room Air 01/16/25 04:49 [facility] Narrative Medical decision making narrative: 41-year-old male presents emergency department for evaluation after having a fall from the height of a pickup truck. Patient did strike his head and does have left-sided chest and back pain. CT head neck were ordered to evaluate for subdural hematoma, subarachnoid hemorrhage, cervical spine fracture. Patient was provided medication for pain control. Patient family updated on the plan for pain control and likely plan for the diagnostic workup. Patient was treated with IV Dilaudid and p.o. Flexeril. Patient had negative imaging of the brain, cervical spine and chest abdomen pelvis. On re-evaluation patient states does feel improved. Patient was updated results of workup. All questions concerns were addressed. Differential Diagnosis Differential Diagnosis: Subdural hematoma, subarachnoid hemorrhage, cervical spine fracture, pulmonary contusion, pneumothorax, rib fracture Lab Data [facility] Lab Attestation statement: I personally reviewed the patient's lab results. 01/16/25 08:04 01/16/25 08:04 Labs: Lab Results 01/16/25 Range/Units 08:04 WBC 7.3 (4.5-10.0) K/mm3 RBC 5.60 (4.6-6.20) M/mm3 Hgb 15.9 (14.0-18.0) g/dL Hct 48.9 (42.0-52.0) % MCV 87.3 (80-100) fl MCH 28.4 (26-34) pg MCHC 32.5 (32-36) g/dl RDW 13.6 (11.5-14.5) % Plt Count 281 (150-375) k/mm3 MPV 9.2 (7.4-10.4) fl Immature Gran % (Auto) 0.3 (0-0.5) % Neut % (Auto) 55.7 (45.5-73.1) % Lymph % (Auto) 31.4 (18.3-44.2) % [place] % (Auto) 9.2 H (2.6-8.5) % Eos % (Auto) 2.6 (0-4.4) % Baso % (Auto) 0.8 (0.2-1.2) % Lymph # (Auto) 2.29 (0.9-3.2) K/mm3 [place] # (Auto) 0.7 H (0.1-0.6) K/mm3 Eos # (Auto) 0.2 (0-0.3) K/mm3 Baso # (Auto) 0.1 (0.0-0.1) K/mm3 Abs Immat Gran (auto) 0.02 (0.00-0.031) K/mm3 Absolute Neuts (auto) 4.1 (1.3-6.7) K/mm3 Absolute Nucleated RBC 0.000 (0.0-0.012) K/mm3 Nucleated RBC % 0.0 (0.0-0.2) % PT 12.6 (11.1-14.7) Seconds INR 0.9 APTT 27.9 (22.3-36.8) Seconds Sodium 138 (137-145) mmol/L Potassium 4.4 (3.4-5.0) mmol/L Chloride 108 H (98-107) mmol/L Carbon Dioxide 25 (22-30) mmol/L Anion Gap 5 (4-12) mmol/L BUN 13 (9-20) mg/dL Creatinine 1.14 (0.7-1.3) mg/dL Estim Creat Clear Calc 79 ml/min Estimated GFR > 60 (59 - ) Glucose 107 (65-110) mg/dL Calcium 9.3 (8.4-10.2) mg/dL Total Bilirubin 0.6 (0.2-1.3) mg/dL AST 37 (17-59) U/L ALT 42 (6-50) U/L Alkaline Phosphatase 87 (38-126) U/L Total Protein 7.8 (6.3-8.2) g/dL Albumin 4.4 (3.5-5.1) g/dL Imaging Data Radiologist's impression: ITS Impressions Cervical Spine CT 01/16/25 09:18 IMPRESSION: HEAD: 1. No acute intracranial findings. C-SPINE: 1. No acute fracture. Head CT 01/16/25 09:18 IMPRESSION: HEAD: 1. No acute intracranial findings. C-SPINE: 1. No acute fracture. Chest/Abdomen/Pelvis CT 01/16/25 09:19 IMPRESSION: 1. No posttraumatic findings. Discharge Plan Discharge Clinical Impression: Neck pain, Chest wall contusion, Rib pain on left side Patient Disposition: Home Condition: Stable Instructions: Antibiotic Form, How to Use an Incentive Spirometer (ED), Rib Contusion (ED) Additional Instructions: Ibuprofen for pain control. Flexeril for muscle spasm. Sherrill as needed for additional pain control. Incentive spirometer as directed. If you have any worsening symptoms then please call or return to the emergency department. Patient Language: Cook Islander Prescriptions: New cyclobenzaprine 10 mg tablet 10 mg PO BID PRN (Reason: muscle spasm) Qty: 14 0RF hydrocodone-acetaminophen 5-325 mg tablet 1 tablet PO Q12H PRN (Reason: pain) Qty: 14 0RF No Action ondansetron HCl 4 mg tablet 4 mg PO DAILY PRN (Reason: nausea and vomiting) 3 Days Qty: 10 0RF dicyclomine 20 mg tablet 20 mg PO QID PRN (Reason: abdominal pain) Qty: 20 0RF albuterol sulfate 90 mcg/actuation HFA aerosol inhaler 2 puff INHALATION Q4-6H PRN (Reason: Shortness Of Breath Or Wheezing) Follow-up/Referrals: Gino Medel MD [Primary Care Provider, Internal Medicine]
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
--- OUTSIDE RECORDS SUMMARY | 2025-01-16 07:08 | XMS_ITS | Clinical Summary ---
Author Organization [facility] Address [address] [place] [address] Care Team Providers Care [employer] Skimmer Name Role Phone Gino Medel MD Primary Care Provider [phone] Allergies Active Allergy Reactions Criticality Noted Date [...] pure alcohol) drank alot before [facility] - rfarely now Sex and Gender Information Value Date Recorded Sex Assigned at Male 08/10/2024 2:06 PM CDT Legal Sex Male 3:04 AM CDT Gender Identity Not on file Sexual Orientation Not on file Last Filed Vital Signs Vital Sign Reading Time Taken Comments Blood Pressure 104/55 08/10/2024 3:30 PM CDT Pulse 82 08/10/2024 1:08 PM CDT Temperature 36.1 C (97 F) 08/10/2024 1:08 PM CDT Respiratory Rate 20 08/10/2024 1:08 PM CDT Oxygen Saturation 97% 08/10/2024 3:30 PM CDT Inhaled Oxygen Concentration - - Weight 114.7 kg (252 lb 12.8 oz) 08/10/2024 1:08 PM CDT Height 170.2 cm (5' 7) 08/10/2024 1:08 PM CDT Body Mass Index 39.59 08/10/2024 1:08 PM CDT Plan of Treatment Health Maintenance Due Date Last Done Comments Colorectal Cancer Screening Colonoscopy (10 Years) 1976 Annual Physical 11/16/1979 Hepatitis C 1994 Hepatitis B Vaccines (1 of 3 - 19+ 3-dose series) 11/16/1995 COVID-19 Vaccine (2024-2 6 season) 2024 Influenza Adult (#1) 2024 DTaP, Tdap and Td Vaccines ( 2 - Td or Tdap) 08/28/2029 08/29/2019 Hepatitis A Vaccines Aged Out No long er eligible based on patient's age to complete this topic Meningococcal B Vaccine Aged Out No l [...] patient's age to complete this topic Insurance MEDICAID Care Teams [employer] Skimmer Relationship Specialty Start Date End Date Gianfranco, Gino, MD [address] [place] [address] PCP - General FAMILY PRACTICE 03/05/23
[2025-01-16 08:09] LABS: Hematocrit 48.9 % (42.0-52.0); Hemoglobin 15.9 g/dL (14.0-18.0); Immature Granulocyte Percent A 0.3 % (0-0.5); Lymphocytes Absolute Auto 2.29 K/mm3 (0.9-3.2); Mean Corpuscular HGB Conc 32.5 g/dl (32-36); Mean Corpuscular Hemoglobin 28.4 pg (26-34); Mean Corpuscular Volume 87.3 fl (80-100); Nucleated Red Blood Cells Absolute Auto 0.000 K/mm3 (0.0-0.012); Nucleated Red Blood Cells Perc 0.0 % (0.0-0.2); Platelet Count Result 281 k/mm3 (150-375); Red Blood Count 5.60 M/mm3 (4.6-6.20); White Blood Count 7.3 K/mm3 (4.5-10.0)
[2025-01-16 08:20] LABS: Alanine Aminotransferase 42 U/L (6-50); Albumin Level 4.4 g/dL (3.5-5.1); Alkaline Phosphatase 87 U/L (38-126); Anion Gap 5 mmol/L (4-12); Aspartate Amino Transferase 37 U/L (17-59); Bilirubin,Total 0.6 mg/dL (0.2-1.3); Blood Urea Nitrogen 13 mg/dL (9-20); Calcium 9.3 mg/dL (8.4-10.2); Carbon Dioxide 25 mmol/L (22-30); Chloride 108 mmol/L (98-107); Estimated CRCL calculation 79 ml/min; Estimated Glomerular Filt Rate > 60; Glucose 107 mg/dL (65-110); Potassium 4.4 mmol/L (3.4-5.0); Sodium 138 mmol/L (137-145); Total Protein 7.8 g/dL (6.3-8.2)
[2025-01-16 08:26] LABS: INR 0.9; Prothrombin Time 12.6 Seconds (11.1-14.7)
[2025-01-16 08:27] LABS: Partial Thromboplastin Time 27.9 Seconds (22.3-36.8)
[2025-01-16] MEDS: HYDROmorphone HCL INJ (*CRX) 1 MG/ML SYR IV PUSH (08:35)
[2025-01-16] MEDS: CYCLOBENZAPRINE HCL 10 MG TABLET PO (08:39)
[2025-01-16 08:41] VITALS: BP 141/88; PULSE 79; RESP 14; O2SAT 98
[2025-01-16 10:10] VITALS: BP 135/86; PULSE 79; RESP 16; O2SAT 98
== END 2025-01-16 10:12 | disposition home or self-care (01) ==
PROVIDERS: Emergency Provider Emergency Medicine; PCP Family Medicine
DX: S20.212A Contusion of left front wall of thorax, initial encounter (principal); S19.9XXA Unspecified injury of neck, initial encounter; J45.909 Unspecified asthma, uncomplicated; W00.0XXA Fall on same level due to ice and snow, initial encounter
CPT/HCPCS: 36415; 70450; 71260; 72125; 74177; 80053; 85025; 85610; 85730; 96374; 99284; A9270; J1171; Q9967